=== PATIENT | male | born 1940 | race Caucasian/White ===

== ENCOUNTER 2021-12-18 09:42 | Inpatient (IN) ==
--- NOTE | 2021-12-04 14:10 | Anesthesiology Consultation ---
Date of Service December 04, 2021 Assessment & Plan (1) Encounter for pre-operative examination: Chart Review Chart Review: Acceptable Risk for Surgery and Patient NOT seen in Pre Admission Testing Consults Requested none History Surgery Operation Date: 12/18/21 11:15 Proposed Procedures p Robotic Laparoscopic Assisted Partial Colectomy - Lucho Huff DO, FACS Height/Weight Height: 6 ft Weight: 77.564 kg Allergies Allergy/AdvReac Type Severity Reaction Status Date / Time No Known Allergies Allergy Verified 12/03/21 10:11 Medications Home Medications Medication Instructions Recorded Confirmed Last Taken apixaban 5 mg tablet (Eliquis) 5 mg PO BID 11/05/21 12/03/21 11/15/21 aspirin 81 mg tablet,delayed 81 mg PO QPM 11/05/21 12/03/21 11/17/21 release (Adult Low Dose Aspirin) cyanocobalamin (vitamin B-12) 1,000 mcg PO QPM 11/05/21 12/03/21 11/17/21 1,000 mcg capsule folic acid 1 mg tablet 1 mg PO QPM 11/05/21 12/03/21 11/17/21 lisinopril 2.5 mg tablet 2.5 mg PO QPM 11/05/21 12/03/21 11/17/21 metoprolol succinate 25 mg 25 mg PO QPM 11/05/21 12/03/21 11/17/21 tablet,extended release 24 hr multivitamin 1 tab PO QPM 11/05/21 12/03/21 11/17/21 simvastatin 40 mg tablet 40 mg PO QPM 11/05/21 12/03/21 11/17/21 spironolactone 25 mg tablet 25 mg PO QPM 11/05/21 12/03/21 11/17/21 thiamine HCl (vitamin B1) 100 mg 100 mg PO QPM 11/05/21 12/03/21 11/17/21 tablet pantoprazole 40 mg tablet,delayed 40 mg PO DAILY #30 tabs 11/18/21 12/03/21 Unknown release metronidazole 500 mg tablet 500 mg PO ONCE #3 tabs 11/26/21 12/03/21 Unknown neomycin 500 mg tablet 1 g PO .COMPLEX pre-op #6 tabs 11/26/21 12/03/21 Unknown Past Medical History Medical History A-[facility] on eliquis; [facility]" Adenocarcinoma of sigmoid colon Alcohol abuse Anemia hx CAD (coronary artery disease) COPD (chronic obstructive pulmonary disease) History of COVID-19 10/27/21, home test, not hosp; sore throat, chills, fever>resolved. History of GI bleed "continues to lose blood internally, so that's the reason for the scopes" Hx of lipoma neck Hx of syncope "has happened twice, last time was 2 years ago. taken to ER, found to be dehydrated." Hyperlipidemia Hypertension NICM (nonischemic cardiomyopathy) Smoker Vitamin B deficiency Past Family History Family History Father Coronary heart disease Aunt No problems noted. Denies family history of Colorectal cancer Past Surgical History Surgical History H/O colonoscopy 11-18-21 Case History of esophagogastroduodenoscopy (EGD) Hx of cataract extraction Hx of tooth extraction rt/lt Social History Smoking Status: Current every day smoker tobacco type: cigarettes Smoking cigarettes per day: 6-10 Do You Dip or Chew Tobacco: No Hx Alcohol Use: Yes Alcohol type: beer Alcohol Intake Frequency Comment: 2-3 drinks per day Hx Substance Use: No substance use type: does not use Testing Electrocardiogram Date: 07/31/21 Findings: + NSR @ Echocardiogram Date: 08/01/21 EF: 45-50 LV Function: normal
[~2021-12-18 09:42] MED LIST: LR 15ML/HR IV SCH; cefOXitin 2,000 MG in DEXTROSE 5% 50 ML IV SCH
[2021-12-18] MEDS ORDERED: fentaNYL citrate 100 MCG/2 ML VIAL ONE ×3 (10:43→13:42)
[2021-12-18] MEDS ORDERED: DEXAMETHASONE SOD INJ 4 MG/ML VIAL ONE (10:43)
[2021-12-18] MEDS ORDERED: ONDANSETRON INJ 2 MG/ML 2 ML VIAL ONE (10:43)
[2021-12-18] MEDS ORDERED: PROPOFOL IV EMULSION 10 MG/ML 20 ML VIAL IV ONE (10:43)
[2021-12-18] MEDS ORDERED: LIDOCAINE 2% MPF LOCAL 5 ML VIAL INFIL ONE (10:44)
[2021-12-18] MEDS ORDERED: ROCURONIUM BROMIDE 10 MG/ML 5 ML VIAL IV ONE ×11 (10:44→15:32)
[2021-12-18] MEDS ORDERED: ePHEDrine sulfate 50 MG/ML AMP IV PRN (11:23)
[2021-12-18] MEDS ORDERED: ATROPINE SULFATE 0.1 MG/ML 10ML SYR IV PRN (11:23)
[2021-12-18] MEDS ORDERED: NALOXONE HCL 0.4 MG/1 ML VIAL/CARP IV PRN ×2 (11:23→19:41)
[2021-12-18] MEDS ORDERED: PROMETHAZINE HCL 12.5 MG in SODIUM CHLORIDE 0.9% 50 ML IV PRN (11:23)
[2021-12-18] MEDS ORDERED: FLUMAZENIL 0.1 MG/1 ML 10 ML VIAL IV PRN (11:23)
[2021-12-18] MEDS ORDERED: ONDANSETRON INJ 2 MG/ML 2 ML VIAL IV PRN (11:23)
[2021-12-18] MEDS ORDERED: LABETALOL HCL IV 5 MG/ML 20ML IV PRN (11:23)
--- NOTE | 2021-12-18 11:51 | History & Physical Bridge Note ---
Date of Service December 18, 2021 History & Physical Bridge Note I have examined the patient, reviewed the History & Physical and in the interval since the performance of the History & Physical I have noted the following changes of clinical significance: no changes noted
[2021-12-18] MEDS ORDERED: BUPIVACAINE 0.5 % 5 MG/1 ML MPF 30ML VIAL ONE (12:18)
[2021-12-18] MEDS ORDERED: BUPIVACAINE LIPOSOME 1.3% 266 MG/20 ML VIAL ONE (12:18)
[2021-12-18] MEDS ORDERED: ESMOLOL HCL INJ 10 MG/ML 10ML VIAL IV ONE ×3 (12:45→13:25)
[2021-12-18] MEDS ORDERED: NEOSTIGMINE METHYLSULFATE 1 MG/ML 10ML VIAL ONE (12:56)
[2021-12-18] MEDS ORDERED: GLYCOPYRROLATE 0.2 MG/ML VIAL ONE ×2 (12:56→13:08)
[2021-12-18] MEDS ORDERED: hydrALAZINE HCL 20 MG/ML VIAL ONE (13:14)
[2021-12-18] MEDS ORDERED: METOPROLOL TARTRATE 1 MG/ML VIAL IV ONE (13:22)
[2021-12-18] MEDS ORDERED: INDOCYANINE GREEN 25 MG VIAL INJ ONE (16:23)
[2021-12-18] MEDS ORDERED: MoRPHine SULFATE 2 MG/ML CARP ONE (16:38)
--- NOTE | 2021-12-18 17:34 | Post Operative Brief Note ---
PG Immediate Post Op with CF Date of Surgery December 18, 2021 Pre & Post Diagnosis Operation Date: 12/18/21 11:50 Pre-Op Diagnosis: Sigmoid colon Cancer Post-Op Diagnosis: Rectosigmoid cancer I identified the patient and participated in the time-out.: Yes Procedure Operation Date: 12/18/21 11:50 Actual Procedures p Robotic Laparoscopic Assisted low anterior resection with mobilization of splenic flexure, end-to-end anastomosis, and diverting loop ileostomy- Lucho Huff DO, FACS Surgeon Lucho Huff DO, FACS Motion Picture Set Grip Cory Prescott; Nataliia Hogan Estimated Blood Loss 50 Findings Consistent with Post-Op Diagnosis Tattoo visible just distal to the rectosigmoid junction. Rigid proctoscopy performed during case, tumor appeared to be 10 cm to 15 cm. Low anterior resection performed with total mesorectal excision. Splenic flexure mobilized. High ligation of FRANK completed with stapler. Gel port placed, end to end bridger stomosis performed with 28 mm EEA. Leak test negative. Drain placed, diverting loop ileostomy performed. Exparel injected. Specimens Specimen Description: A. Sigmoid and rectum Distal donut Drains Contreras Catheter Anesthesia Type General Disposition Accompanied Patient To Recovery: No Disposition: Recovery Room
[2021-12-18] MEDS ORDERED: SUGAMMADEX SODIUM 200 MG/2 ML VIAL IV ONE (17:43)
--- NOTE | 2021-12-18 17:49 | Operative Report ---
PG Post Operative Report Pre & Post Diagnosis Operation Date: 12/18/21 11:50 Pre-Op Diagnosis: Sigmoid colon Cancer Post-Op Diagnosis: Recto-sigmoid colon Cancer I identified the patient and participated in the time-out.: Yes Procedure Operation Date: 12/18/21 11:50 Actual Procedures p Robotic Laparoscopic assisted low anterior resection with mobilization of splenic flexure and end-to-end anastomosis, diverting loop ileostomy- Lucho Huff DO, FACS Surgeon Lucho Huff DO, DIMITRIS Jig Inspector Cory Prescott; Nataliia Hogan Estimated Blood Loss 50 Findings Consistent with Post-Op Diagnosis Tattoo visible just distal to the rectosigmoid junction. Rigid proctoscopy performed during case, tumor appeared to be 10 cm to 15 cm. Low anterior resection performed with total mesorectal excision. Splenic flexure mobilized. High ligation of FRANK completed with stapler. Gel port placed, end to end anastomosis performed with 28 mm EEA. Leak test negative. Drain placed, diverting loop ileostomy performed. Exparel injected. Fluids 1500 cc Specimens A. Sigmoid and rectum Rectal margin Drains 10 mm flat ROSALIE at colorectal anastomosis Anesthesia Type General Complications none Disposition Accompanied Patient To Recovery: No Disposition: Recovery Room Indications 81-year-old male with distal sigmoid colon cancer on recent colonoscopy for anemia, plan for robotic assisted laparoscopic partial colectomy. The risks of the procedure were discussed, all questions were answered, and the patient agreed to proceed with surgery as planned. Description of Procedure The patient underwent a bowel prep with antibiotics the day prior to surgery. The patient was properly identified, consented, and taken to the operating room where he was placed in the low lithotomy position. General endotracheal anesthesia was induced. SCDs, Contreras catheter, and arterial line, and NG tube were placed. Preoperative antibiotics were administered. Patient's abdomen and rectum were prepped and draped in the standard sterile fashion. Surgical timeout was performed and all parties were in agreement as the correct patient and procedure to be performed we continued as planned. An incision was made just to the right of the umbilicus and the Veress needle was inserted. Saline drop test confirmed entry into the abdomen. The abdomen was insufflated with carbon dioxide which the patient tolerated without incident. The Veress needle was removed and the abdomen was entered using the Optiview technique. The abdomen was inspected and no damage from initial trocar placement or Veress needle was noted. The abdomen was inspected and there was some staining from tattoo injection along the peritoneum. There was no evidence of carcinomatosis or metastatic disease. A portion of the tattoo did appear visible just distal to the sigmoid colon. At this point we elected to proceed with surgery. A 12 mm robotic port was placed in the right lower quadrant. 8 mm robotic ports were placed in the left upper quadrant x2. The robot was docked and the patient was placed in the Trendelenburg position and rotated slightly to the right. The small bowel was swept to the right upper quadrant. The colon was inspected and the tattoo was again visualized. This appeared to be in the high rectum and not in the sigmoid colon. The peritoneum was incised and we attempted a medial to lateral dissection, however we were unsuccessful. I then performed a lateral to medial dissection by taking down the white line of Toldt as well as some adhesions of the sigmoid colon to the lateral abdominal wall. This was accomplished using cautery scissors and extended from the sacral promontory along the sigmoid colon and left colon. The left ureter was identified and preserved throughout the case. We continued our dissection and a partial mobilization of the splenic flexure was performed. The descending and sigmoid colon were quite floppy so we did not have to complete a full mobilization of the splenic flexure. I then continued to dissect the mesentery of the left colon and sigmoid colon off of the retroperitoneum. It appeared that we would have adequate length to reach down into the pelvis. We then continued our dissection into the pelvis. The peritoneum was incised at the sacral promontory. The hypogastric nerves were identified and spared. The mesorectum was then dissected posteriorly. The hemorrhoidal vessels were divided with the vessel sealer. The posterior portion of the rectum and the mesorectal envelope were completely dissected. We were unable to identify the distal end of the tumor. My patient care nursing assistant performed a rigid proctoscopy and identified the tumor between 10 to 15 cm. We then proceeded to complete the dissection by taking down the lateral stalks and scoring the anterior portion of the peritoneum. We then used a green loaded 45 mm robotic stapler with multiple fires to perform the distal resection. Care was taken to get as far below the tattoo as we could. Once this was completed we then resected portions of the mesentery using the vessel sealer until we arrived at the inferior mesenteric artery. A high ligation of the inferior mesenteric artery was then completed using the briseno loaded robotic stapler. Hemostasis appeared excellent. We then completed the resection of the mesentery until we were in the sigmoid colon. ICG was then injected and the descending colon appeared to be well perfused. At this point we elected to exteriorize the colon to complete our anastomosis. The robot was undocked. A low midline incision was then performed for approximately 8 cm. The fascia was incised. A wound protector was placed. The patient's abdomen was draped with towels. The rectum and sigmoid colon were then exteriorized. We identified the area for our resection point that was within the descending colon that had excellent blood supply on ICG visualization. The proximal colon was clamped with a bowel clamp and the resection was completed using scissors. EEA sizers were placed and appeared to accommodate a 28 mm EEA stapler. This was then selected and the anvil was sewn into the descending colon with a pursestring suture of 2-0 Prolene. A small gap was identified and this was closed with a 3-0 Vicryl suture. The specimen was passed off the table. The distal resection point was palpated and the tumor appeared to be somewhat close to the staple line, but it did appear that we had completely resected the tumor. The area around the anvil was cleared of investing fat. The colon was allowed to drop back into the abdomen. A GelPort was placed. The abdomen was then reentered laparoscopically. The stapler was then inserted into the rectum and the spike was advanced just anterior to the staple line. This was connected to the anvil and the stapler was closed. The stapler was fired, opened, and then removed. There were 2 good donuts, and the distal resection margin appeared to be free of any tumor. This was sent to pathology. The anastomosis was then inspected with the rigid proctoscope by my patient care nursing assistant and appeared to be healthy without any evidence of bleeding. A leak test was performed and was negative. The abdomen was inspected and hemostasis appeared to be excellent. The anastomosis did not have any twists and appeared to be well perfused and healthy. Laparoscopy was ceased and the wound protector was removed. A 10 mm flat ROSALIE d rain was placed in the pelvis and exited through the left lower quadrant. It was secured into place with a 2-0 nylon suture. Due to the very distal anastomosis, we elected to perform a diverting loop ileostomy. A healthy piece of ileum approximately 20 to 30 cm proximal to the ileocecal valve was brought through the right lower quadrant 12 mm port after it was slightly extended. The pelvis was irrigated and hemostasis appeared excellent. The peritoneum was closed with a running 2-0 Vicryl suture. The fascia was closed with a running #0 PDS suture. The wound was irrigated and hemostasis was good. Exparel was injected in the fascia and subcutaneous tissues. The port sites was closed with 4-0 Monocryl suture and Dermabond was placed over these. The low midline incision was closed with cedrick and a sterile dressing was applied. The ileostomy was then matured. A section of the ROSALIE drain was used as the ostomy bar. This was placed through a window in the mesentery and secured into place with 2-0 nylon sutures on each end. The ileum was then opened transversely and the proximal end was matured with 3-0 Vicryl sutures in a Romina fashion. The distal end was sutured to the skin with 3-0 Vicryl suture. An ostomy device was placed. The ostomy appeared patent and healthy. Anesthesia was ceased and the patient was extubated in the operating room and taken to the PACU to recover without apparent incident. All sponge, instrument, and needle counts were correct at the conclusion of the case. The patient tolerated the procedure well. The physician's assistants were present and scrubbed throughout the case and were critical in positioning the patient, prepping and draping, retraction and exposure, driving the laparoscope, exchange of the robotic instruments, performa nce of the rigid proctoscopy, assistance with the anastomosis, closure the fascia and skin incisions, return to the ostomy, and placement of the dressings. I attest to the content of the Intraoperative Record and any orders documented therein. Any exceptions are noted below.
[2021-12-18] MEDS ORDERED: ALBUMIN HUMAN 5% 12.5 GM/250 ML VIAL IV ONE (18:13)
[2021-12-18] MEDS: fentaNYL citrate 100 MCG/2 ML VIAL IV PRN ×4 (18:25→18:40)
--- NOTE | 2021-12-18 18:31 | XRay Report ---
XR KUB/Abdomen 1 view CLINICAL HISTORY: ng tube placement TECHNIQUE: 1 view of the abdomen was obtained. Comparison: None available at the time of this dictation. FINDINGS: Enteric tube side-port is below the diaphragm. Surgical cedrick are seen in the lower abdomen. The os seous structures are grossly unremarkable. The bowel gas pattern is nonobstructive. A moderate amount of stool is noted within the large bowel. IMPRESSION: Satisfactory appearance of enteric tube. ACT 112: Negative or not required by law. Electronically signed by: Santino Bocanegra M.D. 12/18/2021 6:29 PM
[2021-12-18] MEDS: HYDROmorphone INJ 1 MG/ML SYRINGE IV PRN ×2 (18:46→18:51)
--- NOTE | 2021-12-18 19:25 | Anesthesiology Progress Note ---
Date of Service December 18, 2021 Anesthesia Post Procedure Vital Signs Vital Signs: Temp Pulse Pulse Resp BP BP Pulse Ox 12/18/21 18:45 36.6 C 89 15 109/60 98 12/18/21 18:35 86 14 115/60 99 12/18/21 18:25 79 15 110/53 L 105/48 L 100 12/18/21 18:15 82 14 94/51 L 100 12/18/21 18:05 80 14 85/61 L 100 12/18/21 17:55 85 16 103/71 100 12/18/21 19:20 86 16 107/60 95 12/18/21 19:11 84 18 100/57 L 97 12/18/21 18:55 88 17 115/67 97 12/18/21 17:48 36.5 C 96 H 23 121/66 98 12/18/21 10:08 36.8 C 97 H 20 139/84 98 O2 Del Method O2 Flow Rate 12/18/21 18:45 Nasal Cannula 2 12/18/21 18:35 Oxymask 4 12/18/21 18:25 Oxymask 4 12/18/21 18:15 Oxymask 4 12/18/21 18:05 Oxymask 4 12/18/21 17:55 Oxymask 6 12/18/21 19:20 Nasal Cannula 2 12/18/21 19:11 Nasal Cannula 2 12/18/21 18:55 Nasal Cannula 2 12/18/21 17:48 Oxymask 6 12/18/21 10:08 Room Air Pain Intensity Abdomen: Pain Intensity: 5 Transfer of Care Handoff Completed per policy Notes Mental Status: alert / awake / arousable Patient Amnestic to Procedure: Yes Nausea / Vomiting: adequately controlled Pain: adequately controlled Airway Patency, RR, SpO2: stable & adequate BP & HR: stable & adequate Hydration State: stable & adequate Anesthetic Complications: no major complications apparent
[2021-12-18 20:42] LABS: Creatinine Clr Calc Pharmacy 54.4 ml/min; Est GFR (African American) 69.5 ml/min
[2021-12-18] MEDS: HYDROmorphone PCA 30 MG/30 ML IV PRN (21:23)
[2021-12-18] MEDS: SODIUM CHLORIDE 0.9% 1000ML 1,000 ML IV SCH (22:33)
[2021-12-18] MEDS: ACETAMINOPHEN 1,000 MG/100 ML VIAL IV SCH (22:34)
[2021-12-18] MEDS: cefOXitin 2,000 MG in DEXTROSE 5% 50 ML IV SCH (22:34)
[2021-12-18] MEDS: LACTATED RINGER'S 1,000 ML IV SCH (22:34)
[2021-12-18] MEDS: METOPROLOL SUCC 25MG EXT REL TAB PO SCH (22:49)
[2021-12-19] MEDS: cefOXitin 2,000 MG in DEXTROSE 5% 50 ML IV SCH ×3 (04:12→15:49)
[2021-12-19 06:23] LABS: Basophils # (auto) 0.01 K/uL (0-0.2); Basophils % (auto) 0.1 %; Hematocrit (blood only) 36.2 % (40.1-51.0); Hemoglobin 11.3 g/dl (14.0-18.0); Immature Granulocytes # (auto) 0.03 K/uL (0.00-0.02); Immature Granulocytes % (auto) 0.4 %; Lymphocytes # (auto) 0.35 K/uL (1.2-3.4); Lymphocytes % (auto) 4.3 %; Mean Corpuscular Hemoglobin 28.1 pg (25.0-34.0); Mean Corpuscular Hgb Conc 31.2 g/dL (32.0-36.0); Mean Platelet Volume 9.7 fL (9.4-12.4); Monocytes # (auto) 1.03 K/uL (0.24-0.82); Monocytes % (auto) 12.5 %; Neutrophils # (auto) 6.81 K/uL (1.4-6.5); Neutrophils % (auto) 82.7 %; Platelet Count 224 K/uL (130-400); RDW Coefficient of Variation 17.2 % (11.5-14.5); RDW Standard Deviation 57.3 fL (36.4-46.3); Red Blood Count 4.02 M/uL (4.63-6.08); White Blood Count 8.23 K/ul (4.8-10.8)
[2021-12-19] MEDS: ACETAMINOPHEN 1,000 MG/100 ML VIAL IV SCH ×3 (06:26→21:17)
[2021-12-19] MEDS: LACTATED RINGER'S 1,000 ML IV SCH ×3 (06:27→23:48)
[2021-12-19 07:01] LABS: BUN Creatinine Ratio 13.1 (10-20); Calcium 8.4 mg/dl (8.5-10.1); Est GFR (African American) 75.1 ml/min; Est GFR (Non-African American) 64.8 ml/min; Potassium 4.6 mmol/L (3.5-5.1)
[2021-12-19] MEDS: ENOXAPARIN INJ 40 MG/0.4 ML SYR SQ SCH (08:51)
[2021-12-19] MEDS: PANTOprazole 40 MG in SYRINGE 0 ML IV SCH (08:53)
--- NOTE | 2021-12-19 11:22 | Surgery Progress Note ---
Date of Service December 19, 2021 Assessment & Plan (1) Colon cancer: Plan: POD 1 robotic assisted LAR Hgb 11 ambulate d/c NG begin Lovenox start clears Admission and Anticipated Discharge Date Admission Date: December 18, 2021 Supervising Physician Co-Signing Physician Notes Patient seen and examined, labs reviewed, agree with above. POD #1 robotic assisted low anterior resection with colorectal anastomosis and diverting loop ileostomy. Overall doing well, minimal pain and well controlled. On exam he is afebrile with stable vitals. Abdomen is soft, probably tender to palpation. The midline incision without infection or seroma/hematoma. ROSALIE drain serosanguineous. Ileostomy with mild edema, some sweat in the bag. H&H slightly decreased, likely dilutional. NG tube and Contreras DC'd, ambulate, I-S, Lovenox prophylaxis. Clear liquids. Subjective pain control adequate, not OOB Physical Exam Constitutional: WD/WN, vitals as above Gastrointestinal (Abdomen): Inspection/Auscultation: + abdominal surgical incision (dressing intact) and + abdominal surgical drain present (15 cc); abdomen not distended UOP 450 overnight ileostomy pink, edematous Results & Data ([facility]) Vital Signs (Past 12 Hours) Vital Signs Temp Pulse Pulse Resp BP Pulse Ox O2 Del Method 12/19/21 10:51 Room Air 12/19/21 08:00 36.7 C 78 14 106/53 L 99 Room Air 12/19/21 02:24 36.7 C 82 16 102/54 L 99 Nasal Cannula 12/19/21 00:38 36.4 C L 83 12 101/58 L 100 Nasal Cannula 12/18/21 23:27 36.7 C 73 72 15 102/50 L 99 Nasal Cannula O2 Flow Rate 12/19/21 10:51 12/19/21 08:00 12/19/21 02:24 2.0 12/19/21 00:38 2.0 12/18/21 23:27 2 PG Care Time/CCT Total # of Minutes Spent Total Time Spent with Patient: Total time spent is greater than 50% in coordination of care (as documented) at patient's floor/unit and/or counseling patient: Coding Level of Care Code None Diagnoses Colon cancer C18.9
[2021-12-19] MEDS: METOPROLOL SUCC 25MG EXT REL TAB PO SCH (14:45)
[2021-12-19] MEDS: SODIUM CHLORIDE 0.9% 1000ML 1,000 ML IV SCH (21:16)
[2021-12-19] MEDS: ASPIRIN 81 MG ECTAB PO SCH (21:16)
--- NOTE | 2021-12-19 23:02 | Communication Note ---
Date of Service: December 19, 2021 I was notified by nursing staff the patient was found to be tachycardic with heart rate anywhere from 1 10-1 40 on routine vitals. Twelve-lead EKG was ordered. I arrived at bedside to evaluate the patient within 5 minutes. Patient notes he is entirely asymptomatic without chest pain, shortness of breath, or palpitations On physical exam his heart rate is irregularly irregular. Blood pressure is 110/60. Heart rate is anywhere from 140-150. Twelve-lead EKG shows atrial fibrillation with nonspecific ST/T wave changes. Patient's chart was reviewed and preoperative EKG did show normal sinus rhythm. Preoperative echo did show patient had approximately 50% ejection fraction and normal LV function. Patient does have a history of atrial fibrillation in the past. He does take Eliquis as an outpatient but this has been held due to his recent surgery. He does take metoprolol which has been resumed postoperative Due to his atrial fibrillation we will proceed as follows: We will administer a 500 cc bolus of normal saline We will check labs including a CBC, PRP, magnesium, TSH, and troponin We will transfer patient to telemetry unit for close cardiovascular monitoring We will administer intravenous Lopressor once he is transferred to the telemetry unit We will request hospitalist consultation. I have discussed case with Dr. Thompson who will evaluate the patient upon arrival to the telemetry unit for
[2021-12-19 23:30] LABS: Basophils # (auto) 0.01 K/uL (0-0.2); Basophils % (auto) 0.1 %; Eosinophils # (auto) 0.02 K/uL (0-0.50); Eosinophils % (auto) 0.3 %; Hemoglobin 11.2 g/dl (14.0-18.0); Immature Granulocytes # (auto) 0.03 K/uL (0.00-0.02); Immature Granulocytes % (auto) 0.4 %; Lymphocytes # (auto) 0.74 K/uL (1.2-3.4); Lymphocytes % (auto) 9.7 %; Mean Corpuscular Hemoglobin 28.1 pg (25.0-34.0); Mean Corpuscular Hgb Conc 31.1 g/dL (32.0-36.0); Mean Corpuscular Volume 90.5 fL (80.0-100.0); Mean Platelet Volume 9.5 fL (9.4-12.4); Monocytes # (auto) 1.16 K/uL (0.24-0.82); Monocytes % (auto) 15.2 %; Neutrophils # (auto) 5.67 K/uL (1.4-6.5); Neutrophils % (auto) 74.3 %; Platelet Count 217 K/uL (130-400); RDW Coefficient of Variation 17.3 % (11.5-14.5); RDW Standard Deviation 57.7 fL (36.4-46.3); Red Blood Count 3.98 M/uL (4.63-6.08); White Blood Count 7.63 K/ul (4.8-10.8)
[2021-12-19] MEDS ORDERED: SODIUM CHLORIDE 0.9% 1000ML 500 ML IV ONE (23:30)
[2021-12-19] MEDS ORDERED: METOPROLOL TARTRATE 1 MG/ML VIAL IV STA (23:30)
[2021-12-19] MEDS: HYDROmorphone PCA 30 MG/30 ML IV PRN (23:34)
--- NOTE | 2021-12-19 23:50 | Hospitalist Consultation ---
Date of Consultation December 19, 2021 Assessment & Plan (1) Atrial fibrillation with RVR: Mr. 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 Hospitalist was consulted due to acute atrial fibrillation with RVR in the post- operative period. Atrial fibrillation with RVR - Home Eliquis has been held x4 days (since 3 days prior to surgery, per patient) - EKG shows a fib with RVR at [address] and T wave changes. - Tele monitor with rates in 130s to 170s - On chart review, TTE 08/01/21, LVEF 45-50% - As BP decreased from 115/81 to 92/60, agree with 500cc bolus of NSS - Additional 500cc bolus LR ordered - IV lopressor 5mg ordered - Patient received IV lopressor 5mg x2 - STAT labs showed initial troponin of 9463.9 - Repeat troponin 2 hours later ordered decreased to 8586.3 - Will continue to trend troponin q6h x2 - Will defer initiation of heparin gtt given decrease in troponin, asymptomatic, and post-op status - Electrolytes with K 3.9 and Mag 1.7 - 10 mEq K to be ordered as well as 2g Mag - Goal K 4.0 and goal Mag 2.0 - Patient converted to NSR at 0109 on 12/20/21, rates appropriate in the 70s - Will repeat EKG - Recommend that patient continue home metoprolol 25mg po BID - IV lopressor 5mg prn HR > 110 - Patient to be made NPO pending potential need for procedural intervention - Cardiology consulted Hypertension - Cr 0.89 - Recommend restarting patient's home lisinopril Hyperlipidemia - Recommend restarting patient's home statin Alcohol Abuse - On chart review, hx of alcohol abuse noted - Discussed with patient; states that he drinks 36-48 oz of beer per day - 6 day period of alcohol abstinence > 1 year ago during previous hospitalization w/o reported withdrawal - Patient denies hx of alcohol withdrawal - Will start patient on AWSS protocol Tobacco Use - Patient reports smoking 6 cigarettes per day - Declines need for nicotine patch Adenocarcinoma of sigmoid colon - Management per patient's primary team Thank you for allowing us to participate in the care of Mr. Myers. (2) Adenocarcinoma of sigmoid colon: (3) Hypertension: (4) Hyperlipidemia: (5) Alcohol abuse: (6) Tobacco use: Supervising Physician Co-Signing Physician Notes Attending addendum: I have physically seen this patient, have supervised the medical residents activities, and agree with the H&P unless as otherwise noted. Assessment and Plan: Atrial fibrillation with RVR/hypertension Seen postoperatively Most recent left ventricular ejection fraction 45 to 50% on 08/01/2021 Fluid boluses as noted Lopressor 5 mg IV IV x2 Troponin 9463.9 with emergent labs this evening, then 2-hour follow-up decreased 8586.3 Follow troponin serially Hold off on heparin drip at this time, in particular, due to increased risk of bleeding after major awad Continue metoprolol 25 mg p.o. twice daily Optimize potassium to target of 4, and magnesium to target of 2 Consult cardiology Remaining orders and notations as noted History of Present Illness Attending Physician: Lucho Huff DO, FACS History of Present Illness Mr. 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 He is now POD #1. Hospitalist was consulted due to acute atrial fibrillation with RVR. Patient was resting in bed and on routine vitals was found to be tachycardic with HR from 110s to 140s. An EKG was completed which showed atrial fibrillation with nonspecific ST/T wave changes. STAT labs were ordered including a HS- troponin which resulted at 9463.9. On initial exam, patient resting comfortably in bed. He states that he is asymptomatic and specifically denies CP, sensation of heart racing, palpitations, SOB, nausea, vomiting, headache, dizziness, or pain/swelling in the lower extremities. He is unsure about his hx of atrial fibrillation but does note that he is on Eliquis. Patient states that he held his home medications for 3 days prior to surgery. On chart review, it was noted that patient has a hx of alcohol abuse with consumption of 2-4 drinks per day. Patient states that his last drink was on Thursday (3 days ago). He typically drinks 36-48 oz. of [employer] beer per day. He does not have a history of alcohol withdrawal. States that longest period of alcohol abstinence in the past several years has been 6 days and that was > 1 year ago during hospitalization in [place]. Patient is on folic acid 1mg po qPM, thiamine 100mg po qPM, and vitamin B12 1,000 mcg po qPM. Allergies Allergy/AdvReac Type Severity Reaction Status Date / Time No Known Allergies Allergy Verified 12/18/21 10:03 Home Medications Medication Instructions Recorded Confirmed Type apixaban 5 mg tablet (Eliquis) 5 mg PO BID 11/05/21 12/18/21 History aspirin 81 mg tablet,delayed 81 mg PO QPM 11/05/21 12/18/21 History release (Adult Low Dose Aspirin) cyanocobalamin (vitamin B-12) 1,000 mcg PO QPM 11/05/21 12/18/21 History 1,000 mcg capsule folic acid 1 mg tablet 1 mg PO QPM 11/05/21 12/18/21 History lisinopril 2.5 mg tablet 2.5 mg PO QPM 11/05/21 12/18/21 History metoprolol succinate 25 mg 25 mg PO QPM 11/05/21 12/18/21 History tablet,extended release 24 hr multivitamin 1 tab PO QPM 11/05/21 12/18/21 History simvastatin 40 mg tablet 40 mg PO QPM 11/05/21 12/18/21 History spironolactone 25 mg tablet 25 mg PO QPM 11/05/21 12/18/21 History thiamine HCl (vitamin B1) 100 mg 100 mg PO QPM 11/05/21 12/18/21 History tablet pantoprazole 40 mg tablet,delayed 40 mg PO DAILY #30 tabs 11/18/21 12/18/21 Rx release metronidazole 500 mg tablet 500 mg PO ONCE #3 tabs 11/26/21 12/18/21 Rx neomycin 500 mg tablet 1 g PO .COMPLEX pre-op #6 tabs 11/26/21 12/18/21 Rx oxycodone-acetaminophen 5 mg-325 1 - 2 tab PO .q4-6h PRN pain, for 12/20/21 Rx mg tablet (Percocet) initial therapy, max 6 tabs per day #15 tabs Patient History Medical History (Updated 12/20/21 @ 05:59 by Lana Shelton, ) A-fib on eliquis; f/u Dr. Brown, [facility] [place]-"on the list to get the Watchman's procedure" Adenocarcinoma of sigmoid colon Alcohol abuse Anemia hx Atrial fibrillation with RVR CAD (coronary artery disease) COPD (chronic obstructive pulmonary disease) History of COVID-19 10/27/21, home test, not hosp; sore throat, chills, fever>resolved. History of GI bleed "continues to lose blood internally, so that's the reason for the scopes" Hx of lipoma neck Hx of syncope "has happened twice, last time was 2 years ago. taken to ER, found to be dehydrated." Hyperlipidemia Hypertension NICM (nonischemic cardiomyopathy) Smoker Vitamin B deficiency Surgical History (Updated 12/19/21 @ 09:22 by Rosey Andrea, KIKA) H/O colonoscopy 11-18-21 Case History of colon surgery (12/18/21) Robotic Laparoscopic assisted low anterior resection with mobilization of splenic flexure and end-to-end anastomosis, diverting loop ileostomy- Lucho Huff, , FACS History of esophagogastroduodenoscopy (EGD) Hx of cataract extraction Hx of tooth extraction rt/lt Family History Father Coronary heart disease Aunt No problems noted. Denies family history of Colorectal cancer Social History (Updated 11/26/21 @ 11:50 by Asia Collins, KIKA) Smoking Status: Current every day smoker Tobacco Type: Cigarettes packs per day: 0.25; Years Smoked: 50; Cigarettes Per Day: 6-10; Second Hand Exposure: No; Do You Dip or Chew Tobacco: No; Tobacco Cessation Education Requested by Patient: No Hx Alcohol Use: Yes Alcohol type: beer Alcohol Intake Frequency Comment: 2-3 day Hx Substance Use: No Preferred Language: Maldivian Communication Ability: Effective Chainstitch Seat Joiner Required: No Beliefs That Will Affect Care: None marital status: Current Living Situation: Spouse current occupational status: retired How many Children do You have: 4 Other Information That Helps Us Care for You: No Feels Safe at Home: Yes Safety Concerns: Feels Safe At This Time during the past year weight has: other Assistive Devices: None Review of Systems Review of Systems: See HPI Physical Exam Physical Exam: GENERAL: Elderly male appears stated age sitting in bed in no acute distress. Well developed and well nourished. Vital signs reviewed as above. EYES: EOMI. Anicteric sclerae. HENT: Moist mucous membranes. RESPIRATORY: Clear to auscultation bilaterally. No wheezing, rales, or rhonchi. CARDIOVASCULAR: Irregularly irregular rhythm. Tachycardic. ABDOMEN: Soft, non-tender and non-distended. Normal bowel sounds. EXTREMITIES: No edema. Non-tender. SKIN: Warm, dry. NEUROLOGIC: A/O x3. Normal speech. No focal neurological deficits. PSYCHIATRIC: Cooperative. Appropriate mood and affect. Results & Data Results & Data ([facility]) Vital Signs (Past 12 Hours) Vital Signs Temp Pulse Pulse Resp BP BP Pulse Ox 12/19/21 22:22 36.6 C 139 H 20 107/60 97 12/19/21 20:10 12/19/21 19:05 36.5 C 81 16 105/65 95 12/19/21 14:02 36.9 C 78 17 119/58 L 97 O2 Del Method O2 Flow Rate 12/19/21 22:22 Nasal Cannula 2 12/19/21 20:10 Nasal Cannula 1 12/19/21 19:05 Nasal Cannula 2 12/19/21 14:02 Nasal Cannula 2 Laboratory Results 12/20/21 12/19/21 12/19/21 Range/Units 00:55 23:14 23:14 WBC (4.8-10.8) K/ul RBC (4.63-6.08) M/uL Hgb (14.0-18.0) g/dl Hct (40.1-51.0) % MCV (80.0-100.0) fL MCH (25.0-34.0) pg MCHC (32.0-36.0) g/dL RDW Std Deviation (36.4-46.3) fL RDW Coeff of Tonya (11.5-14.5) % Plt Count (130-400) K/uL MPV (9.4-12.4) fL Immature Gran % (Auto) % Neut % (Auto) % Lymph % (Auto) % Holt % (Auto) % Eos % (Auto) % Baso % (Auto) % Neut # (Auto) (1.4-6.5) K/uL Lymph # (Auto) (1.2-3.4) K/uL Holt # (Auto) (0.24-0.82) K/uL Eos # (Auto) (0-0.50) K/uL Baso # (Auto) (0-0.2) K/uL Immature Gran # (Auto) (0.00-0.02) K/uL PT (9.0-12.0) Seconds INR (0.9-1.1) Sodium 133 L (136-145) mmol/L Potassium 3.9 (3.5-5.1) mmol/L Chloride 100 (98-107) mmol/L Carbon Dioxide 27 (21-32) mmol/L Anion Gap 6 (3-11) BUN 10 (6-23) mg/dl Creatinine 0.89 (0.6-1.4) mg/dl Est Cr Clr Drug Dosing 69.7 ml/min Est GFR ( Amer) 92.9 ml/min Est GFR (Non-Af Amer) 80.2 ml/min BUN/Creatinine Ratio 11.2 (10-20) Glucose 127 H (70-99(Fasting)) mg/dl Calcium 8.3 L (8.5-10.1) mg/dl Magnesium 1.7 (1.7-2.4) mg/dl Troponin I High Sens 8586.3 H* 9463.9 H* (0-20) pg/ml TSH 2.049 (0.300-4.500) uIu/ml 12/19/21 12/19/21 12/19/21 Range/Units 23:14 05:48 05:48 WBC 7.63 (4.8-10.8) K/ul RBC 3.98 L (4.63-6.08) M/uL Hgb 11.2 L (14.0-18.0) g/dl Hct 36.0 L (40.1-51.0) % MCV 90.5 (80.0-100.0) fL MCH 28.1 (25.0-34.0) pg MCHC 31.1 L (32.0-36.0) g/dL RDW Std Deviation 57.7 H (36.4-46.3) fL RDW Coeff of Tonya 17.3 H (11.5-14.5) % Plt Count 217 (130-400) K/uL MPV 9.5 (9.4-12.4) fL Immature Gran % (Auto) 0.4 % Neut % (Auto) 74.3 % Lymph % (Auto) 9.7 % Holt % (Auto) 15.2 % Eos % (Auto) 0.3 % Baso % (Auto) 0.1 % Neut # (Auto) 5.67 (1.4-6.5) K/uL Lymph # (Auto) 0.74 L (1.2-3.4) K/uL Holt # (Auto) 1.16 H (0.24-0.82) K/uL Eos # (Auto) 0.02 (0-0.50) K/uL Baso # (Auto) 0.01 (0-0.2) K/uL Immature Gran # (Auto) 0.03 H (0.00-0.02) K/uL PT 11.0 (9.0-12.0) Seconds INR 1.0 (0.9-1.1) Sodium 137 (136-145) mmol/L Potassium 4.6 (3.5-5.1) mmol/L Chloride 105 (98-107) mmol/L Carbon Dioxide 22 (21-32) mmol/L Anion Gap 10 (3-11) BUN 14 (6-23) mg/dl Creatinine 1.07 (0.6-1.4) mg/dl Est Cr Clr Drug Dosing 58.0 ml/min Est GFR ( Amer) 75.1 ml/min Est GFR (Non-Af Amer) 64.8 ml/min BUN/Creatinine Ratio 13.1 (10-20) Glucose 104 H (70-99(Fasting)) mg/dl Calcium 8.4 L (8.5-10.1) mg/dl Magnesium (1.7-2.4) mg/dl Troponin I High Sens (0-20) pg/ml TSH (0.300-4.500) uIu/ml 12/19/21 Range/Units 05:48 WBC 8.23 (4.8-10.8) K/ul RBC 4.02 L (4.63-6.08) M/uL Hgb 11.3 L (14.0-18.0) g/dl Hct 36.2 L (40.1-51.0) % MCV 90.0 (80.0-100.0) fL MCH 28.1 (25.0-34.0) pg MCHC 31.2 L (32.0-36.0) g/dL RDW Std Deviation 57.3 H (36.4-46.3) fL RDW Coeff of Tonya 17.2 H (11.5-14.5) % Plt Count 224 (130-400) K/uL MPV 9.7 (9.4-12.4) fL Immature Gran % (Auto) 0.4 % Neut % (Auto) 82.7 % Lymph % (Auto) 4.3 % Holt % (Auto) 12.5 % Eos % (Auto) 0.0 % Baso % (Auto) 0.1 % Neut # (Auto) 6.81 H (1.4-6.5) K/uL Lymph # (Auto) 0.35 L (1.2-3.4) K/uL Holt # (Auto) 1.03 H (0.24-0.82) K/uL Eos # (Auto) 0.00 (0-0.50) K/uL Baso # (Auto) 0.01 (0-0.2) K/uL Immature Gran # (Auto) 0.03 H (0.00-0.02) K/uL PT (9.0-12.0) Seconds INR (0.9-1.1) Sodium (136-145) mmol/L Potassium (3.5-5.1) mmol/L Chloride (98-107) mmol/L Carbon Dioxide (21-32) mmol/L Anion Gap (3-11) BUN (6-23) mg/dl Creatinine (0.6-1.4) mg/dl Est Cr Clr Drug Dosing ml/min Est GFR ( Amer) ml/min Est GFR (Non-Af Amer) ml/min BUN/Creatinine Ratio (10-20) Glucose (70-99(Fasting)) mg/dl Calcium (8.5-10.1) mg/dl Magnesium (1.7-2.4) mg/dl Troponin I High Sens (0-20) pg/ml TSH (0.300-4.500) uIu/ml Resident Activity Tracking Resident Involvement: Resident Care Provided Care Provided: Adult Hospital Medicine
[2021-12-20] MEDS ORDERED: METOPROLOL TARTRATE 1 MG/ML VIAL IV STA (00:11)
[2021-12-20 00:12] LABS: BUN Creatinine Ratio 11.2 (10-20); Calcium 8.3 mg/dl (8.5-10.1); Creatinine Clr Calc Pharmacy 69.7 ml/min; Est GFR (African American) 92.9 ml/min; Est GFR (Non-African American) 80.2 ml/min; Magnesium 1.7 mg/dl (1.7-2.4); Potassium 3.9 mmol/L (3.5-5.1)
[2021-12-20 00:15] LABS: Troponin I High Sensitivity 9463.9 pg/ml (0-20)
[2021-12-20] MEDS ORDERED: LACTATED RINGER'S 500 ML IV ONE (00:32)
--- NOTE | 2021-12-20 00:54 | Communication Note ---
Date of Service: December 20, 2021 Patient transferred to telemetry for close cardiovascular monitoring due to rapid atrial fibrillation. At time patient was found to be in atrial fibrill ation labs were ordered. CBC revealed white blood cell count and platelet count were within the lower range. Hemoglobin and hematocrit are 11.2 and 36.0. These levels of hemoglobin and hematocrit are stable from yesterday's values. Chemistry profile showed sodium was 133. Potassium and magnesium are noted to be normal. There is been no elevation in patient's BUN and creatinine as both of these are within normal range. TSH is noted to be within normal range. A troponin was checked and is noted to be elevated at 9463.9. At time patient was found to be in atrial fibrillation EKG showed nonspecific ST-T wave changes. An EKG was repeated at approximately 12:45 AM which again showed atrial fibrillation with rapid ventricular response. Nonspecific ST-T wave changes were noted. No ST segment elevations were noted. The patient was revisited at bedside and he was asymptomatic, specifically denying any chest pain, lightheadedness, dizziness, diaphoresis, or palpitations. He was also not short of breath. His blood pressure was noted to have decreased with a systolic blood pressure in the 90s. He received some additional intravenous fluids and his blood pressure had risen to approximately 113/70. I discussed case with Dr. Huff of surgery. He feels that intravenous heparin should be used cautiously as patient just had a major operation and we do not want to precipitate any bleeding. I further discussed case with the attending hospitalist, Dr. Thompson. He notes that we will continue measures to improve heart rate control. A repeat troponin is scheduled to be checked 2 hours from the time of the initial troponin. He feels that we can hold on starting intravenous heparin until we have the second troponin back to see which direction these values are trending. If repeat troponin is further elevated consideration will need to be given to initiating intravenous heparin. It is noteworthy mention that the patient does take aspirin as an outpatient and this medication was resumed postoperatively. The patient did receive a dose of this today.
[2021-12-20] MEDS: MAGNESIUM SULFATE / D5W 1 GM/100 ML BAG IV SCH ×2 (01:05→03:07)
[2021-12-20] MEDS ORDERED: LORazepam 3 MG in SYRINGE 0 ML IV PRN (01:13)
[2021-12-20] MEDS ORDERED: Ativan IV Alcohol Withdrawal--Active Protocol IV PRN (01:13)
[2021-12-20] MEDS ORDERED: LORazepam 2 MG in SYRINGE 0 ML IV PRN (01:13)
[2021-12-20] MEDS ORDERED: LORazepam 1 MG in SYRINGE 0 ML IV PRN (01:13)
--- NOTE | 2021-12-20 02:30 | Communication Note ---
Date of Service: December 20, 2021 Repeat troponin level was checked and noted to be 8586.3 which was decreased from patient's initial value. It is also noteworthy to mention that the patient converted to normal sinus rhythm and heart rate is now in the 70s. Patient remains asymptomatic. Case was discussed with the attending hospitalist again and was felt that due to the downtrending troponin anticoagulation was not required at this time. He did note that he will continue to trend the patient's troponin and request a cardiology consultation in the morning on 12/20/2021. We will continue to monitor closely.
[2021-12-20] MEDS: LACTATED RINGER'S 1,000 ML IV SCH ×2 (04:15→12:33)
[2021-12-20] MEDS: ACETAMINOPHEN 1,000 MG/100 ML VIAL IV SCH ×3 (05:58→21:48)
[2021-12-20] MEDS ORDERED: POTASSIUM CHLORIDE 10 MEQ TABCR PO ONE (06:08)
[2021-12-20 07:53] LABS: Basophils # (auto) 0.01 K/uL (0-0.2); Basophils % (auto) 0.2 %; Eosinophils # (auto) 0.02 K/uL (0-0.50); Eosinophils % (auto) 0.3 %; Hematocrit (blood only) 32.4 % (40.1-51.0); Hemoglobin 10.4 g/dl (14.0-18.0); Immature Granulocytes # (auto) 0.02 K/uL (0.00-0.02); Immature Granulocytes % (auto) 0.3 %; Lymphocytes # (auto) 0.63 K/uL (1.2-3.4); Lymphocytes % (auto) 9.8 %; Mean Corpuscular Hemoglobin 28.6 pg (25.0-34.0); Mean Corpuscular Hgb Conc 32.1 g/dL (32.0-36.0); Mean Platelet Volume 9.6 fL (9.4-12.4); Monocytes # (auto) 0.91 K/uL (0.24-0.82); Monocytes % (auto) 14.2 %; Neutrophils # (auto) 4.82 K/uL (1.4-6.5); Neutrophils % (auto) 75.2 %; Platelet Count 198 K/uL (130-400); RDW Coefficient of Variation 17.3 % (11.5-14.5); RDW Standard Deviation 57.1 fL (36.4-46.3); Red Blood Count 3.64 M/uL (4.63-6.08); White Blood Count 6.41 K/ul (4.8-10.8)
[2021-12-20 08:35] LABS: BUN Creatinine Ratio 11.1 (10-20); Calcium 8.2 mg/dl (8.5-10.1); Creatinine Clr Calc Pharmacy 86.2 ml/min; Est GFR (African American) 101.4 ml/min; Est GFR (Non-African American) 87.5 ml/min
[2021-12-20 08:51] LABS: Vitamin B12 888 pg/ml (180-914)
[2021-12-20] MEDS ORDERED: THIAMINE HCL 100 MG TAB PO SCH (09:00)
[2021-12-20] MEDS: FOLIC ACID 1 MG TAB PO SCH (09:39)
[2021-12-20] MEDS: ENOXAPARIN INJ 40 MG/0.4 ML SYR SQ SCH (09:39)
[2021-12-20] MEDS: PANTOprazole 40 MG in SYRINGE 0 ML IV SCH (10:18)
[2021-12-20] MEDS: NICOTINE 7 MG/24 HR TDSY TD SCH ×2 (10:18→10:19)
--- NOTE | 2021-12-20 10:23 | Surgery Progress Note ---
Date of Service December 20, 2021 Assessment & Plan (1) Colon cancer: Plan: POD 2 robotic assisted LAR with diverting ileostomy WBC 6.4, Hgb 10.4 Events noted from overnight with afib. Hospitalist evaluated and cardiology consulted. Troponin downtrending. Heart rates currently 70-80s. Patient is asymptomatic from afib standpoint. He has been NPO while awaiting cardiology input. Currently on ppx lovenox If pts nausea improves and no plans per cardiology may resume liquid diet Currently on DBAS for pain, can consider transition to prn IV's over next day or so Awaiting return of bowel fxn via ileostomy [facility] covering over the wknd Admission and Anticipated Discharge Date Admission Date: December 18, 2021 Supervising Physician Co-Signing Physician Notes Patient seen and examined, labs reviewed, agree with above. POD #2 robotic assisted low anterior resection with colorectal anastomosis and diverting loop ileostomy. Overall doing well, minimal pain and well controlled. Overnight he went into atrial fibrillation with rapid ventricular response. He was moved to telemetry unit and given a dose of IV Lopressor. Troponins were trended and medicine was consulted. This morning he is back into normal sinus rhythm and has been evaluated by cardiology and they do not feel he needs any further in tervention. He was asymptomatic throughout the event. He is tolerating clear liquids but does feel little full and had some nausea earlier On exam he is afebrile with stable vitals. Abdomen is soft, appropriately tender to palpation. The midline incision without infection or seroma/hematoma. ROSALIE drain serosanguineous. Ileostomy with mild edema, some sweat in the bag. WBC normal, H&H stable. We will advance him to full liquids though I cautioned him to take it slow. He should ambulate, I-S. We can restart his Eliquis tonight and discontinue the Lovenox. We will slowly advance to low fiber diet, potential discharge later this weekend or early next week. Dr. Hoffman covering over the weekend. Subjective Patient reports some mild nausea, no emesis. Has been utilizing DBAS with adequate pain control. Was out of bed yesterday, not today yet. Says last void was sometime overnight. Denies CP or SOB. Physical Exam Physical Exam: awake/alert, no distress Respiratory: normal respiratory effort Gastrointestinal (Abdomen): Inspection/Auscultation: + abdomen distended (mild), + abdominal surgical incision (c/d/i, no signs of infection) and + abdominal surgical drain present (serosang drainage. 25cc documented ) Percussion/Palpation: + abdomen tender (expected quinn incisional discomfor to palpation ) and abdomen soft ostomy pink and viable, some clear blood tinged fluid in pouch Results & Data ([facility]) Vital Signs (Past 12 Hours) Vital Signs Temp Pulse Pulse Pulse Pulse Resp BP 12/20/21 07:14 36.6 C 73 14 12/20/21 02:41 36.9 C 71 20 12/20/21 00:00 12/20/21 01:16 70 12/20/21 00:56 151 H 12/20/21 01:10 88 12/20/21 00:46 145 H 12/20/21 00:20 126 H 12/20/21 00:00 143 H 115/81 12/19/21 22:22 36.6 C 139 H 20 BP Pulse Ox O2 Del Method O2 Flow Rate 12/20/21 07:14 111/59 L 90 Room Air 12/20/21 02:41 105/63 98 Room Air 12/20/21 00:00 Room Air 12/20/21 01:16 12/20/21 00:56 12/20/21 01:10 103/53 L 12/20/21 00:46 113/70 12/20/21 00:20 92/60 L 12/20/21 00:00 12/19/21 22:22 107/60 97 Nasal Cannula 2 PG Care Time/CCT Total # of Minutes Spent Total Time Spent with Patient: Total time spent is greater than 50% in coordination of care (as documented) at patient's floor/unit and/or counseling patient: Coding Level of Care Code None Diagnoses Colon cancer C18.9
--- NOTE | 2021-12-20 13:07 | Cardiology Consultation ---
Date of Consultation December 20, 2021 Assessment & Plan (1) Atrial fibrillation with RVR: -known since March 2020. -continue metoprolol succinate 25 mg daily. -would use intravenous metoprolol tartrate p.r.n. rapid AFib. -restart Eliquis per surgery team. (2) CAD (coronary artery disease): -nonobstructive disease at time of cardiac catheterization March 2020. -continue medical management. (3) NICM (nonischemic cardiomyopathy): -LVEF 45% on echocardiogram in July. -continue metoprolol succinate and spironolactone. -consider initiation of an ACEI, ARB, or Entresto. (4) Hypertension: -adequate control on current regimen. (5) Hyperlipidemia: -resume simvastatin when able. History of Present Illness Attending Physician: Lucho Huff DO, DIMITRIS History of Present Illness Mr. 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 The patient developed a paroxysm of his known atrial fibrillation last night, therefore, this cons ultation was ordered. Of note, the patient typically follows with Dr. Brown in [place]. The patient carries a history of a nonischemic cardiomyopathy with an ejection fraction of approximately 45%. He underwent a cardiac catheterization March 2020 which noted nonobstructive disease (20-30% LM, luminal irregularities LAD, luminal irregularities LCx, 50-60% mid RCA). He underwent an echocardiogram in July of this year which noted borderline left ventricular systolic function with ejection fraction of 45-50%. There was aortic valve sclerosis and mild aortic insufficiency. The patient also carries a history of paroxysmal atrial fibrillation which was diagnosed by Holter monitor in March 2020. The patient was seen by Dr. Brown on July 01 and the patient was being considered for a Watchman device. At approximately 11:00 p.m. last evening, patient developed atrial fibrillation with a rapid ventricular response. He was given intravenous metoprolol and within 2 hours, converted back to sinus rhythm. His Eliquis is currently on hold due to his surgical procedure. Currently, patient is resting comfortably in bed without complaints. His and son are at the bedside. Past medical and surgical history 1. Nonobstructive coronary artery disease-see above 2. Nonischemic cardiomyopathy-45% 3. Aortic valve sclerosis 4. Mild aortic insufficiency 5. Hypertension 6. Hypercholesterolemia 7. Paroxysmal atrial fibrillation-March 2020 8. COPD 9. Vitamin-B deficiency 10. Intra-ocular lens implant Social history and lives with his Smokes 1/2 pack of cigarettes daily for the last 50 years. 2-3 alcoholic beverages per day Family history Noncontributory Review of systems A 10 review systems was undertaken and negative except that described above. Allergies Allergy/AdvReac Type Severity Reaction Status Date / Time No Known Allergies Allergy Verified 12/18/21 10:03 Home Medications Medication Instructions Recorded Confirmed Type apixaban 5 mg tablet (Eliquis) 5 mg PO BID 11/05/21 12/18/21 History aspirin 81 mg tablet,delayed 81 mg PO QPM 11/05/21 12/18/21 History release (Adult Low Dose Aspirin) cyanocobalamin (vitamin B-12) 1,000 mcg PO QPM 11/05/21 12/18/21 History 1,000 mcg capsule folic acid 1 mg tablet 1 mg PO QPM 11/05/21 12/18/21 History lisinopril 2.5 mg tablet 2.5 mg PO QPM 11/05/21 12/18/21 History metoprolol succinate 25 mg 25 mg PO QPM 11/05/21 12/18/21 History tablet,extended release 24 hr multivitamin 1 tab PO QPM 11/05/21 12/18/21 History simvastatin 40 mg tablet 40 mg PO QPM 11/05/21 12/18/21 History spironolactone 25 mg tablet 25 mg PO QPM 11/05/21 12/18/21 History thiamine HCl (vitamin B1) 100 mg 100 mg PO QPM 11/05/21 12/18/21 History tablet pantoprazole 40 mg tablet,delayed 40 mg PO DAILY #30 tabs 11/18/21 12/18/21 Rx release metronidazole 500 mg tablet 500 mg PO ONCE #3 tabs 11/26/21 12/18/21 Rx neomycin 500 mg tablet 1 g PO .COMPLEX pre-op #6 tabs 11/26/21 12/18/21 Rx Patient History Medical History (Updated 12/20/21 @ 05:59 by Lana Shelton, ) A-fib on eliquis; f/u Dr. Brown, [facility] [place]-"on the list to get the Watchman's procedure" Adenocarcinoma of sigmoid colon Alcohol abuse Anemia hx Atrial fibrillation with RVR CAD (coronary artery disease) COPD (chronic obstructive pulmonary disease) History of COVID-19 10/27/21, home test, not hosp; sore throat, chills, fever>resolved. History of GI bleed "continues to lose blood internally, so that's the reason for the scopes" Hx of lipoma neck Hx of syncope "has happened twice, last time was 2 years ago. taken to ER, found to be dehydrated." Hyperlipidemia Hypertension NICM (nonischemic cardiomyopathy) Smoker Vitamin B deficiency Surgical History (Updated 12/19/21 @ 09:22 by Rosey Andrea, RN) H/O colonoscopy 11-18-21 . Case History of colon surgery (12/18/21) Robotic Laparoscopic assisted low anterior resection with mobilization of splenic flexure and end-to-end anastomosis, diverting loop ileostomy- Lucho Huff DO, FACS History of esophagogastroduodenoscopy (EGD) Hx of cataract extraction Hx of tooth extraction rt/lt Family History Father Coronary heart disease Aunt No problems noted. Denies family history of Colorectal cancer Social History (Updated 11/26/21 @ 11:50 by Asia Collins, KIKA) Smoking Status: Current every day smoker Tobacco Type: Cigarettes packs per day: 0.25; Years Smoked: 50; Cigarettes Per Day: 6-10; Second Hand Exposure: No; Do You Dip or Chew Tobacco: No; Tobacco Cessation Education Requested by Patient: No Hx Alcohol Use: Yes Alcohol type: beer Alcohol Intake Frequency Comment: 2-3 day Hx Substance Use: No Preferred Language: Armenian Communication Ability: Effective Mammography Supervisor Required: No Beliefs That Will Affect Care: None marital status: Current Living Situation: Spouse current occupational status: retired How many Children do You have: 4 Other Information That Helps Us Care for You: No Feels Safe at Home: Yes Safety Concerns: Feels Safe At This Time during the past year weight has: other Assistive Devices: None Physical Exam Physical Exam: In general is well-developed well-nourished white male no acute distress. HEENT exam is negative. Neck is supple with full carotid upstrokes. No carotid bruits. Jugular is pressure is flat at 90. There is no thyromegaly. Cardiovascular exam reveals a regular rhythm with a normal S1-S2. Heart sounds are distant. No obvious murmurs. Lungs are clear without rales, rhonchi, or wheezes. Abdomen notes a dry dressing. Extremities reveal intact radial artery pulses bilaterally. There is no peripheral edema. Results & Data ([facility]) Vital Signs (Past 12 Hours) Vital Signs Temp Pulse Pulse Pulse Pulse Resp BP 12/20/21 11:17 37.1 C 78 22 12/20/21 10:50 71 12/20/21 07:14 36.6 C 73 14 111/59 L 12/20/21 02:41 36.9 C 71 20 105/63 12/20/21 01:16 70 12/20/21 01:10 88 103/53 L BP Pulse Ox O2 Del Method O2 Flow Rate 12/20/21 11:17 125/71 93 Nasal Cannula 2 12/20/21 10:50 12/20/21 07:14 90 Room Air 12/20/21 02:41 98 Room Air 12/20/21 01:16 12/20/21 01:10 Laboratory Results CBC notes hemoglobin of 10.4, hematocrit 32.4, white count 6.4, platelet count [id number]. Electrolytes note a sodium of 131, potassium 4.0, chloride 100, bicarb 20, BUN 8, creatinine 0.72, and glucose of 106. High sensitivity troponin initially was 9004 in 63.9 with follow-up values of 8586.3, and 6356.3. TSH is normal at 2.05. Diagnostic Findings EKG notes normal sinus rhythm with low voltage throughout and nonspecific T-wave abnormality. media monitor notes normal sinus rhythm since he converted at approximately 1:00 a.m. today. PG Care Time/CCT Total # of Minutes Spent Total Time Spent with Patient: Total time spent is greater than 50% in coordination of care (as documented) at patient's floor/unit and/or counseling patient: Coding Level of Care Code 20831 Initial Inpt Care Lvl 3 Diagnoses Atrial fibrillation with RVR I48.91 CAD (coronary artery disease) I25.10 NICM (nonischemic cardiomyopathy) I42.8 Hypertension I10 Hyperlipidemia E78.5
[2021-12-20] MEDS: METOPROLOL SUCC 25MG EXT REL TAB PO SCH (14:54)
[2021-12-20] MEDS: ASPIRIN 81 MG ECTAB PO SCH (14:55)
--- NOTE | 2021-12-20 15:20 | Electrocardiogram Report ---
Test Reason : Blood Pressure : / mmHG Vent. Rate : 152 BPM Atrial Rate : 156 BPM P-R Int : 000 ms QRS Dur : 088 ms QT Int : 302 ms P-R-T Axes : 000 047 -36 degrees QTc Int : 480 ms Atrial fibrillation with rapid ventricular response Nonspecific ST and T wave abnormality Abnormal ECG No previous ECGs available Confirmed by Alex Guevara ([id number]) on 12/20/2021 3:19:57 PM Referred By: Lucho Huff Confirmed By:Alex Guevara
--- NOTE | 2021-12-20 15:21 | Electrocardiogram Report ---
Test Reason : Blood Pressure : / mmHG Vent. Rate : 071 BPM Atrial Rate : 071 BPM P-R Int : 170 ms QRS Dur : 088 ms QT Int : 372 ms P-R-T Axes : 053 029 019 degrees QTc Int : 404 ms Normal sinus rhythm Low voltage QRS Nonspecific T wave abnormality Abnormal ECG When compared with ECG of 20-DEC-2021 00:40, (unconfirmed) Sinus rhythm has replaced Atrial fibrillation Vent. rate has decreased BY 64 BPM Confirmed by Alex Guevara ([id number]) on 12/20/2021 3:20:54 PM Referred By: Lucho Huff Confirmed By:Alex Guevara
--- NOTE | 2021-12-20 15:21 | Electrocardiogram Report ---
Test Reason : Blood Pressure : / mmHG Vent. Rate : 135 BPM Atrial Rate : 141 BPM P-R Int : 000 ms QRS Dur : 090 ms QT Int : 306 ms P-R-T Axes : 000 020 -62 degrees QTc Int : 459 ms Atrial fibrillation with rapid ventricular response Nonspecific T wave abnormality Abnormal ECG When compared with ECG of 19-DEC-2021 22:41, (unconfirmed) Nonspecific T wave abnormality now evident in Anterior leads Confirmed by Alex Guevara ([id number]) on 12/20/2021 3:20:31 PM Referred By: Lucho Huff Confirmed By:Alex Guevara
--- NOTE | 2021-12-20 17:04 | Hospitalist Progress Note ---
Date of Service December 20, 2021 Assessment & Plan (1) Atrial fibrillation with RVR: Plan: episode occurred last pm - spontaneous conversion back to NSR and has been in NSR since. likely 2nd to adrenergic stress in setting of #2 below. cont metoprolol succinate. eliquis BID has been resumed. keep mag/K wnl. cont to monitor on tele. most recent echo with EF 45-50%. TSH wnl. (2) Adenocarcinoma of sigmoid colon: Plan: POD #2 s/p Robotic Laparoscopic assisted low anterior resection with mobilization of splenic flexure and end-to-end anastomosis, diverting loop ileostomy by Dr Huff. diet advancement, etc per surgery. I did correspond with surgical PA regarding concern of fluid overload, dropping Na level, etc. permission to stop IV fluids given. (3) Chronic systolic CHF (congestive heart failure): Plan: may be mildly decompensated. Na levels have continued to drop with IV hydration. BNP is elevated. 5+ liters positive since admission. stop IV fluids. lasix 20mg PO x 1. aldactone resumed today. cont BB. re-eval am. most recent echo - 07/2021 in [place] - EF 45-50%, grade 1 diastolic dysfunction, no valvular dysfunction. normal LV wall motion. (4) Hyponatremia: Plan: worse with IV fluids. thus, stop IV fluids. provide gentle diuresis as above. checked urine osm, urine Na, and serum osm. BMP am. (5) Hypertension: Plan: BPs satisfactory at this time. Cont BB. Resume aldactone. Cont lisinopril. (6) Hyperlipidemia: Plan: statin on hold (7) Alcohol abuse: Plan: no signs of etoh withdrawal at this time increase thiamine to 200mg BID AWSS protocol (8) Tobacco use: Plan: provide nicoderm patch 7mg/day general counselor to quit smoking (9) CAD (coronary artery disease): Plan: 03/2020 - [facility] cardiac cath minimal nonobstructive lesions in LAD and LCx RCA with a 50-60% lesion only appreciate Dr Guevara's consultation elevated troponin thought NOT due to acute coronary syndrome but demand ischemia in setting of rapid a.fib has had NO ischemic symptoms during this stay (10) COPD (chronic obstructive pulmonary disease): Plan: without exacerbation at this time (11) Demand ischemia of myocardium: Plan: peak HS troponin 9463 trending down nicely seen by cardiology - felt to represent demand ischemia in setting of [facility] as [facility] no obstructive lesions then appreciate cardiology consult & input no ischemic symptoms since admission Plan will cont to follow Admission and Anticipated Discharge Date Admission Date: December 18, 2021 Subjective patient watching MLB playoffs on TV during the visit he denies any complaints except for mild abdominal pain is passing minimal amounts of flatus tolerating full liquids thus far overnight had a.fib w/ RVR spontaneous conversion back to NSR has been NSR since he continues to require NC O2 - o2 sats off of supplemental oxygen about 89-90% in RA per I/O documentation he is 5-6 liters + since admission fluid-phillips he does continue to smoke at home <10 ciggs/day Review of Systems Review of Systems: gen - no fever cv - no cp, no orthopnea pulm - no dyspnea reported GI - no vomiting Physical Exam Physical Exam: gen - NAD, comfortable neck - mild JVD present mouth - MMM heart - RRR, s1 s2, no murmur lungs - mild b/l basilar rales with mild exp wheezes b/l; no increased work of breathing abd - distended, BS+, incisions clean, drain in place, ostomy right side of abdomen draining serosanguinous looking fluid ext - no edema, pulses 2+ b/l psych - a/o x 3 Results & Data Results & [facility] ([facility]) Vital Signs (Past 12 Hours) Vital Signs Temp Pulse Pulse Resp BP BP Pulse Ox 12/20/21 15:02 37.1 C 60 19 150/85 H 92 12/20/21 11:17 37.1 C 78 22 125/71 93 12/20/21 10:50 71 12/20/21 07:14 36.6 C 73 14 111/59 L 90 O2 Del Method O2 Flow Rate 12/20/21 15:02 Nasal Cannula 0.5 12/20/21 11:17 Nasal Cannula 2 12/20/21 10:50 12/20/21 07:14 Room Air Laboratory Results Laboratory Results - last 24 hr 12/20/21 12/20/21 12/20/21 07:28 07:28 07:28 WBC 6.41 RBC 3.64 L Hgb 10.4 L Hct 32.4 L MCV 89.0 MCH 28.6 MCHC 32.1 RDW Std Deviation 57.1 H RDW Coeff of Tonya 17.3 H Plt Count 198 MPV 9.6 Immature Gran % (Auto) 0.3 Neut % (Auto) 75.2 Lymph % (Auto) 9.8 Gillespie % (Auto) 14.2 Eos % (Auto) 0.3 Baso % (Auto) 0.2 Neut # (Auto) 4.82 Lymph # (Auto) 0.63 L Gillespie # (Auto) 0.91 H Eos # (Auto) 0.02 Baso # (Auto) 0.01 Immature Gran # (Auto) 0.02 Sodium 131 L Potassium 4.0 Chloride 100 Carbon Dioxide 26 Anion Gap 5 BUN 8 Creatinine 0.72 Est Cr Clr Drug Dosing 86.2 Est GFR ( Amer) 101.4 Est GFR (Non-Af Amer) 87.5 BUN/Creatinine Ratio 11.1 Glucose 106 H Osmolality Calcium 8.2 L Troponin I High Sens 6356.3 H* D B-Natriuretic Peptide Vitamin B12 Folate Urine Osmolality Ur Random Sodium 12/20/21 12/20/21 12/20/21 07:28 17:40 17:40 WBC RBC Hgb Hct MCV MCH MCHC RDW Std Deviation RDW Coeff of Tonya Plt Count MPV Immature Gran % (Auto) Neut % (Auto) Lymph % (Auto) Gillespie % (Auto) Eos % (Auto) Baso % (Auto) Neut # (Auto) Lymph # (Auto) Gillespie # (Auto) Eos # (Auto) Baso # (Auto) Immature Gran # (Auto) Sodium 130 L Potassium Chloride Carbon Dioxide Anion Gap BUN Creatinine Est Cr Clr Drug Dosing Est GFR ( Amer) Est GFR (Non-Af Amer) BUN/Creatinine Ratio Glucose Osmolality 271 L Calcium Troponin I High Sens B-Natriuretic Peptide Vitamin B12 888 Folate > 22.30 Urine Osmolality Ur Random Sodium 12/20/21 12/20/21 12/20/21 17:40 Unknown Unknown WBC RBC Hgb Hct MCV MCH MCHC RDW Std Deviation RDW Coeff of Tonya Plt Count MPV Immature Gran % (Auto) Neut % (Auto) Lymph % (Auto) Gillespie % (Auto) Eos % (Auto) Baso % (Auto) Neut # (Auto) Lymph # (Auto) Gillespie # (Auto) Eos # (Auto) Baso # (Auto) Immature Gran # (Auto) Sodium Potassium Chloride Carbon Dioxide Anion Gap BUN Creatinine Est Cr Clr Drug Dosing Est GFR ( Amer) Est GFR (Non-Af Amer) BUN/Creatinine Ratio Glucose Osmolality Calcium Troponin I High Sens B-Natriuretic Peptide 307 H Vitamin B12 Folate Urine Osmolality 566 Ur Random Sodium 28 Diagnostic Findings Chest X-Ray 12/20/21 17:03 XR chest 1V portable CLINICAL HISTORY: hypoxia, ?pulm edema TECHNIQUE: Single frontal radiograph of the chest was obtained. Comparison: Comparison is made to chest radiograph 12/03/[address] chest 12/10/2021 FINDINGS: No lines and tubes are seen. The cardiomediastinal silhouette is normal. There is elevation of the right hemidiaphragm. Atelectasis is seen in the right lower lung. There is partial visualization of pneumoperitoneum in this patient status post low abdominal resection with diverting ileostomy. IMPRESSION: No acute abnormality and in particular no evidence of pulmonary edema. Expected postoperative pneumoperitoneum. ACT 112: Negative or not required by law. Electronically signed by: Santino Bocanegra M.D. 12/20/2021 5:27 PM PG Care Time/CCT Total # of Minutes Spent Total Time Spent with Patient: Total time spent is greater than 50% in coordination of care (as documented) at patient's floor/unit and/or counseling patient: Coding Level of Care Code 17680 Subseq Hosp Care Lvl 3 Diagnoses Atrial fibrillation with RVR I48.91 Adenocarcinoma of sigmoid colon C18.7 Chronic systolic CHF (congestive heart failure) I50.22 Hyponatremia E87.1 Hypertension I10 Hyperlipidemia E78.5 Alcohol abuse F10.10 Tobacco use Z72.0 CAD (coronary artery disease) I25.10 COPD (chronic obstructive pulmonary disease) J44.9 Demand ischemia of myocardium I24.8
--- NOTE | 2021-12-20 17:29 | XRay Report ---
XR chest 1V portable CLINICAL HISTORY: hypoxia, ?pulm edema TECHNIQUE: Single frontal radiograph of the chest was obtained. Comparison: Comparison is made to chest radiograph 12/03/[address] chest 12/10/2021 FINDINGS: No lines and tubes are seen. The cardiomediastinal silhouette is normal. There is elevation of the ri ght hemidiaphragm. Atelectasis is seen in the right lower lung. There is partial visualization of pne umoperitoneum in this patient status post low abdominal resection with diverting ileostomy. IMPRESSION: No acute abnormality and in particular no evidence of pulmonary edema. Expected postoperative pneumop eritoneum. ACT 112: Negative or not required by law. Electronically signed by: Santino Bocanegra M.D. 12/20/2021 5:27 PM
[2021-12-20] MEDS: SODIUM CHLORIDE 0.9% 1000ML 1,000 ML IV SCH (18:41)
[2021-12-20] MEDS ORDERED: FUROSEMIDE 20 MG TAB PO ONE (18:45)
--- NOTE | 2021-12-20 19:44 | Billing Data ---
Date of Service December 20, 2021 Coding Level of Care Code 45581 Inpt Consult Level 3
[2021-12-20] MEDS: APIXABAN 5 MG TABLET PO SCH (20:02)
[2021-12-20] MEDS: THIAMINE HCL 100 MG TAB PO SCH (20:03)
[2021-12-20] MEDS ORDERED: SPIRONOLACTONE 25 MG TAB PO SCH (21:00)
[2021-12-20] MEDS ORDERED: lisinopril 2.5 MG TAB PO SCH ×2 (21:00)
[2021-12-21] MEDS: ONDANSETRON INJ 2 MG/ML 2 ML VIAL IV PRN ×4 (04:37→21:10)
[2021-12-21] MEDS: ACETAMINOPHEN 1,000 MG/100 ML VIAL IV SCH ×2 (06:00→13:37)
[2021-12-21 07:29] LABS: Calcium 8.5 mg/dl (8.5-10.1); Creatinine Clr Calc Pharmacy 75.6 ml/min; Est GFR (African American) 96.1 ml/min; Est GFR (Non-African American) 82.9 ml/min; Potassium 4.4 mmol/L (3.5-5.1)
[2021-12-21] MEDS ORDERED: FUROSEMIDE 20 MG TAB PO ONE (07:43)
[2021-12-21 08:01] LABS: Basophils # (auto) 0.01 K/uL (0-0.2); Basophils % (auto) 0.1 %; Eosinophils # (auto) 0.02 K/uL (0-0.50); Eosinophils % (auto) 0.3 %; Hematocrit (blood only) 37.5 % (40.1-51.0); Hemoglobin 12.1 g/dl (14.0-18.0); Immature Granulocytes # (auto) 0.04 K/uL (0.00-0.02); Immature Granulocytes % (auto) 0.6 %; Lymphocytes # (auto) 0.22 K/uL (1.2-3.4); Lymphocytes % (auto) 3.3 %; Mean Corpuscular Hemoglobin 28.3 pg (25.0-34.0); Mean Corpuscular Hgb Conc 32.3 g/dL (32.0-36.0); Mean Corpuscular Volume 87.8 fL (80.0-100.0); Mean Platelet Volume 11.1 fL (9.4-12.4); Monocytes # (auto) 0.61 K/uL (0.24-0.82); Monocytes % (auto) 9.1 %; Neutrophils # (auto) 5.78 K/uL (1.4-6.5); Neutrophils % (auto) 86.6 %; Platelet Count 189 K/uL (130-400); RDW Coefficient of Variation 16.7 % (11.5-14.5); RDW Standard Deviation 53.7 fL (36.4-46.3); Red Blood Count 4.27 M/uL (4.63-6.08); White Blood Count 6.68 K/ul (4.8-10.8)
[2021-12-21] MEDS: PANTOprazole 40 MG in SYRINGE 0 ML IV SCH (09:09)
[2021-12-21] MEDS: THIAMINE HCL 100 MG TAB PO SCH ×2 (09:09→21:04)
[2021-12-21] MEDS: APIXABAN 5 MG TABLET PO SCH ×2 (09:09→21:04)
[2021-12-21] MEDS: FOLIC ACID 1 MG TAB PO SCH (09:09)
[2021-12-21] MEDS: NICOTINE 7 MG/24 HR TDSY TD SCH (09:09)
--- NOTE | 2021-12-21 10:55 | Hospitalist Progress Note ---
Date of Service December 21, 2021 Assessment & Plan (1) Atrial fibrillation with RVR: Plan: episode occurred evening of 12/19 - spontaneous conversion back to NSR and has been in NSR since. likely 2nd to adrenergic stress in setting of #2 below. cont metoprolol succinate. eliquis BID has been resumed. mag/K wnl. TSH wnl cont to monitor on tele. most recent echo with EF 45-50%. (2) Adenocarcinoma of sigmoid colon: Plan: POD #3 s/p Robotic Laparoscopic assisted low anterior resection with mobilization of splenic flexure and end-to-end anastomosis, diverting loop ileostomy by Dr Huff. diet advancement, etc per surgery. defer pain management to surgery. Awaiting return of bowel function. (3) Chronic systolic CHF (congestive heart failure): Plan: may have been mildly decompensated in the setting of copious IV hydration, his surgery, rapid a.fib, etc. Na levels had continued to drop with IV hydration. BNP elevated at 300. 5+ liters positive since admission. stopped IV fluids last pm. gaive lasix 20mg PO x 1 yesterday; will give another PO dose today. cont aldactone. cont BB. BMP stable. Na slightly better today. most recent echo - 07/2021 in [place] - EF 45-50%, grade 1 diastolic dysfunction, no valvular dysfunction. normal LV wall motion. (4) Hyponatremia: Plan: worsened with IV fluids. thus, stopped IV fluids on 12/20. provide gentle diuresis as above. Na stable/slightly better today. BMP am. (5) Hypertension: Plan: BPs satisfactory at this time. Cont BB. Cont aldactone. Cont lisinopril. (6) Hyperlipidemia: Plan: statin on hold (7) Alcohol abuse: Plan: no signs of etoh withdrawal at this time cont thiamine 200mg BID AWSS protocol (8) Tobacco use: Plan: nicoderm patch 7mg/day phone counselor to quit smoking (9) CAD (coronary artery disease): Plan: 03/2020 - [facility] cardiac cath minimal nonobstructive lesions in LAD and LCx RCA with a 50-60% lesion only appreciate Dr Guevara's consultation elevated troponin thought NOT due to acute coronary syndrome but demand ischemia in setting of rapid a.fib has had NO ischemic symptoms during this stay (10) COPD (chronic obstructive pulmonary disease): Plan: without exacerbation at this time albuterol prn (11) Demand ischemia of myocardium: Plan: peak HS troponin 9463 trending down nicely seen by cardiology - felt to represent demand ischemia in setting of [facility] no obstructive lesions then appreciate cardiology consult & input no ischemic symptoms since admission Plan will cont to follow Admission and Anticipated Discharge Date Admission Date: December 18, 2021 Subjective tele overnight - no PAF; NSR only he doesn't feel good this am didn't touch his liquid tray - had nausea no gas yet via his ostomy appropriate incisional abdominal pain no emesis denies cp denies dyspnea Review of Systems Review of Systems: gen - tired cv - no orthopnea, no cp pulm - no cough GI - bloating, pain, and nausea - passing his urine w/o difficulty Physical Exam Physical Exam: gen - NAD, comfortable sitting in the chair neck - no JVD today mouth - MMM heart - RRR, s1 s2, no murmur lungs - resolved rales; scant exp wheezes scattered; airation a little better today; no increased work of breathing abd - distended, BS+ (improved today) incisions clean, drain in place, ostomy right side of abdomen draining serosanguinous looking fluid ext - no edema, pulses 2+ b/l psych - a/o x 3 Results & Data Results & Data ([facility]) Vital Signs (Past 12 Hours) Vital Signs Temp Pulse Pulse Resp BP Pulse Ox O2 Del Method 12/21/21 08:06 72 12/21/21 08:06 Nasal Cannula 12/21/21 07:54 36.6 C 72 16 122/76 97 Room Air 12/21/21 04:27 36.8 C 72 20 134/81 94 Nasal Cannula 12/21/21 04:00 72 O2 Flow Rate 12/21/21 08:06 12/21/21 08:06 2 12/21/21 07:54 1 12/21/21 04:27 2 12/21/21 04:00 Laboratory Results Laboratory Results - last 24 hr 12/20/21 12/20/21 12/20/21 17:40 17:40 17:40 WBC RBC Hgb Hct MCV MCH MCHC RDW Std Deviation RDW Coeff of Tonya Plt Count MPV Immature Gran % (Auto) Neut % (Auto) Lymph % (Auto) [place] % (Auto) Eos % (Auto) Baso % (Auto) Neut # (Auto) Lymph # (Auto) [place] # (Auto) Eos # (Auto) Baso # (Auto) Immature Gran # (Auto) Sodium 130 L Potassium Chloride Carbon Dioxide Anion Gap BUN Creatinine Est Cr Clr Drug Dosing Est GFR ( Amer) Est GFR (Non-Af Amer) BUN/Creatinine Ratio Glucose Osmolality 271 L Calcium Magnesium B-Natriuretic Peptide 307 H Urine Osmolality Ur Random Sodium 12/20/21 12/20/21 12/21/21 Unknown Unknown 05:54 WBC 6.68 RBC 4.27 L Hgb 12.1 L Hct 37.5 L MCV 87.8 MCH 28.3 MCHC 32.3 RDW Std Deviation 53.7 H RDW Coeff of Tonya 16.7 H Plt Count 189 MPV 11.1 Immature Gran % (Auto) 0.6 Neut % (Auto) 86.6 Lymph % (Auto) 3.3 [place] % (Auto) 9.1 Eos % (Auto) 0.3 Baso % (Auto) 0.1 Neut # (Auto) 5.78 Lymph # (Auto) 0.22 L [place] # (Auto) 0.61 Eos # (Auto) 0.02 Baso # (Auto) 0.01 Immature Gran # (Auto) 0.04 H Sodium Potassium Chloride Carbon Dioxide Anion Gap BUN Creatinine Est Cr Clr Drug Dosing Est GFR ( Amer) Est GFR (Non-Af Amer) BUN/Creatinine Ratio Glucose Osmolality Calcium Magnesium B-Natriuretic Peptide Urine Osmolality 566 Ur Random Sodium 28 12/21/21 05:54 WBC RBC Hgb Hct MCV MCH MCHC RDW Std Deviation RDW Coeff of Tonya Plt Count MPV Immature Gran % (Auto) Neut % (Auto) Lymph % (Auto) [place] % (Auto) Eos % (Auto) Baso % (Auto) Neut # (Auto) Lymph # (Auto) [place] # (Auto) Eos # (Auto) Baso # (Auto) Immature Gran # (Auto) Sodium 131 L Potassium 4.4 Chloride 97 L Carbon Dioxide 23 Anion Gap 11 BUN 9 Creatinine 0.82 Est Cr Clr Drug Dosing 75.6 Est GFR ( Amer) 96.1 Est GFR (Non-Af Amer) 82.9 BUN/Creatinine Ratio 11.0 Glucose 110 H Osmolality Calcium 8.5 Magnesium 2.0 B-Natriuretic Peptide Urine Osmolality Ur Random Sodium PG Care Time/CCT Total # of Minutes Spent Total Time Spent with Patient: Total time spent is greater than 50% in coordination of care (as documented) at patient's floor/unit and/or counseling patient: Coding Level of Care Code 35455 Subseq Hosp Care Lvl 2 Diagnoses Atrial fibrillation with RVR I48.91 Adenocarcinoma of sigmoid colon C18.7 Chronic systolic CHF (congestive heart failure) I50.22 Hyponatremia E87.1 Hypertension I10 Hyperlipidemia E78.5 Alcohol abuse F10.10 Tobacco use Z72.0 CAD (coronary artery disease) I25.10 COPD (chronic obstructive pulmonary disease) J44.9 Demand ischemia of myocardium I24.8
--- NOTE | 2021-12-21 11:31 | Cardiology Progress Note ---
Date of Service December 21, 2021 Assessment & Plan (1) Paroxysmal A-fib: (2) CAD (coronary artery disease): (3) NICM (nonischemic cardiomyopathy): (4) Hypertension: Plan Patient is doing well with no recurrence of atrial fibrillation and no evidence of ongoing myocardial ischemia or congestive heart failure. Agree with restarting apixaban. Continue metoprolol. No ongoing cardiac issues, will sign off. Admission and Anticipated Discharge Date Admission Date: December 18, 2021 Subjective Patient without complaint. Uneventful night, rhythm remains sinus since yesterday. Physical Exam Physical Exam: No distress. Normotensive. Plse 72 bpm and regular. Skin: no ecchymoses or generalized lesions. HEENT: unremarkable. Neck: no JVD or carotid bruits. Lungs: clear. Cardiac: regular rhythm, no murmur or gallop. Abdomen: nondistended. Extremities: no edema, pulses intact. Neurologic: normal affect, nonfocal. Results & Data ([facility]) Vital Signs (Past 12 Hours) Vital Signs Temp Pulse Pulse Resp BP Pulse Ox O2 Del Method 12/21/21 08:06 72 12/21/21 08:06 Nasal Cannula 12/21/21 07:54 97.9 F 72 16 122/76 97 Room Air 12/21/21 04:27 98.2 F 72 20 134/81 94 Nasal Cannula 12/21/21 04:00 72 O2 Flow Rate 12/21/21 08:06 12/21/21 08:06 2 12/21/21 07:54 1 12/21/21 04:27 2 12/21/21 04:00 Diagnostic Findings Telemetry showed sinus rhythm. PG Care Time/CCT Total # of Minutes Spent Total Time Spent with Patient: Total time spent is greater than 50% in coordination of care (as documented) at patient's floor/unit and/or counseling patient: Coding Level of Care Code 40931 Subseq Hosp Care Lvl 2 Diagnoses Paroxysmal A-fib I48.0 CAD (coronary artery disease) I25.10 NICM (nonischemic cardiomyopathy) I42.8 Hypertension I10
[2021-12-21] MEDS ORDERED: METOPROLOL TARTRATE 25 MG TAB PO STA (12:25)
--- NOTE | 2021-12-21 12:57 | Surgery Progress Note ---
Date of Service December 21, 2021 Assessment & Plan (1) Colon cancer: Plan: F/U S/P Robotic Laparoscopic Assisted Lower anterior resection with mobilization of splenic flexure, diverting loop ileostomy, POD 3 pt is stable, tolerated diet, continue treatment repeat labs in morning, will F/U, Admission and Anticipated Discharge Date Admission Date: December 18, 2021 Supervising Physician Co-Signing Physician Notes Attending addendum: I have physically seen this patient, have supervised the medical residents act ivities, and agree with the H&P unless as otherwise noted. Assessment and Plan: Atrial fibrillation with RVR/hypertension Seen postoperatively Most recent left ventricular ejection fraction 45 to 50% on 08/01/2021 Fluid boluses as noted Lopressor 5 mg IV IV x2 Troponin 9463.9 with emergent labs this evening, then 2-hour follow-up decreased 8586.3 Follow troponin serially Hold off on heparin drip at this time, in particular, due to increased risk of bleeding after major awad Continue metoprolol 25 mg p.o. twice daily Optimize potassium to target of 4, and magnesium to target of 2 Consult cardiology Remaining orders and notations as noted Subjective Patient without complaint. Uneventful night, rhythm remains sinus since yesterday. 12/21/2021 12:56PM Dr. Hoffman F/U S/P Robotic Laparoscopic Assisted Lower anterior resection with mobilization of splenic flexure, diverting loop ileostomy, POD 3 pt is stable, no significant abdominal pain, no stool in ileostomy bag, pt tolerated full liquid diet, no fever, ROSALIE 30ml clear color Physical Exam Constitutional: WD/WN, vitals as above Eyes: PERRL, conjunctivae normal, anicteric sclerae Neck: trachea midline, no thyromegaly Respiratory: normal respiratory effort, lungs clear to auscultation Cardiovascular: RRR, no murmur, no edema Gastrointestinal (Abdomen): soft, mild tenderness at incision site, no rebound pain, ileostomy intact, no stool in bag, all incisions intact, no redness, BS +, Musculoskeletal: no cyanosis or clubbing, extremities motor strength 5/5 Neurologic: patellar DTR's 2+ bilat, sensation intact Psychiatric: A+Ox3, euthymic affect Results & Data ([facility]) Vital Signs (Past 12 Hours) Vital Signs Temp Pulse Pulse Resp BP Pulse Ox O2 Del Method 12/21/21 11:48 36.5 C 72 22 135/70 94 Nasal Cannula 12/21/21 08:06 72 12/21/21 08:06 Nasal Cannula 12/21/21 07:54 36.6 C 72 16 122/76 97 Room Air 12/21/21 04:27 36.8 C 72 20 134/81 94 Nasal Cannula 12/21/21 04:00 72 O2 Flow Rate 12/21/21 11:48 1 12/21/21 08:06 12/21/21 08:06 2 12/21/21 07:54 1 12/21/21 04:27 2 12/21/21 04:00 Laboratory Results Abnormal lab results 12/20/21 12/20/21 12/20/21 Range/Units 17:40 17:40 17:40 RBC (4.63-6.08) M/uL Hgb (14.0-18.0) g/dl Hct (40.1-51.0) % RDW Std Deviation (36.4-46.3) fL RDW Coeff of Tonya (11.5-14.5) % Lymph # (Auto) (1.2-3.4) K/uL Immature Gran # (Auto) (0.00-0.02) K/uL Sodium 130 L (136-145) mmol/L Chloride (98-107) mmol/L Glucose (70-99(Fasting)) mg/dl Osmolality 271 L (280-300) mOsm/kg B-Natriuretic Peptide 307 H (0-100) pg/ml 12/21/21 12/21/21 Range/Units 05:54 05:54 RBC 4.27 L (4.63-6.08) M/uL Hgb 12.1 L (14.0-18.0) g/dl Hct 37.5 L (40.1-51.0) % RDW Std Deviation 53.7 H (36.4-46.3) fL RDW Coeff of Tonya 16.7 H (11.5-14.5) % Lymph # (Auto) 0.22 L (1.2-3.4) K/uL Immature Gran # (Auto) 0.04 H (0.00-0.02) K/uL Sodium 131 L (136-145) mmol/L Chloride 97 L (98-107) mmol/L Glucose 110 H (70-99(Fasting)) mg/dl Osmolality (280-300) mOsm/kg B-Natriuretic Peptide (0-100) pg/ml
[2021-12-21] MEDS ORDERED: STAT IV Infusion **Titration per Protocol STA (13:47)
[2021-12-21] MEDS: dilTIAZem HCL 125 MG in DEXTROSE 5% 100 ML IV SCH ×2 (14:29→23:01)
[2021-12-21] MEDS: METOPROLOL SUCC 25MG EXT REL TAB PO SCH (14:30)
[2021-12-21] MEDS: ASPIRIN 81 MG ECTAB PO SCH (15:02)
[2021-12-21] MEDS: SODIUM CHLORIDE 0.9% 1000ML 1,000 ML IV SCH (21:05)
[2021-12-22] MEDS: ONDANSETRON INJ 2 MG/ML 2 ML VIAL IV PRN ×4 (05:02→21:00)
[2021-12-22 07:09] LABS: Basophils # (auto) 0.02 K/uL (0-0.2); Basophils % (auto) 0.2 %; Eosinophils # (auto) 0.05 K/uL (0-0.50); Eosinophils % (auto) 0.6 %; Hematocrit (blood only) 39.7 % (40.1-51.0); Hemoglobin 12.8 g/dl (14.0-18.0); Immature Granulocytes # (auto) 0.04 K/uL (0.00-0.02); Immature Granulocytes % (auto) 0.5 %; Lymphocytes # (auto) 0.47 K/uL (1.2-3.4); Lymphocytes % (auto) 5.8 %; Mean Corpuscular Hemoglobin 28.4 pg (25.0-34.0); Mean Corpuscular Hgb Conc 32.2 g/dL (32.0-36.0); Mean Platelet Volume 9.2 fL (9.4-12.4); Monocytes # (auto) 1.09 K/uL (0.24-0.82); Monocytes % (auto) 13.4 %; Neutrophils # (auto) 6.45 K/uL (1.4-6.5); Neutrophils % (auto) 79.5 %; Platelet Count 320 K/uL (130-400); RDW Coefficient of Variation 16.8 % (11.5-14.5); Red Blood Count 4.51 M/uL (4.63-6.08); White Blood Count 8.12 K/ul (4.8-10.8)
[2021-12-22 07:34] LABS: BUN Creatinine Ratio 14.6 (10-20); Calcium 8.8 mg/dl (8.5-10.1); Creatinine Clr Calc Pharmacy 60.2 ml/min; Est GFR (African American) 78.6 ml/min; Est GFR (Non-African American) 67.8 ml/min; Potassium 4.2 mmol/L (3.5-5.1)
[2021-12-22] MEDS: dilTIAZem HCL 125 MG in DEXTROSE 5% 100 ML IV SCH ×2 (09:21→17:11)
[2021-12-22] MEDS: METOPROLOL SUCC 25MG EXT REL TAB PO SCH (09:22)
[2021-12-22] MEDS: PANTOprazole 40 MG in SYRINGE 0 ML IV SCH ×2 (09:22→20:50)
[2021-12-22] MEDS: NICOTINE 7 MG/24 HR TDSY TD SCH (09:23)
[2021-12-22] MEDS: APIXABAN 5 MG TABLET PO SCH ×2 (09:23→20:51)
[2021-12-22] MEDS: THIAMINE HCL 100 MG TAB PO SCH ×2 (09:23→20:52)
[2021-12-22] MEDS: FOLIC ACID 1 MG TAB PO SCH (09:23)
--- NOTE | 2021-12-22 11:45 | Surgery Progress Note ---
Date of Service December 22, 2021 Assessment & Plan (1) Colon cancer: Plan: F/U S/P Robotic Laparoscopic Assisted Lower anterior resection with mobilization of splenic flexure, diverting loop ileostomy, POD 3 pt is stable, tolerated diet, continue treatment repeat labs in morning, will F/U, 12/22/2021 11:45AM, F/U S/P Robotic Laparoscopic Assisted Lower anterior resection with mobilization of splenic flexure, diverting loop ileostomy, POD 4 pt is stable, pulled out ROSALIE, tolerated full liquid diet, continue treatment repeat labs in morning, will F/U, Admission and Anticipated Discharge Date Admission Date: December 18, 2021 Supervising Physician Co-Signing Physician Notes Attending addendum: I have physically seen this patient, have supervised the medical residents activities, and agree with the H&P unless as otherwise noted. Assessment and Plan: Atrial fibrillation with RVR/hypertension Seen postoperatively Most recent left ventricular ejection fraction 45 to 50% on 08/01/2021 Fluid boluses as noted Lopressor 5 mg IV IV x2 Troponin 9463.9 with emergent labs this evening, then 2-hour follow-up decreased 8586.3 Follow troponin serially Hold off on heparin drip at this time, in particular, due to increased risk of bleeding after major awad Continue metoprolol 25 mg p.o. twice daily Optimize potassium to target of 4, and magnesium to target of 2 Consult cardiology Remaining orders and notations as noted Subjective Patient without complaint. Uneventful night, rhythm remains sinus since yesterday. 12/21/2021 12:56PM Dr. Hoffman F/U S/P Robotic Laparoscopic Assisted Lower anterior resection with mobilization of splenic flexure, diverting loop ileostomy, POD 3 pt is stable, no significant abdominal pain, no stool in ileostomy bag, pt tolerated full liquid diet, no fever, ROSALIE 30ml clear color 12/22/2021, 11:42AM Dr. Hoffman F/U S/P Robotic Laparoscopic Assisted Lower anterior resection with mobilization of splenic flexure, diverting loop ileostomy, POD 4 pt is stable, no significant abdominal pain, no stool in ileostomy bag, pt tolerated full liquid diet, no fever, ROSALIE 0 ml Physical Exam Constitutional: WD/WN, vitals as above Eyes: PERRL, conjunctivae normal, anicteric sclerae Neck: trachea midline, no thyromegaly Respiratory: normal respiratory effort, lungs clear to auscultation Cardiovascular: RRR, no murmur, no edema Gastrointestinal (Abdomen): soft, mild tenderness at incision site, no distend, incision intact, ileostomy, edema, no stool in bag, ROSALIE intact, Musculoskeletal: no cyanosis or clubbing, extremities motor strength 5/5 Neurologic: patellar DTR's 2+ bilat, sensation intact Psychiatric: A+Ox3, euthymic affect Results & Data ([facility]) Vital Signs (Past 12 Hours) Vital Signs Temp Pulse Pulse Resp BP BP Pulse Ox 12/22/21 11:40 36.8 C 93 H 24 103/61 90 12/22/21 07:55 37.2 C 88 19 107/56 L 90 12/22/21 03:00 36.9 C 89 17 117/58 L 96 12/21/21 23:49 37.2 C 87 17 111/65 97 O2 Del Method 12/22/21 11:40 Room Air 12/22/21 07:55 Room Air 12/22/21 03:00 Room Air 12/21/21 23:49 Room Air Laboratory Results Abnormal lab results 12/22/21 12/22/21 Range/Units 06:44 06:44 RBC 4.51 L (4.63-6.08) M/uL Hgb 12.8 L (14.0-18.0) g/dl Hct 39.7 L (40.1-51.0) % RDW Std Deviation 54.0 H (36.4-46.3) fL RDW Coeff of Tonya 16.8 H (11.5-14.5) % MPV 9.2 L (9.4-12.4) fL Lymph # (Auto) 0.47 L (1.2-3.4) K/uL [place] # (Auto) 1.09 H (0.24-0.82) K/uL Immature Gran # (Auto) 0.04 H (0.00-0.02) K/uL Sodium 129 L (136-145) mmol/L Chloride 95 L (98-107) mmol/L Glucose 116 H (70-99(Fasting)) mg/dl
--- NOTE | 2021-12-22 12:41 | Cardiology Progress Note ---
Date of Service December 22, 2021 Assessment & Plan (1) Paroxysmal A-fib: (2) CAD (coronary artery disease): (3) NICM (nonischemic cardiomyopathy): (4) Hypertension: Plan Patient is hemodynamically stable and has no cardiac symptoms despite recurrence of atrial fibrillation with initially rapid ventricular response. Would continue his low-dose beta-stone and continue calcium channel stone as well. Switch from IV to oral diltiazem, could use 30 mg p.o. every 6 hours with hold orders for hypotension or bradycardia. Discontinue IV after first oral dose. Continue apixaban for anticoagulation. Would not favor cardioversion at this point given postoperative status, absence of symptoms, and the fact that he could easily have recurrent atrial fibrillation after a cardioversion. Continue with rate control/anticoagulation. BP has been favorable with the addition of calcium channel stone. Admission and Anticipated Discharge Date Admission Date: December 18, 2021 Subjective Feels okay, no chest discomfort, subjective palpitations, or dyspnea at rest. Rhythm reverted to atrial fibrillation with rapid ventricular response midday yesterday, intravenous diltiazem added with good subsequent rate control (currently 80-100 bpm range). Rhythm remains atrial fibrillation. Physical Exam Physical Exam: No distress. Normotensive. Plse 90 bpm and irregular. Skin: no ecchymoses or generalized lesions. HEENT: unremarkable. Neck: no JVD or carotid bruits. Lungs: clear. Cardiac: irregular rhythm, no murmur or gallop. Abdomen: nondistended. Extremities: no edema, pulses intact. Neurologic: normal affect, nonfocal. Results & Data ([facility]) Vital Signs (Past 12 Hours) Vital Signs Temp Pulse Pulse Resp BP BP Pulse Ox 12/22/21 11:40 98.2 F 93 H 24 103/61 90 12/22/21 07:55 99.0 F 88 19 107/56 L 90 12/22/21 03:00 98.4 F 89 17 117/58 L 96 O2 Del Method 12/22/21 11:40 Room Air 12/22/21 07:55 Room Air 12/22/21 03:00 Room Air Laboratory Results Normal electrolytes, BUN 15, creatinine 1.03. PG Care Time/CCT Total # of Minutes Spent Total Time Spent with Patient: Total time spent is greater than 50% in coordination of care (as documented) at patient's floor/unit and/or counseling patient: Coding Level of Care Code 39076 Subseq Hosp Care Lvl 3 Diagnoses Paroxysmal A-fib I48.0 CAD (coronary artery disease) I25.10 NICM (nonischemic cardiomyopathy) I42.8 Hypertension I10
[2021-12-22] MEDS: ASPIRIN 81 MG ECTAB PO SCH (14:53)
[2021-12-22] MEDS: NSS + 20MEQ KCL 20 MEQ/1,000 ML BAG IV SCH (17:10)
--- NOTE | 2021-12-22 18:47 | Hospitalist Progress Note ---
Date of Service December 22, 2021 Assessment & Plan (1) Atrial fibrillation with RVR: Plan: episode occurred evening of 12/19 - spontaneous conversion back to NSR. then returned to rapid a.fib yesterday, 12/21. placed back on cardizem drip. metopolol succinate changed to QAM dosing - he did receive it this am. rates excellent, now <100. remains on Eliquis BID. mag/K wnl. TSH wnl cont to monitor on tele. most recent echo - done as outpatient in [place] - EF 45-50%. (2) Adenocarcinoma of sigmoid colon: Plan: POD #4 s/p Robotic Laparoscopic assisted low anterior resection with mobilization of splenic flexure and end-to-end anastomosis, diverting loop ileostomy by Dr Huff. I discussed his care w/ Dr Hoffman - bowel function has not returned given the N/V, bloating, and poor ostomy output. full liquids stopped; returned to NPO status; IV fluids resumed. defer management to gen surg. (3) Chronic systolic CHF (congestive heart failure): Plan: may have been mildly decompensated in the setting of copious IV hydration, his surgery, rapid a.fib, etc. this past Thursday received lasix 20mg po x 1. Na levels had continued to drop even with IV hydration. BNP elevated at 300. 5+ liters positive since admission. stopped IV fluids Thursday pm. he now looks like he is going the opposite direction with volume contraction. hold aldactone. no other diuretics. cont BB. most recent echo - 07/2021 in [place] - EF 45-50%, grade 1 diastolic dysfunction, no valvular dysfunction. normal LV wall motion. (4) Hyponatremia: Plan: worsened with IV fluids post-op. Na level today 129. urine osm very high, urine Na borderline low. due to NPO status he is being placed back on IV fluids. repeat BMP in am. (5) Hypertension: Plan: BPs satisfactory at this time. Cont BB but hold lisinopril & aldactone. (6) Hyperlipidemia: Plan: statin on hold (7) Alcohol abuse: Plan: no signs of etoh withdrawal at this time cont thiamine 200mg BID AWSS protocol (8) Tobacco use: Plan: nicoderm patch 7mg/day general counsel to quit smoking (9) CAD (coronary artery disease): Plan: 03/2020 - [facility] cardiac cath minimal nonobstructive lesions in LAD and LCx RCA with a 50-60% lesion only appreciate cardiology consultation elevated troponin thought NOT due to acute coronary syndrome but demand ischemia in setting of rapid a.fib has had NO ischemic symptoms during this stay (10) COPD (chronic obstructive pulmonary disease): Plan: without exacerbation at this time albuterol prn (11) Demand ischemia of myocardium: Plan: peak HS troponin 9463 trending down nicely seen by cardiology - felt to represent demand ischemia in setting of rapid a.fib cath 2020 at [facility] as above no obstructive lesions then appreciate cardiology consult & input no ischemic symptoms since admission Plan will cont to follow care d/w Dr Hoffman repeat labs in am I updated the pt's son by phone this evening Admission and Anticipated Discharge Date Admission Date: December 18, 2021 Subjective tele overnight - a.fib rates <100 on diltiazem drip during the visit he stated he had vomited twice earlier in the day continues with nausea, abd pain, bloating ostomy with little output patient taking little by mouth despite being on liquids denies cough or dyspnea 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 Review of Systems Review of Systems: gen - fatigue, weak; poor appetite cv - no orthopnea or chest pain pulm - no dyspnea GI - abd pain, bloating, nausea, emesis, burping; little ostomy output - no voiding difficulties Physical Exam Physical Exam: gen - NAD, burping frequently, looks unwell neck - no JVD mouth - MM slightly dry heart - RRR, s1 s2, no murmur lungs - decreased BS bases; no rales; scant exp wheezes scattered - especially when he coughs; no increased work of breathing abd - distended, BS+ but decreased; incisions clean, ostomy right side of abdomen with tiny amount of serosanguinous looking fluid ext - no edema, pulses 2+ b/l psych - a/o x 3 Results & Data Results & Data ([facility]) Vital Signs (Past 12 Hours) Vital Signs Temp Pulse Resp BP Pulse Ox O2 Del Method 12/22/21 15:41 37.1 C 78 19 121/68 90 Room Air 12/22/21 11:40 36.8 C 93 H 24 103/61 90 Room Air 12/22/21 07:55 37.2 C 88 19 107/56 L 90 Room Air Laboratory Results Laboratory Results - last 24 hr 12/22/21 12/22/21 12/22/21 06:44 06:44 Unknown WBC 8.12 RBC 4.51 L Hgb 12.8 L Hct 39.7 L MCV 88.0 MCH 28.4 MCHC 32.2 RDW Std Deviation 54.0 H RDW Coeff of Tonya 16.8 H Plt Count 320 D MPV 9.2 L Immature Gran % (Auto) 0.5 Neut % (Auto) 79.5 Lymph % (Auto) 5.8 [place] % (Auto) 13.4 Eos % (Auto) 0.6 Baso % (Auto) 0.2 Neut # (Auto) 6.45 Lymph # (Auto) 0.47 L [place] # (Auto) 1.09 H Eos # (Auto) 0.05 Baso # (Auto) 0.02 Immature Gran # (Auto) 0.04 H Sodium 129 L Potassium 4.2 Chloride 95 L Carbon Dioxide 26 Anion Gap 8 BUN 15 Creatinine 1.03 Est Cr Clr Drug Dosing 60.2 Est GFR ( Amer) 78.6 Est GFR (Non-Af Amer) 67.8 BUN/Creatinine Ratio 14.6 Glucose 116 H Calcium 8.8 Urine Osmolality 608 Ur Random Sodium 12/22/21 Unknown WBC RBC Hgb Hct MCV MCH MCHC RDW Std Deviation RDW Coeff of Tonya Plt Count MPV Immature Gran % (Auto) Neut % (Auto) Lymph % (Auto) [place] % (Auto) Eos % (Auto) Baso % (Auto) Neut # (Auto) Lymph # (Auto) [place] # (Auto) Eos # (Auto) Baso # (Auto) Immature Gran # (Auto) Sodium Potassium Chloride Carbon Dioxide Anion Gap BUN Creatinine Est Cr Clr Drug Dosing Est GFR ( Amer) Est GFR (Non-Af Amer) BUN/Creatinine Ratio Glucose Calcium Urine Osmolality Ur Random Sodium 21 PG Care Time/CCT Total # of Minutes Spent Total Time Spent with Patient: Total time spent is greater than 50% in coordination of care (as documented) at patient's floor/unit and/or counseling patient: Coding Level of Care Code 69532 Subseq Hosp Care Lvl 3 Diagnoses Atrial fibrillation with RVR I48.91 Adenocarcinoma of sigmoid colon C18.7 Chronic systolic CHF (congestive heart failure) I50.22 Hyponatremia E87.1 Hypertension I10 Hyperlipidemia E78.5 Alcohol abuse F10.10 Tobacco use Z72.0 CAD (coronary artery disease) I25.10 COPD (chronic obstructive pulmonary disease) J44.9 Demand ischemia of myocardium I24.8
--- NOTE | 2021-12-22 22:41 | Communication Note ---
Date of Service: December 22, 2021 notified of recent conversion from afib to sinus zohra 50s. will hold dilt drip and follow HR closely; will provide PO dilt if HR >60 at a later time. He did receive 25mg PO metoprolol succinate home regimen this morning. 3AM: maintaining >60s. HR 67. Did have brief run >100 sinus tach earlier. Starting PO dilt 30mg q6h w/ hold parameters (hold if HR <60).
[2021-12-23] MEDS: NSS + 20MEQ KCL 20 MEQ/1,000 ML BAG IV SCH ×3 (02:10→21:18)
[2021-12-23] MEDS: dilTIAZem HCL 30 MG TAB PO SCH ×4 (03:27→18:04)
[2021-12-23 06:40] LABS: Basophils # (auto) 0.01 K/uL (0-0.2); Basophils % (auto) 0.1 %; Eosinophils # (auto) 0.01 K/uL (0-0.50); Eosinophils % (auto) 0.1 %; Hematocrit (blood only) 36.6 % (40.1-51.0); Immature Granulocytes # (auto) 0.05 K/uL (0.00-0.02); Immature Granulocytes % (auto) 0.7 %; Lymphocytes # (auto) 0.43 K/uL (1.2-3.4); Lymphocytes % (auto) 6.2 %; Mean Corpuscular Hemoglobin 28.6 pg (25.0-34.0); Mean Corpuscular Hgb Conc 32.8 g/dL (32.0-36.0); Mean Corpuscular Volume 87.1 fL (80.0-100.0); Mean Platelet Volume 9.3 fL (9.4-12.4); Monocytes # (auto) 0.94 K/uL (0.24-0.82); Monocytes % (auto) 13.5 %; Neutrophils # (auto) 5.54 K/uL (1.4-6.5); Neutrophils % (auto) 79.4 %; Platelet Count 321 K/uL (130-400); RDW Coefficient of Variation 16.9 % (11.5-14.5); RDW Standard Deviation 53.5 fL (36.4-46.3); White Blood Count 6.98 K/ul (4.8-10.8)
[2021-12-23 07:13] LABS: BUN Creatinine Ratio 20.7 (10-20); Calcium 8.4 mg/dl (8.5-10.1); Creatinine Clr Calc Pharmacy 69.1 ml/min; Est GFR (African American) 90.1 ml/min; Est GFR (Non-African American) 77.7 ml/min; Magnesium 1.8 mg/dl (1.7-2.4); Potassium 4.5 mmol/L (3.5-5.1)
[2021-12-23] MEDS: METOPROLOL SUCC 25MG EXT REL TAB PO SCH (09:05)
[2021-12-23] MEDS: FOLIC ACID 1 MG TAB PO SCH (09:05)
[2021-12-23] MEDS: APIXABAN 5 MG TABLET PO SCH ×2 (09:06→21:18)
[2021-12-23] MEDS: THIAMINE HCL 100 MG TAB PO SCH ×2 (09:07→21:17)
[2021-12-23] MEDS: NICOTINE 7 MG/24 HR TDSY TD SCH (09:07)
--- NOTE | 2021-12-23 09:26 | Surgery Progress Note ---
Date of Service December 23, 2021 Assessment & Plan (1) Colon cancer: Plan: POD#5 robotic assisted LAR with diverting ileostomy - WBC 6.9, Hbg 12. VSS, HRs improved this AM (been dealing with on/off afib) - Events noted over the wknd, pt developed some nausea/vomiting yesterday and was backed down to NPO - Ileostomy with scant serous drainage, abdomen mildly distended, continues with some mild nausea -Awaiting return of bowel function, if ongoing nausea and develops vomiting may check KUB and possible needs for NGT - Pt needs to get out of bed and ambulate - Can probably d/c EDUCATIONAL DIRECTOR and do IV pain meds prn - Appreciate hospitalists and cardiology assistance with pt Admission and Anticipated Discharge Date Admission Date: December 18, 2021 Supervising Physician Co-Signing Physician Notes Patient seen and examined, labs and imaging reviewed, agree with above. 81-year-old male POD #5 robotic assisted low anterior resection with colorectal anastomosis and diverting loop ileostomy. Overall doing well. Over the weekend he had another episode of A. fib with RVR and was transferred to the medical ICU and this is resolved with diltiazem drip. He did have some nausea yesterday. He feels bloated but does not have any nausea today. On exam he is afebrile with stable vitals. His abdomen is soft, distended, nontender. Incision with cedrick without evidence of infection. Ileostomy with resolving edema, only sweat in the bag. Labs reviewed and unremarkable. He may have clear liquids though advised him to take it slow as we are awaiting return of bowel function. We did review his pathology results which showed negative margins and a T1 tumor with no lymph node involvement. Ambulation, out of bed to chair. Appreciate medicine and cardiology assistance with this patient. Subjective Patient says he is feeling okay this AM. Reports last emesis was yesterday evening. Has some mild nausea this AM, but is feeling a bit better. Abdominal pain manageable. Has not been out of bed much Physical Exam Physical Exam: awake Gastrointestinal (Abdomen): Inspection/Auscultation: + abdomen distended and + abdominal surgical incision (c/d/i) Percussion/Palpation: + abdomen tender (mild discomfort generalized abdomen) and abdomen soft Results & Data ([facility]) Vital Signs (Past 12 Hours) Vital Signs Temp Pulse Pulse Resp BP Pulse Ox O2 Del Method 12/23/21 07:58 37.3 C 80 18 141/71 H 90 Room Air, Other 12/23/21 07:28 37.0 C 73 21 137/72 90 Room Air 12/22/21 22:17 58 L 12/23/21 02:56 37.2 C 70 20 131/72 91 Room Air 12/22/21 22:53 37.3 C 59 L 20 112/73 95 Room Air PG Care Time/CCT Total # of Minutes Spent Total Time Spent with Patient: Total time spent is greater than 50% in coordination of care (as documented) at patient's floor/unit and/or counseling patient: Coding Level of Care Code None Diagnoses Colon cancer C18.9
[2021-12-23] MEDS ORDERED: MoRPHine SULFATE 4 MG/ML 1 ML CARP\\VIAL IV PRN (09:28)
[2021-12-23] MEDS ORDERED: ACETAMINOPHEN 1,000 MG/100 ML VIAL IV PRN (09:28)
[2021-12-23] MEDS: ONDANSETRON INJ 2 MG/ML 2 ML VIAL IV PRN (10:37)
[2021-12-23] MEDS: PANTOprazole 40 MG in SYRINGE 0 ML IV SCH ×2 (10:37→21:18)
[2021-12-23] MEDS: dilTIAZem HCL 125 MG in DEXTROSE 5% 100 ML IV SCH (11:55)
[2021-12-23] MEDS: ASPIRIN 81 MG ECTAB PO SCH (16:43)
[2021-12-23] MEDS: SODIUM CHLORIDE 0.9% 1000ML 1,000 ML IV SCH (21:13)
--- NOTE | 2021-12-23 22:01 | Hospitalist Progress Note ---
Date of Service December 23, 2021 Assessment & Plan (1) Atrial fibrillation with RVR: Plan: episode occurred evening of 12/19 - spontaneous conversion back to NSR. then returned to rapid a.fib on 12/21. placed back on cardizem drip then. 12/22/21 PM - spontaneous conversion back to NSR; dilt drip stopped. now on cardizem 30mg q6h + metopolol succinate QAM remains on Eliquis BID mag/K wnl. TSH wnl cont to monitor on tele. most recent echo - done as outpatient in [place] - EF 45-50%. (2) Adenocarcinoma of sigmoid colon: Plan: POD #5 s/p Robotic Laparoscopic assisted low anterior resection with mobilization of splenic flexure and end-to-end anastomosis, diverting loop ileostomy by Dr Huff. remains NPO status cont IV fluids await return to bowel function defer management to gen surg (3) Chronic systolic CHF (congestive heart failure): Plan: may have been mildly decompensated in the setting of copious IV hydration, his surgery, rapid a.fib, etc. this past Thursday received lasix 20mg po x 1. Na levels had continued to drop even with IV hydration. BNP elevated at 300. 5+ liters positive since admission. stopped IV fluids Thursday pm. 12/22 - was having significant GI intolerance - returned to NPO status and IV fluids resumed. diuretics on hold. cont BB. cont CCB for a.fib most recent echo - 07/2021 in [place] - EF 45-50%, grade 1 diastolic dysfunction, no valvular dysfunction. normal LV wall motion. (4) Hyponatremia: Plan: worsened with IV fluids post-op. Na level bottomed at 129. 131 today. urine osm very high, urine Na borderline low. serum osm low. resumed isotonic fluids. bmp am. (5) Hypertension: Plan: BPs satisfactory at this time. Cont BB but hold lisinopril & aldactone. 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 (9) CAD (coronary artery disease): Plan: 03/2020 - [facility] cardiac cath minimal nonobstructive lesions in LAD and LCx RCA with a 50-60% lesion only appreciate cardiology consultation elevated troponin (peak was 9460) thought NOT due to acute coronary syndrome but demand ischemia in setting of rapid a.fib has had NO ischemic symptoms during this stay (10) COPD (chronic obstructive pulmonary disease): Plan: without exacerbation at this time albuterol prn (11) Demand ischemia of myocardium: Plan: peak HS troponin 9463 trending down nicely seen by cardiology - felt to represent demand ischemia in setting of rapid a.fib cath 2020 at [facility] as above no obstructive lesions then appreciate cardiology consult & input no ischemic symptoms since admission Plan will cont to follow I updated the pt's son by phone 12/22/21 Admission and Anticipated Discharge Date Admission Date: December 18, 2021 Subjective patient resting in bed comfortably during the visit no new complaints abd pain is similar to yesterday had minimal nausea today but no emesis oob to chair at least 1x minimal ostomy output bloating is similar converted to NSR overnight from a.fib rates are controlled; dilt drip placed on hold Review of Systems Review of Systems: gen - no fevers cv - no chest pain; no orthopnea pulm - some cough, no dyspnea however GI - see HPI - voiding ok Physical Exam Physical Exam: gen - NAD, looks better today neck - no JVD mouth - MMM heart - RRR, s1 s2, no murmur lungs - decreased BS bases; no rales; scant exp wheezes scattered; no increased work of breathing abd - distended - similar to yesterday, BS+ but decreased; incisions clean, ostomy right side of abdomen with tiny amount of serosanguinous looking fluid ext - no edema, pulses 2+ b/l psych - a/o x 3 Results & Data Results & Data ([facility]) Vital Signs (Past 12 Hours) Vital Signs Temp Pulse Pulse Resp BP BP Pulse Ox 12/23/21 19:10 37.4 C 69 20 135/79 90 12/23/21 15:18 37.2 C 74 21 135/77 92 12/23/21 10:16 82 12/23/21 11:00 37.1 C 88 21 140/78 94 O2 Del Method 12/23/21 19:10 Room Air 12/23/21 15:18 Room Air 12/23/21 10:16 12/23/21 11:00 Room Air Laboratory Results Laboratory Results - last 24 hr 12/23/21 12/23/21 06:14 06:14 WBC 6.98 RBC 4.20 L Hgb 12.0 L Hct 36.6 L MCV 87.1 MCH 28.6 MCHC 32.8 RDW Std Deviation 53.5 H RDW Coeff of Tonya 16.9 H Plt Count 321 MPV 9.3 L Immature Gran % (Auto) 0.7 Neut % (Auto) 79.4 Lymph % (Auto) 6.2 [place] % (Auto) 13.5 Eos % (Auto) 0.1 Baso % (Auto) 0.1 Neut # (Auto) 5.54 Lymph # (Auto) 0.43 L [place] # (Auto) 0.94 H Eos # (Auto) 0.01 Baso # (Auto) 0.01 Immature Gran # (Auto) 0.05 H Sodium 131 L Potassium 4.5 Chloride 98 Carbon Dioxide 26 Anion Gap 7 BUN 19 Creatinine 0.92 Est Cr Clr Drug Dosing 69.1 Est GFR ( Amer) 90.1 Est GFR (Non-Af Amer) 77.7 BUN/Creatinine Ratio 20.7 H Glucose 101 H Calcium 8.4 L Magnesium 1.8 PG Care Time/CCT Total # of Minutes Spent Total Time Spent with Patient: Total time spent is greater than 50% in coordination of care (as documented) at patient's floor/unit and/or counseling patient: Coding Level of Care Code 73014 Subseq Hosp Care Lvl 2 Diagnoses Atrial fibrillation with RVR I48.91 Adenocarcinoma of sigmoid colon C18.7 Chronic systolic CHF (congestive heart failure) I50.22 Hyponatremia E87.1 Hypertension I10 Hyperlipidemia E78.5 Alcohol abuse F10.10 Tobacco use Z72.0 CAD (coronary artery disease) I25.10 COPD (chronic obstructive pulmonary disease) J44.9 Demand ischemia of myocardium I24.8
[2021-12-23] MEDS: MoRPHine SULFATE 2 MG/ML CARP IV PRN (23:31)
[2021-12-24] MEDS: dilTIAZem HCL 30 MG TAB PO SCH ×4 (00:08→17:23)
[2021-12-24] MEDS: ONDANSETRON INJ 2 MG/ML 2 ML VIAL IV PRN (05:44)
[2021-12-24] MEDS: MoRPHine SULFATE 2 MG/ML CARP IV PRN (05:45)
[2021-12-24 06:52] LABS: Basophils # (auto) 0.02 K/uL (0-0.2); Basophils % (auto) 0.3 %; Eosinophils # (auto) 0.02 K/uL (0-0.50); Eosinophils % (auto) 0.3 %; Hematocrit (blood only) 37.1 % (40.1-51.0); Hemoglobin 11.9 g/dl (14.0-18.0); Immature Granulocytes # (auto) 0.08 K/uL (0.00-0.02); Lymphocytes # (auto) 0.42 K/uL (1.2-3.4); Lymphocytes % (auto) 5.5 %; Mean Corpuscular Hemoglobin 28.1 pg (25.0-34.0); Mean Corpuscular Hgb Conc 32.1 g/dL (32.0-36.0); Mean Corpuscular Volume 87.7 fL (80.0-100.0); Mean Platelet Volume 9.2 fL (9.4-12.4); Monocytes % (auto) 14.3 %; Neutrophils # (auto) 6.06 K/uL (1.4-6.5); Neutrophils % (auto) 78.6 %; Platelet Count 370 K/uL (130-400); RDW Coefficient of Variation 16.8 % (11.5-14.5); RDW Standard Deviation 53.7 fL (36.4-46.3); Red Blood Count 4.23 M/uL (4.63-6.08)
[2021-12-24 07:17] LABS: BUN Creatinine Ratio 26.9 (10-20); Calcium 8.6 mg/dl (8.5-10.1); Creatinine Clr Calc Pharmacy 81.5 ml/min; Est GFR (African American) 98.1 ml/min; Est GFR (Non-African American) 84.7 ml/min; Potassium 4.3 mmol/L (3.5-5.1)
[2021-12-24] MEDS: SODIUM CHLORIDE 0.9% 1000ML 1,000 ML IV SCH (07:52)
[2021-12-24] MEDS: dilTIAZem HCL 125 MG in DEXTROSE 5% 100 ML IV SCH (07:52)
[2021-12-24] MEDS: NSS + 20MEQ KCL 20 MEQ/1,000 ML BAG IV SCH ×2 (07:55→17:23)
--- NOTE | 2021-12-24 08:04 | Surgery Progress Note ---
Date of Service December 24, 2021 Assessment & Plan (1) Colon cancer: Plan: POD#6 robotic assisted LAR with diverting ileostomy - WBC 7.7, Hbg 11.9. VSS - Pt with bout of emesis overnight. Abdomen distended. Ileostomy with scant serous drainage - Will obtain KUB this AM for further evaluation. may consider NGT - Continue to awaiting return of bowel function - Encourage ongoing ambulation - Appreciate hospitalists and cardiology assistance with pt Admission and Anticipated Discharge Date Admission Date: December 18, 2021 Supervising Physician Co-Signing Physician Notes Patient seen and examined, labs and imaging reviewed, agree with above. 81-year-old male POD #6 robotic assisted low anterior resection with colorectal anastomosis and diverting loop ileostomy. Overall doing well. Nausea and vomiting, KUB ordered and NG placed. On exam he is afebrile with stable vitals. His abdomen is soft, distended, nontender. Incision with cedrick without evidence of infection. Ileostomy with resolving edema, only sweat in the bag. Digitized, patent below fascia though a little tight. KUB with dilated loops of bowel. Labs reviewed and unremarkable. Continue NG tube to LIWS as we are awaiting return of bowel function. Ambulation, out of bed to chair. Appreciate medicine and cardiology assistance with this patient. If continued delay in return of bowel function, we will consider cross sectional imaging, as well as PICC. Subjective Patient feeling okay. Reports a bout of emesis overnight, but denies nausea this morning. Feels bloated. Abdominal pain manageable. Reports feeling a bit better than yesterday. Physical Exam Physical Exam: awake/alert, no distress. hiccups Respiratory: normal respiratory effort Gastrointestinal (Abdomen): Inspection/Auscultation: + abdomen distended and + abdominal surgical incision (c/d/i) Percussion/Palpation: + abdomen tender (mild generalized discomfort to palpation) + ostomy viable, scant serous drainage in bag Results & Data ([facility]) Vital Signs (Past 12 Hours) Vital Signs Temp Pulse Pulse Pulse Resp BP Pulse Ox 12/24/21 07:44 64 12/24/21 07:43 36.8 C 81 18 139/80 92 12/24/21 03:06 36.8 C 84 18 150/91 H 90 12/23/21 20:00 12/23/21 23:25 36.7 C 73 16 148/83 H 92 12/23/21 22:57 36.9 C 69 18 146/83 H 90 O2 Del Method 12/24/21 07:44 12/24/21 07:43 Room Air 12/24/21 03:06 12/23/21 20:00 Room Air 12/23/21 23:25 Room Air 12/23/21 22:57 Room Air PG Care Time/CCT Total # of Minutes Spent Total Time Spent with Patient: Total time spent is greater than 50% in coordination of care (as documented) at patient's floor/unit and/or counseling patient: Coding Level of Care Code None Diagnoses Colon cancer C18.9
[2021-12-24] MEDS ORDERED: PROMETHAZINE HCL 12.5 MG in SODIUM CHLORIDE 0.9% 50 ML IV STA (08:19)
--- NOTE | 2021-12-24 09:17 | XRay Report ---
XR KUB/Abdomen 1 view CLINICAL HISTORY: s/p LAR, nausea/vom TECHNIQUE: 1 view of the abdomen was obtained. Comparison: Comparison is made to abdomen radiograph 12/18/2021 FINDINGS: Postsurgical changes are seen in the midline of the pelvis in this patient with history of bowel rese ction. Degenerative changes are seen in the visualized skeleton. Numerous gas-distended loops of smal l bowel are seen measuring up to 51 mm A moderate amount of stool is noted within the large bowel. IMPRESSION: Interval enlargement of gas distended loops of small bowel concerning for worsening ileus/obstruction . ACT 112: Negative or not required by law. Electronically signed by: Santino Bocanegra M.D. 12/24/2021 9:16 AM
--- NOTE | 2021-12-24 10:25 | XRay Report ---
SINGLE VIEW CHEST CLINICAL HISTORY: Enteric tube placement. FINDINGS: An AP, portable, upright chest radiograph is compared to study dated 12/20/2021 and correla harshil with chest CT dated 12/10/2021. An enteric tube has been placed. The tip projects below the diaphr agm of the stomach. The heart is enlarged noting atherosclerotic calcification of the thoracic aorta. The pulmonary vasculature is noncongested. Emphysema and chronic interstitial thickening is similar to previous. There is elevation of the right hemidiaphragm with right basilar atelectasis and a small right pleural effusion. Basilar atelectasis is also seen on the left. No pneumothorax is seen. The s keletal structures are osteopenic. The bony thorax is grossly intact. IMPRESSION: 1. An enteric tube has been placed as above. 2. Small right pleural effusion. 3. Cardiomegaly and emphysema. ACT 112: Negative or not required by law. Electronically signed by: Manuel Rene M.D. 12/24/2021 10:24 AM
[2021-12-24] MEDS: METOPROLOL SUCC 25MG EXT REL TAB PO SCH (11:13)
[2021-12-24] MEDS: APIXABAN 5 MG TABLET PO SCH ×2 (11:13→20:02)
[2021-12-24] MEDS: FOLIC ACID 1 MG TAB PO SCH (11:13)
[2021-12-24] MEDS: NICOTINE 7 MG/24 HR TDSY TD SCH (11:14)
[2021-12-24] MEDS: THIAMINE HCL 100 MG TAB PO SCH (11:15)
[2021-12-24] MEDS: PANTOprazole 40 MG in SYRINGE 0 ML IV SCH ×2 (11:15→20:03)
[2021-12-24] MEDS: ASPIRIN 81 MG ECTAB PO SCH (15:40)
--- NOTE | 2021-12-24 19:32 | Hospitalist Progress Note ---
Date of Service December 24, 2021 Assessment & Plan (1) Atrial fibrillation with RVR: Plan: episode occurred evening of 12/19 - spontaneous conversion back to NSR. then returned to rapid a.fib on 12/21. placed back on cardizem drip then. 12/22/21 PM - spontaneous conversion back to NSR; dilt drip stopped. now on cardizem 30mg q6h + metopolol succinate QAM. eliquis 5mg BID. due to NPO status and NG tube hold metoprolol succinate, place on lopressor IV 2.5mg q6h. can hold cardizem. cont eliquis. mag/K wnl. TSH wnl cont to monitor on tele. most recent echo - done as outpatient in [place] - EF 45-50%. (2) Adenocarcinoma of sigmoid colon: Plan: POD #6 s/p Robotic Laparoscopic assisted low anterior resection with mobilization of splenic flexure and end-to-end anastomosis, diverting loop ileostomy by Dr Huff. remains NPO status NG tube in place for ileus cont IV fluids await return to bowel function defer management to gen surg (3) Chronic systolic CHF (congestive heart failure): Plan: may have been mildly decompensated in the setting of copious IV hydration, his surgery, rapid a.fib, etc. this past Thursday received lasix 20mg po x 1. Na levels had continued to drop even with IV hydration. BNP had been elevated at 300. 5+ liters positive since admission. stopped IV fluids Thursday pm. 12/22 - was having significant GI intolerance - returned to NPO status and IV fluids resumed. diuretics on hold. cont BB. most recent echo - 07/2021 in [place] - EF 45-50%, grade 1 diastolic dysfunction, no valvular dysfunction. normal LV wall motion. (4) Hyponatremia: Plan: worsened with IV fluids post-op. Na level bottomed at 129. 134 today. urine osm very high, urine Na borderline low. serum osm low. resumed isotonic fluids. bmp am. (5) Hypertension: Plan: BPs satisfactory at this time. Cont BB but hold lisinopril & aldactone. 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 (9) CAD (coronary artery disease): Plan: 03/2020 - [facility] cardiac cath minimal nonobstructive lesions in LAD and LCx RCA with a 50-60% lesion only appreciate cardiology consultation elevated troponin (peak was 9460) thought NOT due to acute coronary syndrome but demand ischemia in setting of rapid a.fib has had NO ischemic symptoms during this stay (10) COPD (chronic obstructive pulmonary disease): Plan: without exacerbation at this time albuterol prn (11) Demand ischemia of myocardium: Plan: peak HS troponin 9463 trending down nicely seen by cardiology - felt to represent demand ischemia in setting of rapid a.fib cath 2020 at [facility] as above no obstructive lesions then appreciate cardiology consult & input no ischemic symptoms since admission Plan will cont to follow I updated the pt's son by phone 12/22/21 and 12/24/21 Admission and Anticipated Discharge Date Admission Date: December 18, 2021 Subjective tele overnight mainly with NSR; brief run of a.fib only this am gen surg performed KUB which showed distended loops of small bowel thus, NG tube placed this am has had copious bilious drainage since then patient feels better since NG tube insertion nausea now resolved still bloated, however, and minimal output via ostomy patient walked the hallways today and was OOB denies dyspnea Review of Systems Review of Systems: gen - no fevers cv - no chest pain, no orthopnea pulm - no GIMENEZ GI - mild abdominal pain Physical Exam Physical Exam: gen - NAD, looks better today, looks more comfortable today nose - NG tube in place draining bilious fluid neck - no JVD mouth - MMM, no lesions heart - RRR, s1 s2, no murmur lungs - airation improved b/l bases; no rales; scant exp wheezes scattered; no increased work of breathing abd - distended - similar to yesterday, maybe slightly improved, BS+ but decreased; incisions clean, ostomy right side of abdomen with small amount of fluid ext - no edema, pulses 2+ b/l psych - a/o x 3 Results & Data Results & Data ([facility]) Vital Signs (Past 12 Hours) Vital Signs Temp Pulse Pulse Pulse Resp BP BP 12/24/21 18:57 36.7 C 62 19 141/72 H 10/18/22 17:22 134/72 12/24/21 15:58 73 12/24/21 15:15 36.5 C 67 19 129/74 12/24/21 12:05 12/24/21 11:00 36.7 C 71 19 147/85 H 12/24/21 07:44 64 12/24/21 07:43 36.8 C 81 18 139/80 Pulse Ox O2 Del Method 12/24/21 18:57 93 Room Air 12/24/21 17:22 12/24/21 15:58 12/24/21 15:15 93 Room Air 12/24/21 12:05 Room Air 12/24/21 11:00 94 Room Air 12/24/21 07:44 12/24/21 07:43 92 Room Air Laboratory Results Laboratory Results - last 24 hr 12/24/21 12/24/21 05:55 05:55 WBC 7.70 RBC 4.23 L Hgb 11.9 L Hct 37.1 L MCV 87.7 MCH 28.1 MCHC 32.1 RDW Std Deviation 53.7 H RDW Coeff of Tonya 16.8 H Plt Count 370 MPV 9.2 L Immature Gran % (Auto) 1.0 Neut % (Auto) 78.6 Lymph % (Auto) 5.5 [place] % (Auto) 14.3 Eos % (Auto) 0.3 Baso % (Auto) 0.3 Neut # (Auto) 6.06 Lymph # (Auto) 0.42 L [place] # (Auto) 1.10 H Eos # (Auto) 0.02 Baso # (Auto) 0.02 Immature Gran # (Auto) 0.08 H Sodium 134 L Potassium 4.3 Chloride 100 Carbon Dioxide 25 Anion Gap 9 BUN 21 Creatinine 0.78 Est Cr Clr Drug Dosing 81.5 Est GFR ( Amer) 98.1 Est GFR (Non-Af Amer) 84.7 BUN/Creatinine Ratio 26.9 H Glucose 96 Calcium 8.6 PG Care Time/CCT Total # of Minutes Spent Total Time Spent with Patient: Total time spent is greater than 50% in coordination of care (as documented) at patient's floor/unit and/or counseling patient: Coding Level of Care Code 14849 Subseq Hosp Care Lvl 2 Diagnoses Atrial fibrillation with RVR I48.91 Adenocarcinoma of sigmoid colon C18.7 Chronic systolic CHF (congestive heart failure) I50.22 Hyponatremia E87.1 Hypertension I10 Hyperlipidemia E78.5 Alcohol abuse F10.10 Tobacco use Z72.0 CAD (coronary artery disease) I25.10 COPD (chronic obstructive pulmonary disease) J44.9 Demand ischemia of myocardium I24.8
[2021-12-25] MEDS: NSS + 20MEQ KCL 20 MEQ/1,000 ML BAG IV SCH ×3 (04:04→21:13)
[2021-12-25 07:10] LABS: Basophils # (auto) 0.03 K/uL (0-0.2); Basophils % (auto) 0.4 %; Eosinophils # (auto) 0.25 K/uL (0-0.50); Eosinophils % (auto) 3.7 %; Hemoglobin 12.6 g/dl (14.0-18.0); Immature Granulocytes # (auto) 0.09 K/uL (0.00-0.02); Immature Granulocytes % (auto) 1.3 %; Lymphocytes # (auto) 0.61 K/uL (1.2-3.4); Lymphocytes % (auto) 9.1 %; Mean Corpuscular Hemoglobin 28.7 pg (25.0-34.0); Mean Corpuscular Hgb Conc 32.3 g/dL (32.0-36.0); Mean Corpuscular Volume 88.8 fL (80.0-100.0); Mean Platelet Volume 8.7 fL (9.4-12.4); Monocytes # (auto) 0.91 K/uL (0.24-0.82); Monocytes % (auto) 13.5 %; Neutrophils # (auto) 4.85 K/uL (1.4-6.5); Platelet Count 323 K/uL (130-400); RDW Coefficient of Variation 16.7 % (11.5-14.5); RDW Standard Deviation 54.5 fL (36.4-46.3); Red Blood Count 4.39 M/uL (4.63-6.08); White Blood Count 6.74 K/ul (4.8-10.8)
[2021-12-25 07:38] LABS: BUN Creatinine Ratio 23.2 (10-20); Calcium 8.3 mg/dl (8.5-10.1); Creatinine Clr Calc Pharmacy 77.5 ml/min; Est GFR (African American) 96.1 ml/min; Est GFR (Non-African American) 82.9 ml/min; Magnesium 1.9 mg/dl (1.7-2.4); Potassium 4.3 mmol/L (3.5-5.1)
[2021-12-25] MEDS: NICOTINE 7 MG/24 HR TDSY TD SCH (07:57)
--- NOTE | 2021-12-25 08:10 | Hospitalist Progress Note ---
Date of Service December 25, 2021 Assessment & Plan (1) Atrial fibrillation with RVR: Plan: episode occurred evening of 12/19 - spontaneous conversion back to NSR. then returned to rapid a.fib on 12/21. placed back on cardizem drip then. 12/22/21 PM - spontaneous conversion back to NSR; dilt drip stopped. Patient taking p.o. escalating doses of metoprolol, continue IV doses of metoprolol [address] changed to p.o. once discontinued eliquis 5mg BID. mag/K wnl. TSH wnl cont to monitor on tele. most recent echo - done as outpatient in [place] - EF 45-50%. (2) Adenocarcinoma of sigmoid colon: Plan: s/p 12/28/21 Robotic Laparoscopic assisted low anterior resection with mobilization of splenic flexure and end-to-end anastomosis, diverting loop ileostomy by Dr Huff. remains NPO status NG tube in place for ileus cont IV fluids await return to bowel function defer management to gen surg (3) Chronic systolic CHF (congestive heart failure): Plan: may have been mildly decompensated in the setting of IV hydration, his surgery, rapid a.fib, etc. this past Thursday received lasix 20mg po x 1. Na levels had continued to drop even with IV hydration. BNP had been elevated at 300. 5+ liters positive since admission. stopped IV fluids 12/20. Diuretics currently on hold cont BB. most recent echo - 07/2021 in [place] - EF 45-50%, grade 1 diastolic dysfunction, no valvular dysfunction. normal LV wall motion. (4) Hyponatremia: Plan: worsened with IV fluids post-op. lowest Na 129. improved but caution as still requiring ivf (5) Hypertension: Plan: BPs satisfactory at this time. Cont BB but hold lisinopril & aldactone. 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 (9) CAD (coronary artery disease): Plan: 03/2020 - [facility] cardiac cath minimal nonobstructive lesions in LAD and LCx RCA with a 50-60% lesion only appreciate cardiology consultation elevated troponin (peak was 9460) thought NOT due to acute coronary syndrome but demand ischemia in setting of rapid a.fib has had NO ischemic symptoms during this stay (10) COPD (chronic obstructive pulmonary disease): Plan: without exacerbation at this time albuterol prn (11) Demand ischemia of myocardium: Plan: peak HS troponin 9463 trending down nicely seen by cardiology - felt to represent demand ischemia in setting of rapid a.fib cath 2020 at [facility] as above no obstructive lesions then appreciate cardiology consult & input no ischemic symptoms since admission Plan will cont to follow Admission and Anticipated Discharge Date Admission Date: December 18, 2021 Subjective pt seems depressed and despondent, he is now tolerating some po intake, ngt remains, ostomy has output Review of Systems Review of Systems: Mild distress and fatigue no headache, no visual changes no speech or swallowing issues no chest pain, pressure or palpitations no shortness of breath, cough or wheezes Patient is bothered by NG tube has mild abdominal pain no dysuria, hematuria or frequency no focal joint pain or swelling no back pain, CVA tenderness or radicular pain no bruising, bleeding or rashes no focal signs of weakness or numbness or altered sensation no complaints of anxiety or depression.. Physical Exam Physical Exam: The patient appeared stable Vital signs as documented. Lungs are clear to auscultation and appear unlabored Cardiac exam, Rhythm is regular.. No murmurs, rubs or gallops. Abdominal exam reveals normal bowel sounds, soft Extremities are nonedematous and both pedal pulses are normal. Neurologic exam is alert and oriented, no focal loss of strength or sensation Skin is without bruises or rashes Psychologically is with concerns for depression. Results & Data Results & Data ([facility]) Vital Signs (Past 12 Hours) Vital Signs Temp Pulse Pulse Pulse Resp BP BP 12/25/21 07:45 69 12/25/21 07:39 98.2 F 68 16 150/79 H 12/25/21 03:19 98.2 F 67 16 152/77 H 12/24/21 22:43 98.4 F 64 18 135/75 12/24/21 21:10 Pulse Ox O2 Del Method 12/25/21 07:45 12/25/21 07:39 93 Room Air 12/25/21 03:19 94 Room Air 12/24/21 22:43 93 Room Air 12/24/21 21:10 Room Air PG Care Time/CCT Total # of Minutes Spent Total Time Spent with Patient: Total time spent is greater than 50% in coordination of care (as documented) at patient's floor/unit and/or counseling patient: Coding Level of Care Code 07755 Subseq Hosp Care Lvl 2 Diagnoses Atrial fibrillation with RVR I48.91 Adenocarcinoma of sigmoid colon C18.7 Chronic systolic CHF (congestive heart failure) I50.22 Hyponatremia E87.1 Hypertension I10 Hyperlipidemia E78.5 Alcohol abuse F10.10 Tobacco use Z72.0 CAD (coronary artery disease) I25.10 COPD (chronic obstructive pulmonary disease) J44.9 Demand ischemia of myocardium I24.8
--- NOTE | 2021-12-25 08:26 | Surgery Progress Note ---
Date of Service December 25, 2021 Assessment & Plan (1) Colon cancer: Plan: POD#6 robotic assisted LAR with diverting ileostomy - WBC 6, Hbg 12.6 - bowel function returning, clamp trial Admission and Anticipated Discharge Date Admission Date: December 18, 2021 Supervising Physician Co-Signing Physician Notes Patient seen and examined, labs and imaging reviewed, agree with above. 81-year-old male POD #7 robotic assisted low anterior resection with colorectal anastomosis and diverting loop ileostomy. Overall doing well. NG tube placed yesterday, this amount of output overnight though his ileostomy appears to have started working. He has had the tube clamped for the past hour or 2 and was not having increased pain or distention or nausea. On exam he is afebrile stable vitals. Abdomen is soft, nontender, less distended than yesterday. Ileostomy pink patent and productive of succus. Incision without evidence of infection or hernia. Labs unremarkable. We will continue NG tube clamp trial, if doing well with low residuals may remove and start on clear liquids. Anticipate discharge once tolerating low fiber diet and cleared by medicine. Subjective minimal pain, not bloated Physical Exam Gastrointestinal (Abdomen): Inspection/Auscultation: + abdomen distended (minimal) Percussion/Palpation: abdomen soft NGT 350 overnight Ostomy bag full liquid brown Results & Data ([facility]) Vital Signs (Past 12 Hours) Vital Signs Temp Pulse Pulse Pulse Resp BP BP 12/25/21 07:45 69 12/25/21 07:39 36.8 C 68 16 150/79 H 12/25/21 03:19 36.8 C 67 16 152/77 H 12/24/21 22:43 36.9 C 64 18 135/75 12/24/21 21:10 Pulse Ox O2 Del Method 12/25/21 07:45 12/25/21 07:39 93 Room Air 12/25/21 03:19 94 Room Air 12/24/21 22:43 93 Room Air 12/24/21 21:10 Room Air PG Care Time/CCT Total # of Minutes Spent Total Time Spent with Patient: Total time spent is greater than 50% in coordination of care (as documented) at patient's floor/unit and/or counseling patient: Coding Level of Care Code None Diagnoses Colon cancer C18.9
--- NOTE | 2021-12-25 09:43 | Cardiology Progress Note ---
Date of Service December 25, 2021 Assessment & Plan (1) Paroxysmal A-fib: Plan: -known since March 2020. -continue Eliquis. -metoprolol succinate on hold, IV metoprolol tartrate available q.6 hour. (2) CAD (coronary artery disease): Plan: -nonobstructive disease at cath, March 2020. -continue medical management. (3) NICM (nonischemic cardiomyopathy): Plan: -LVEF of 45% on echocardiogram, July 2021 -metoprolol succinate and spironolactone on hold. -lisinopril currently on hold. (4) Hypertension: Plan: -borderline control on current medications. Admission and Anticipated Discharge Date Admission Date: December 18, 2021 Subjective No complaints of chest pain, shortness of breath, or palpitations. Physical Exam Physical Exam: In general is well-developed well-nourished white male no acute distress. HEENT exam is negative. Neck is supple with full carotid upstrokes. No carotid bruits. Jugular is pressure is flat at 90. There is no thyromegaly. Cardiovascular exam reveals a regular rhythm with a normal S1-S2. Heart sounds are distant. No obvious murmurs. Lungs are clear without rales, rhonchi, or wheezes. Abdomen notes a dry dressing. Extremities reveal intact radial artery pulses bilaterally. There is no peripheral edema. 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 No atrial fibrillation since December 21. PG Care Time/CCT Total # of Minutes Spent Total Time Spent with Patient: Total time spent is greater than 50% in coordination of care (as documented) at patient's floor/unit and/or counseling patient: Coding Level of Care Code 09293 Subseq Hosp Care Lvl 3 Diagnoses Paroxysmal A-fib I48.0 CAD (coronary artery disease) I25.10 NICM (nonischemic cardiomyopathy) I42.8 Hypertension I10
[2021-12-25] MEDS: METOPROLOL TARTRATE 1 MG/ML VIAL IV SCH ×3 (10:18→18:13)
[2021-12-25] MEDS: APIXABAN 5 MG TABLET PO SCH ×2 (10:19→20:16)
[2021-12-25] MEDS: PANTOprazole 40 MG in SYRINGE 0 ML IV SCH ×2 (10:19→20:17)
[2021-12-25] MEDS ORDERED: LORazepam 0.5 MG in SYRINGE 0 ML IV PRN (18:31)
[2021-12-25] MEDS ORDERED: METOPROLOL TARTRATE 25 MG TAB PO SCH (21:00)
[2021-12-26] MEDS: NSS + 20MEQ KCL 20 MEQ/1,000 ML BAG IV SCH (05:27)
[2021-12-26] MEDS ORDERED: hydrALAZINE HCL 20 MG/ML VIAL IV PRN (07:39)
[2021-12-26] MEDS: APIXABAN 5 MG TABLET PO SCH ×2 (09:08→20:23)
[2021-12-26] MEDS: NICOTINE 7 MG/24 HR TDSY TD SCH (09:09)
[2021-12-26] MEDS: PANTOprazole 40 MG in SYRINGE 0 ML IV SCH ×2 (09:09→21:25)
[2021-12-26] MEDS: METOPROLOL TARTRATE 25 MG TAB PO SCH ×2 (09:09→20:23)
--- NOTE | 2021-12-26 09:23 | Surgery Progress Note ---
Date of Service December 26, 2021 Assessment & Plan (1) Colon cancer: Plan: POD#8 robotic assisted LAR with diverting ileostomy - Tolerated NGT removal yesterday. Ileostomy w/ liquid stool in bag - Will advance to full liquids for lunch - PT evaluated and recommending home with family support + home health. Family comfortable with wound care - Continue to encourage OOB as tolerates Admission and Anticipated Discharge Date Admission Date: December 18, 2021 Supervising Physician Co-Signing Physician Notes Patient seen and examined, labs and imaging reviewed, agree with above. 81-year-old male POD #8 robotic assisted low anterior resection with colorectal anastomosis and diverting loop ileostomy. Overall doing well. NG tube removed yesterday after return of ostomy function. He tolerated clear liquids, however this morning after smelling the broth he did vomit about 100 cc of bilious fluid. He denies any nausea but he does feel full. He does not feel as bloated. On exam he is afebrile stable vitals. Ostomy slightly edematous but productive of bilious succus. Ostomy is patent. Incision with cedrick, no infection or hernia. We will continue with full liquids as this is already been ordered. He was advised to take it slow. If he tolerates he may advance to low fiber diet. We will keep an eye of his ostomy output. Potential discharge in next few days if medically cleared. Subjective Patient feeling well. Denies abdominal pain, nausea/vomiting or worsening bloating. Physical Exam Physical Exam: awake/alert, no distress Gastrointestinal (Abdomen): Inspection/Auscultation: + abdomen distended and + abdominal surgical incision (c/d/i) Percussion/Palpation: abdomen soft; abdomen nontender + ostomy with liquid brown/green stool in bag Results & Data ([facility]) Vital Signs (Past 12 Hours) Vital Signs Temp Pulse Pulse Resp BP BP Pulse Ox 12/26/21 08:50 128/79 12/26/21 07:35 37.3 C 80 18 213/118 H 183/94 H 92 12/26/21 03:59 37.3 C 69 12 145/82 H 92 12/25/21 22:30 37.1 C 70 18 128/80 94 O2 Del Method 12/26/21 08:50 12/26/21 07:35 Room Air 12/26/21 03:59 Room Air 12/25/21 22:30 Room Air PG Care Time/CCT Total # of Minutes Spent Total Time Spent with Patient: Total time spent is greater than 50% in coordination of care (as documented) at patient's floor/unit and/or counseling patient: Coding Level of Care Code None Diagnoses Colon cancer C18.9
[2021-12-26] MEDS: ONDANSETRON INJ 2 MG/ML 2 ML VIAL IV PRN ×2 (12:43→16:44)
--- NOTE | 2021-12-26 16:27 | Hospitalist Progress Note ---
Date of Service December 26, 2021 Assessment & Plan (1) Atrial fibrillation with RVR: Plan: episode occurred evening of 12/19 - spontaneous conversion back to NSR. then returned to rapid a.fib on 12/21. placed back on cardizem drip then. 12/22/21 PM - spontaneous conversion back to NSR; dilt drip stopped. metoprolol tartrate 25 mg bid, re add lisinipril 12/26/21 eliquis 5mg BID. mag/K wnl. TSH wnl cont to monitor on tele. most recent echo - done as outpatient in [place] - EF 45-50%. (2) Adenocarcinoma of sigmoid colon: Plan: s/p 12/28/21 Robotic Laparoscopic assisted low anterior resection with mobilization of splenic flexure and end-to-end anastomosis, diverting loop ileostomy by Dr Huff. returning bowel function defer management to gen surg (3) Chronic systolic CHF (congestive heart failure): Plan: may have been mildly decompensated in the setting of IV hydration, his surgery, rapid a.fib, etc. this past Thursday received lasix 20mg po x 1. Na levels had continued to drop even with IV hydration. BNP had been elevated at 300. 5+ liters positive since admission. stopped IV fluids 12/20. Diuretics currently on hold cont BB. binh i most recent echo - 07/2021 in [place] - EF 45-50%, grade 1 diastolic dysfunction, no valvular dysfunction. normal LV wall motion. (4) Hyponatremia: Plan: worsened with IV fluids post-op. lowest Na 129. (5) Hypertension: Plan: BPs satisfactory at this time. Cont BB lisinopril hold aldactone. 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 (9) CAD (coronary artery disease): Plan: 03/2020 - [facility] cardiac cath minimal nonobstructive lesions in LAD and LCx RCA with a 50-60% lesion only appreciate cardiology consultation elevated troponin (peak was 9460) thought NOT due to acute coronary syndrome but demand ischemia in setting of rapid a.fib has had NO ischemic symptoms during this stay (10) COPD (chronic obstructive pulmonary disease): Plan: without exacerbation at this time albuterol prn (11) Demand ischemia of myocardium: Plan: peak HS troponin 9463 trending down nicely seen by cardiology - felt to represent demand ischemia in setting of rapid a.fib cath 2020 at [facility] as above no obstructive lesions then appreciate cardiology consult & input no ischemic symptoms since admission Plan will cont to follow Admission and Anticipated Discharge Date Admission Date: December 18, 2021 Subjective pt states he is depressed, but does not want medications, he is tolerating po intake, and ostomy is functioning and pain control Review of Systems Review of Systems: Mild distress and fatigue no headache, no visual changes no speech or swallowing issues no chest pain, pressure or palpitations no shortness of breath, cough or wheezes ng tube removed mild abdominal pain no dysuria, hematuria or frequency no focal joint pain or swelling no back pain, CVA tenderness or radicular pain no bruising, bleeding or rashes no focal signs of weakness or numbness or altered sensation no complaints of anxiety or depression.. Physical Exam Physical Exam: The patient appeared stable Vital signs as documented. Lungs are clear to auscultation and appear unlabored Cardiac exam, Rhythm is regular.. No murmurs, rubs or gallops. Abdominal exam reveals normal bowel sounds, soft , ileostomy is functioning Extremities are nonedematous and both pedal pulses are normal. Neurologic exam is alert and oriented, no focal loss of strength or sensation Skin is without bruises or rashes Psychologically is with concerns for depression. Results & Data Results & Data ([facility]) Vital Signs (Past 12 Hours) Vital Signs Temp Pulse Pulse Resp BP BP Pulse Ox 12/26/21 15:33 98.6 F 74 18 145/81 H 93 12/26/21 08:00 12/26/21 11:00 99.0 F 67 18 128/79 99 12/26/21 08:00 66 12/26/21 08:50 128/79 12/26/21 07:35 99.1 F 80 18 213/118 H 183/94 H 92 O2 Del Method 12/26/21 15:33 Room Air 12/26/21 08:00 Room Air 12/26/21 11:00 12/26/21 08:00 12/26/21 08:50 12/26/21 07:35 Room Air PG Care Time/CCT Total # of Minutes Spent Total Time Spent with Patient: Total time spent is greater than 50% in coordination of care (as documented) at patient's floor/unit and/or counseling patient: Coding Level of Care Code 87469 Subseq Hosp Care Lvl 3 Diagnoses Atrial fibrillation with RVR I48.91 Adenocarcinoma of sigmoid colon C18.7 Chronic systolic CHF (congestive heart failure) I50.22 Hyponatremia E87.1 Hypertension I10 Hyperlipidemia E78.5 Alcohol abuse F10.10 Tobacco use Z72.0 CAD (coronary artery disease) I25.10 COPD (chronic obstructive pulmonary disease) J44.9 Demand ischemia of myocardium I24.8
[2021-12-26] MEDS ORDERED: lisinopril 2.5 MG TAB PO ONE (16:42)
--- NOTE | 2021-12-27 07:13 | Hospitalist Progress Note ---
Date of Service December 27, 2021 Assessment & Plan (1) Atrial fibrillation with RVR: Plan: on second event required diltiazem gtt - conversion back to NSR. metoprolol tartrate 25 mg bid, re add lisinipril 12/26/21 eliquis 5mg BID. mag/K wnl. TSH wnl cont to monitor on tele. most recent echo - done as outpatient in [place] - EF 45-50%. (2) Adenocarcinoma of sigmoid colon: Plan: s/p 12/28/21 Robotic Laparoscopic assisted low anterior resection with mobilization of splenic flexure and end-to-end anastomosis, diverting loop ileostomy by Dr Huff. returning bowel function, higher ileostomy outputs 12/28 appreciate Gen Surgery oversight (3) Chronic systolic CHF (congestive heart failure): Plan: may have been mildly decompensated in the setting of IV hydration, his surgery, rapid a.fib, etc. received lasix 20mg po x 1. Diuretics currently on hold cont BB. binh i most recent echo - 07/2021 in [place] - EF 45-50%, grade 1 diastolic dysfunction, no valvular dysfunction. normal LV wall motion. (4) Hyponatremia: Plan: resolving (5) Hypertension: Plan: BPs satisfactory at this time. Cont BB lisinopril hold aldactone. 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 (9) CAD (coronary artery disease): Plan: 03/2020 - [facility] cardiac cath minimal nonobstructive lesions in LAD and LCx RCA with a 50-60% lesion only appreciate cardiology consultation elevated troponin (peak was 9460) thought NOT due to acute coronary syndrome but demand ischemia in setting of rapid a.fib has had NO ischemic symptoms during this stay (10) COPD (chronic obstructive pulmonary disease): Plan: without exacerbation at this time albuterol prn (11) Demand ischemia of myocardium: Plan: peak HS troponin 9463trending down seen by cardiology - felt to represent demand ischemia in setting of rapid a.fib cath 2020 at [facility] as above no obstructive lesions then appreciate cardiology consult & input no ischemic symptoms since admission Plan continued discussion about depression, pt does not want antidepressant Admission and Anticipated Discharge Date Admission Date: December 18, 2021 Subjective this pt seems persistently depressed, but does not want antidepression he has had some high outputs from ileostomy, surgery is determining diet and fiber intake Review of Systems Review of Systems: Mild distress and fatigue no headache, no visual changes no speech or swallowing issues no chest pain, pressure or palpitations no shortness of breath, cough or wheezes ng tube removed mild abdominal pain no dysuria, hematuria or frequency no focal joint pain or swelling no back pain, CVA tenderness or radicular pain no bruising, bleeding or rashes no focal signs of weakness or numbness or altered sensation complaints of depression.. Physical Exam Physical Exam: The patient appeared stable Vital signs as documented. Lungs are clear to auscultation and appear unlabored Cardiac exam, Rhythm is regular.. No murmurs, rubs or gallops. Abdominal exam reveals normal bowel sounds, soft , ileostomy is functioning Extremities are nonedematous and both pedal pulses are normal. Neurologic exam is alert and oriented, no focal loss of strength or sensation Skin is without bruises or rashes Psychologically is with concerns for depression. Results & Data Results & Data ([facility]) Vital Signs (Past 12 Hours) Vital Signs Temp Pulse Pulse Resp BP Pulse Ox O2 Del Method 12/27/21 03:00 97.9 F 80 20 129/78 94 Room Air 12/26/21 23:37 70 12/26/21 22:35 97.7 F 79 20 116/77 92 Room Air PG Care Time/CCT Total # of Minutes Spent Total Time Spent with Patient: Total time spent is greater than 50% in coordination of care (as documented) at patient's floor/unit and/or counseling patient: Coding Level of Care Code 08197 Subseq Hosp Care Lvl 2 Diagnoses Atrial fibrillation with RVR I48.91 Adenocarcinoma of sigmoid colon C18.7 Chronic systolic CHF (congestive heart failure) I50.22 Hyponatremia E87.1 Hypertension I10 Hyperlipidemia E78.5 Alcohol abuse F10.10 Tobacco use Z72.0 CAD (coronary artery disease) I25.10 COPD (chronic obstructive pulmonary disease) J44.9 Demand ischemia of myocardium I24.8
[2021-12-27 07:33] LABS: Basophils # (auto) 0.01 K/uL (0-0.2); Basophils % (auto) 0.1 %; Eosinophils # (auto) 0.05 K/uL (0-0.50); Eosinophils % (auto) 0.7 %; Hematocrit (blood only) 38.5 % (40.1-51.0); Hemoglobin 12.3 g/dl (14.0-18.0); Immature Granulocytes # (auto) 0.07 K/uL (0.00-0.02); Immature Granulocytes % (auto) 0.9 %; Lymphocytes # (auto) 0.42 K/uL (1.2-3.4); Lymphocytes % (auto) 5.5 %; Mean Corpuscular Hemoglobin 27.8 pg (25.0-34.0); Mean Corpuscular Hgb Conc 31.9 g/dL (32.0-36.0); Mean Corpuscular Volume 86.9 fL (80.0-100.0); Mean Platelet Volume 8.9 fL (9.4-12.4); Monocytes # (auto) 1.09 K/uL (0.24-0.82); Monocytes % (auto) 14.2 %; Neutrophils # (auto) 6.03 K/uL (1.4-6.5); Neutrophils % (auto) 78.6 %; Platelet Count 315 K/uL (130-400); RDW Coefficient of Variation 16.4 % (11.5-14.5); RDW Standard Deviation 52.8 fL (36.4-46.3); Red Blood Count 4.43 M/uL (4.63-6.08); White Blood Count 7.67 K/ul (4.8-10.8)
[2021-12-27] MEDS: APIXABAN 5 MG TABLET PO SCH ×2 (08:19→21:34)
[2021-12-27] MEDS: METOPROLOL TARTRATE 25 MG TAB PO SCH ×2 (08:19→21:34)
[2021-12-27] MEDS: PANTOprazole 40 MG in SYRINGE 0 ML IV SCH ×2 (08:20→21:34)
[2021-12-27] MEDS: NICOTINE 7 MG/24 HR TDSY TD SCH (08:20)
[2021-12-27 08:24] LABS: BUN Creatinine Ratio 21.8 (10-20); Calcium 8.8 mg/dl (8.5-10.1); Creatinine Clr Calc Pharmacy 73.1 ml/min; Est GFR (African American) 93.8 ml/min; Est GFR (Non-African American) 80.9 ml/min; Potassium 3.9 mmol/L (3.5-5.1)
[2021-12-27] MEDS ORDERED: oxyCODONE/ACETAMINOPHEN 5mg/325mg TAB PO PRN (08:51)
--- NOTE | 2021-12-27 08:56 | Surgery Progress Note ---
Date of Service December 27, 2021 Assessment & Plan (1) Colon cancer: Plan: POD#9 robotic assisted LAR with diverting ileostomy Will advance to low fiber PO analgesics possibly home in next 24 hours if tolerates diet Admission and Anticipated Discharge Date Admission Date: December 18, 2021 Supervising Physician Co-Signing Physician Notes Patient seen and examined, labs and imaging reviewed, agree with above. 81-year-old male POD #9 robotic assisted low anterior resection with colorectal anastomosis and diverting loop ileostomy. Overall doing well. Ostomy with increased output, tolerated low fiber diet. On exam he is afebrile stable vitals. Ostomy pink, patent, and productive of succus. Incision with cedrick, no infection or hernia. labs unremarkable. potential discharge tomorrow, will touch base with medicine for any meds/instructions monitor electrolytes and ostomy output may remove bridge f/u with me next week for staple removal f/u with pcp likely ileostomy reversal in 6-8 weeks wound care instructions, activity restrictions, and return precautions reviewed Dr. Calle covering over weekend Subjective mild pain, tolerating full liquids but doesn't like choices, Physical Exam Constitutional: WD/WN, vitals as above Gastrointestinal (Abdomen): Inspection/Auscultation: + abdomen distended (minimal) and + abdominal surgical incision (no erythema) Percussion/Palpation: abdomen soft liquid ostomy output Results & Data ([facility]) Vital Signs (Past 12 Hours) Vital Signs Temp Pulse Pulse Pulse Resp BP Pulse Ox 12/27/21 07:25 36.9 C 69 20 116/66 93 12/27/21 03:00 36.6 C 80 20 129/78 94 12/26/21 23:37 70 12/26/21 22:35 36.5 C 79 20 116/77 92 O2 Del Method 12/27/21 07:25 Room Air 12/27/21 03:00 Room Air 12/26/21 23:37 12/26/21 22:35 Room Air PG Care Time/CCT Total # of Minutes Spent Total Time Spent with Patient: Total time spent is greater than 50% in coordination of care (as documented) at patient's floor/unit and/or counseling patient: Coding Level of Care Code None Diagnoses Colon cancer C18.9
[2021-12-27] MEDS ORDERED: lisinopril 2.5 MG TAB PO SCH (09:00)
[2021-12-28] MEDS ORDERED: 0.2 MICRON FILTER SET 1 EACH IV STA (07:49)
[2021-12-28] MEDS ORDERED: AMIODARONE IV BOLUS & DRIP IV STA (07:49)
[2021-12-28] MEDS ORDERED: AMIODARONE / D5W 150 MG/100 ML BAG IV STA (07:49)
[2021-12-28] MEDS ORDERED: STAT IV Infusion **Titration per Protocol STA (07:49)
[2021-12-28] MEDS ORDERED: MAGNESIUM SULFATE / D5W 1 GM/100 ML BAG IV ONE (07:51)
[2021-12-28] MEDS ORDERED: AMIODARONE 150MG / 100ML D5W IV ONE (07:52)
[2021-12-28] MEDS ORDERED: AMIODARONE 360MG / 200ML D5W IV ONE (07:52)
--- NOTE | 2021-12-28 07:56 | Surgery Progress Note ---
Date of Service December 28, 2021 Assessment & Plan (1) Colon cancer: Plan: Patient overnight had moderate amount of drainage through the ileostomy with 1300 cc would like to keep him another day to make sure that this output does not continue and have him develop dehydration Plan Will encourage him to increase oral intake of fluids Admission and Anticipated Discharge Date Admission Date: December 18, 2021 Subjective Overall feels well no major issues presented Physical Exam Physical Exam: Alert coherent resting comfortably Abdomen is benign incision minimal reaction around the cedrick no drainage Ileostomy bag presents with more solidified enteric contents Results & Data ([facility]) Vital Signs (Past 12 Hours) Vital Signs Temp Pulse Pulse Pulse Resp BP BP 12/28/21 07:29 36.4 C L 73 18 107/61 12/28/21 02:49 37.2 C 81 16 106/55 L 12/27/21 23:23 82 12/27/21 23:02 37.2 C 83 18 96/54 L Pulse Ox O2 Del Method 12/28/21 07:29 92 Room Air 12/28/21 02:49 94 Room Air 12/27/21 23:23 12/27/21 23:02 93 PG Care Time/CCT Total # of Minutes Spent Total Time Spent with Patient: Total time spent is greater than 50% in coordination of care (as documented) at patient's floor/unit and/or counseling patient: Coding Level of Care Code None Diagnoses Colon cancer C18.9
[2021-12-28] MEDS ORDERED: AMIODARONE / D5W 360 MG/200 ML BAG IV ONE (07:59)
[2021-12-28] MEDS: SODIUM CHLORIDE 0.9% 500 ML IV SCH ×14 (08:04→19:01)
[2021-12-28] MEDS: NICOTINE 7 MG/24 HR TDSY TD SCH (08:14)
[2021-12-28] MEDS: METOPROLOL TARTRATE 25 MG TAB PO SCH ×2 (08:14→22:28)
[2021-12-28] MEDS: PANTOprazole 40 MG in SYRINGE 0 ML IV SCH ×2 (08:15→21:02)
[2021-12-28] MEDS: APIXABAN 5 MG TABLET PO SCH (08:16)
[2021-12-28 08:24] LABS: Hematocrit (blood only) 41.3 % (40.1-51.0); Hemoglobin 13.5 g/dl (14.0-18.0); Mean Corpuscular Hemoglobin 28.3 pg (25.0-34.0); Mean Corpuscular Hgb Conc 32.7 g/dL (32.0-36.0); Mean Corpuscular Volume 86.6 fL (80.0-100.0); Mean Platelet Volume 9.4 fL (9.4-12.4); Platelet Count 328 K/uL (130-400); RDW Coefficient of Variation 16.7 % (11.5-14.5); RDW Standard Deviation 52.9 fL (36.4-46.3); Red Blood Count 4.77 M/uL (4.63-6.08); White Blood Count 7.49 K/ul (4.8-10.8)
[2021-12-28 10:06] LABS: BUN Creatinine Ratio 15.8 (10-20); Creatinine Clr Calc Pharmacy 27.5 ml/min; Est GFR (African American) 31.1 ml/min; Est GFR (Non-African American) 26.8 ml/min; Potassium 3.6 mmol/L (3.5-5.1)
[2021-12-28] MEDS: AMIODARONE / D5W 360 MG/200 ML BAG IV SCH (13:40)
--- NOTE | 2021-12-28 15:29 | Hospitalist Progress Note ---
Date of Service December 28, 2021 Assessment & Plan (1) Atrial fibrillation with RVR: Plan: Recurrent atrial fibrillation RVR. This may be in the face of volume depletion from increased ileostomy fluid output. Initiated on amiodarone drip magnesium infusion given Previously he had required diltiazem gtt -however hypotension prevents using this modality at this time. Hopeful amiodarone will spur conversion back to NSR. metoprolol tartrate 25 mg bid, think MERRICK inhibitor with acute kidney injury watch metoprolol dosing with relative hypotension eliquis 5mg BID. Although creatinine did increase will continue Eliquis at 5 would not reduce dose mag/K wnl. TSH wnl cont to monitor on tele. most recent echo - done as outpatient in [place] - EF 45-50%. (2) Adenocarcinoma of sigmoid colon: Plan: s/p 12/28/21 Robotic Laparoscopic assisted low anterior resection with mobilization of splenic flexure and end-to-end anastomosis, diverting loop ileostomy by Dr Huff. returning bowel function, higher ileostomy outputs 12/27, initiated IV fluid with potassium on 12/28 appreciate Gen Surgery oversight (3) Chronic systolic CHF (congestive heart failure): Plan: may have been mildly decompensated in the setting of IV hydration, his surgery, rapid a.fib, etc. received lasix 20mg po x 1. Now with acute kidney injury IV fluid to be given he was given 1 L bolus and will be given additional liter reevaluating volume status on 12/29/2021 Diuretics currently on hold cont BB. Stopped lisinopril with acute kidney injury on top of chronic kidney disease stage III most recent echo - 07/2021 in [place] - EF 45-50%, grade 1 diastolic dysfunction, no valvular dysfunction. normal LV wall motion. (4) Hyponatremia: Plan: resolving (5) Hypertension: Plan: BPs satisfactory at this time. 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 (9) CAD (coronary artery disease): Plan: 03/2020 - [facility] cardiac cath minimal nonobstructive lesions in LAD and LCx RCA with a 50-60% lesion only appreciate cardiology consultation elevated troponin (peak was 9460) thought NOT due to acute coronary syndrome but demand ischemia in setting of rapid a.fib has had NO ischemic symptoms during this stay (10) COPD (chronic obstructive pulmonary disease): Plan: without exacerbation at this time albuterol prn (11) Demand ischemia of myocardium: Plan: peak HS troponin 9463trending down seen by cardiology - felt to represent demand ischemia in setting of rapid a.fib cath 2020 at [facility] no obstructive lesions then appreciate cardiology consult & input no ischemic symptoms since admission even in the face of rapid ventricular response from his A. fib Plan continued discussion about depression, pt does not want antidepressant Admission and Anticipated Discharge Date Admission Date: December 18, 2021 Subjective Patient was with low blood pressure and A. fib RVR this morning. He cannot sense palpitations or chest pain. He was having symptoms from his low blood pressure. Is concerning that he has some acute kidney injury which may be from increased ostomy output causing intravascular volume depletion subsequently he was given fluid boluses x2 started on amiodarone drip and initiated on normal saline infusion with potassium His heart rate was better controlled in the afternoon but he did suffer acute kidney injury we will continue to watch his cautiously Review of Systems Review of Systems: Mild distress and fatigue no headache, no visual changes no speech or swallowing issues no chest pain, pressure or palpitations no shortness of breath, cough or wheezes ng tube removed mild abdominal pain no dysuria, hematuria or frequency no focal joint pain or swelling no back pain, CVA tenderness or radicular pain no bruising, bleeding or rashes no focal signs of weakness or numbness or altered sensation complaints of depression.. Physical Exam Physical Exam: The patient appeared stable Vital signs as documented. Lungs are clear to auscultation and appear unlabored Cardiac exam, Rhythm is regular.. No murmurs, rubs or gallops. Abdominal exam reveals normal bowel sounds, soft , ileostomy is functioning Extremities are nonedematous and both pedal pulses are normal. Neurologic exam is alert and oriented, no focal loss of strength or sensation Skin is without bruises or rashes Psychologically is with concerns for depression. Results & Data Results & Data ([facility]) Vital Signs (Past 12 Hours) Vital Signs Temp Pulse Pulse Pulse Resp BP BP 12/28/21 15:05 98.0 F 98 H 18 91/59 L 12/28/21 13:23 94/54 L 12/28/21 11:10 98.4 F 99 H 16 84/54 L 12/28/21 10:35 12/28/21 08:35 81/58 L 12/28/21 09:59 88/48 L 12/28/21 08:00 71 12/28/21 07:29 97.5 F L 73 18 107/61 Pulse Ox O2 Del Method 12/28/21 15:05 94 Room Air 12/28/21 13:23 12/28/21 11:10 95 Room Air 12/28/21 10:35 Room Air 12/28/21 08:35 12/28/21 09:59 12/28/21 08:00 12/28/21 07:29 92 Room Air PG Care Time/CCT Total # of Minutes Spent Total Time Spent with Patient: Total time spent is greater than 50% in coordination of care (as documented) at patient's floor/unit and/or counseling patient: Coding Level of Care Code 72751 Subseq Hosp Care Lvl 3 Diagnoses Atrial fibrillation with RVR I48.91 Adenocarcinoma of sigmoid colon C18.7 Chronic systolic CHF (congestive heart failure) I50.22 Hyponatremia E87.1 Hypertension I10 Hyperlipidemia E78.5 Alcohol abuse F10.10 Tobacco use Z72.0 CAD (coronary artery disease) I25.10 COPD (chronic obstructive pulmonary disease) J44.9 Demand ischemia of myocardium I24.8
[2021-12-28] MEDS ORDERED: NSS + 20MEQ KCL 20 MEQ/1,000 ML BAG IV SCH (15:45)
[2021-12-28] MEDS ORDERED: ALBUMIN 25% 100 mL 25 GM/100 ML VIAL IV ONE (20:00)
[2021-12-28] MEDS ORDERED: SODIUM CHLORIDE 0.9% 250 ML IV ONE (20:00)
[2021-12-28] MEDS ORDERED: POTASSIUM CHLORIDE / WTR 10 MEQ/100 ML PLCT IV SCH (20:15)
--- NOTE | 2021-12-28 20:19 | Communication Note ---
Date of Service: December 28, 2021 Notified by patient's RN that he continues to remain in AFib RVR with rates in the 130-140 range. Thankfully asymptomatic but per report continues to appear quite dry. His most recent BP is 95/61. He is on amiodarone drip. He continues to have significant ostomy output. Daytime notes and charting, including I&Os and reference to his recent TTE at [place], reviewed. AFib RVR in Setting of Dehydration - Amio gtt ongoing. Continue hydration - increase mIVF to 125cc/hr given clinically dry appearance and give additional 250cc bolus now. Replete K with additional 20 mEq. Recheck BMP+Mg at 2300 and again in AM and give more if needed. His softer pressures are considered amidst work-up and management. Will update this note as needed. Resident Activity Tracking Resident Involvement: Resident Care Provided Care Provided: Adult [facility] Medicine
[2021-12-28] MEDS ORDERED: POTASSIUM CHLORIDE CRTAB 20 MEQ TABCR PO STA (20:34)
[2021-12-28] MEDS: APIXABAN 2.5 MG TAB PO SCH (21:01)
[2021-12-29 00:03] LABS: BUN Creatinine Ratio 23.5 (10-20); Calcium 8.7 mg/dl (8.5-10.1); Creatinine Clr Calc Pharmacy 37.7 ml/min; Est GFR (African American) 45.5 ml/min; Est GFR (Non-African American) 39.2 ml/min; Magnesium 2.1 mg/dl (1.7-2.4); Potassium 3.6 mmol/L (3.5-5.1)
[2021-12-29] MEDS ORDERED: POTASSIUM CHLORIDE CRTAB 20 MEQ TABCR PO STA (00:16)
[2021-12-29] MEDS ORDERED: MAGNESIUM SULFATE / D5W 1 GM/100 ML BAG IV ONE (00:16)
[2021-12-29] MEDS: AMIODARONE / D5W 360 MG/200 ML BAG IV SCH ×2 (00:51→13:33)
[2021-12-29] MEDS ORDERED: SODIUM CHLORIDE 0.9% 1000ML 1,000 ML IV SCH (05:30)
[2021-12-29 06:19] LABS: Basophils # (auto) 0.01 K/uL (0-0.2); Basophils % (auto) 0.1 %; Eosinophils # (auto) 0.07 K/uL (0-0.50); Eosinophils % (auto) 0.8 %; Hematocrit (blood only) 38.4 % (40.1-51.0); Hemoglobin 12.7 g/dl (14.0-18.0); Immature Granulocytes # (auto) 0.08 K/uL (0.00-0.02); Immature Granulocytes % (auto) 0.9 %; Lymphocytes # (auto) 0.67 K/uL (1.2-3.4); Lymphocytes % (auto) 7.9 %; Mean Corpuscular Hemoglobin 27.9 pg (25.0-34.0); Mean Corpuscular Hgb Conc 33.1 g/dL (32.0-36.0); Mean Corpuscular Volume 84.4 fL (80.0-100.0); Mean Platelet Volume 9.5 fL (9.4-12.4); Monocytes # (auto) 1.15 K/uL (0.24-0.82); Monocytes % (auto) 13.6 %; Neutrophils % (auto) 76.7 %; Platelet Count 319 K/uL (130-400); RDW Coefficient of Variation 16.4 % (11.5-14.5); RDW Standard Deviation 51.4 fL (36.4-46.3); Red Blood Count 4.55 M/uL (4.63-6.08); White Blood Count 8.48 K/ul (4.8-10.8)
[2021-12-29 06:46] LABS: Albumin Globulin Ratio 1.7 (0.9-2); Albumin Level 3.7 gm/dl (3.4-5.0); BUN Creatinine Ratio 26.9 (10-20); Bilirubin,Total 0.4 mg/dl (0.2-1.0); Calcium 8.4 mg/dl (8.5-10.1); Creatinine Clr Calc Pharmacy 52.5 ml/min; Est GFR (Non-African American) 56.9 ml/min; Globulin 2.2 gm/dl (2.5-4.0); Magnesium 2.3 mg/dl (1.7-2.4); Potassium 3.7 mmol/L (3.5-5.1); Total Protein 5.9 gm/dl (6.0-8.3)
--- NOTE | 2021-12-29 07:05 | Electrocardiogram Report ---
Test Reason : Blood Pressure : / mmHG Vent. Rate : 184 BPM Atrial Rate : 192 BPM P-R Int : 000 ms QRS Dur : 092 ms QT Int : 238 ms P-R-T Axes : 000 061 221 degrees QTc Int : 416 ms Atrial fibrillation with rapid ventricular response Abnormal ECG When compared with ECG of 20-DEC-2021 01:26, Atrial fibrillation has replaced Sinus rhythm Vent. rate has increased BY [address] now depressed in Anterolateral leads T wave inversion more evident in Inferior leads T wave inversion now evident in Lateral leads Confirmed by Abner Torres ([id number]) on 12/29/2021 7:05:21 AM Referred By: Lucho Huff Confirmed By:Alejandro Torres
[2021-12-29] MEDS ORDERED: dilTIAZem HCl 5 MG/ML 5 ML VIAL IV STA (07:10)
--- NOTE | 2021-12-29 07:12 | Hospitalist Progress Note ---
Date of Service December 29, 2021 Assessment & Plan (1) Atrial fibrillation with RVR: Plan: Recurrent atrial fibrillation RVR. This may be in the face of volume depletion from increased ileostomy fluid output. Initiated on amiodarone drip magnesium infusion given, pt eventually converted to NSR in the am of 12/29/21, continues on gtt, and metoprolol metoprolol tartrate 25 mg bid, held MERRICK inhibitor with acute kidney injury watch metoprolol dosing with relative hypotension eliquis 5mg BID. Although creatinine did increase will continue Eliquis at 5 would not reduce dose mag/K wnl. TSH wnl cont to monitor on tele. most recent echo - done as outpatient in [place] - EF 45-50%. (2) Adenocarcinoma of sigmoid colon: Plan: s/p 12/28/21 Robotic Laparoscopic assisted low anterior resection with mobilization of splenic flexure and end-to-end anastomosis, diverting loop ileostomy by Dr Huff. returning bowel function, higher ileostomy outputs 12/27, initiated IV fluid with potassium on 12/28 appreciate Gen Surgery oversight (3) Chronic systolic CHF (congestive heart failure): Plan: may have been mildly decompensated in the setting of IV hydration, his surgery, rapid a.fib, etc. received lasix 20mg po x 1. Now with acute kidney injury IV fluid to be given he was given 1 L bolus and will be given additional liter reevaluating volume status on 12/29/2021 Diuretics currently on hold cont BB. Stopped lisinopril with acute kidney injury on top of chronic kidney disease stage III most recent echo - 07/2021 in [place] - EF 45-50%, grade 1 diastolic dysfunction, no valvular dysfunction. normal LV wall motion. (4) Hyponatremia: Plan: resolving (5) Hypertension: Plan: BPs satisfactory at this time. 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 (9) CAD (coronary artery disease): Plan: 03/2020 - [facility] cardiac cath minimal nonobstructive lesions in LAD and LCx RCA with a 50-60% lesion only appreciate cardiology consultation elevated troponin (peak was 9460) thought NOT due to acute coronary syndrome but demand ischemia in setting of rapid a.fib has had NO ischemic symptoms during this stay (10) COPD (chronic obstructive pulmonary disease): Plan: without exacerbation at this time albuterol prn (11) Demand ischemia of myocardium: Plan: peak HS troponin 9463trending down seen by cardiology - felt to represent demand ischemia in setting of rapid a.fib cath 2020 at [facility] no obstructive lesions then appreciate cardiology consult & input no ischemic symptoms since admission even in the face of rapid ventricular response from his A. fib Plan continued discussion about depression, pt does not want antidepressant Admission and Anticipated Discharge Date Admission Date: December 18, 2021 Subjective Patient is in no particular distress however does have a little bit of distentio n and decreased ileostomy output today KUB did show some ileus. His atrial fibrillation converted on at amiodarone. Electrophysiology believes we should keep the amiodarone for an additional 24 hours and then if taking p.o. well consider conversion to oral amiodarone. Continue metoprolol watching blood pressure. Review of Systems Review of Systems: Mild distress and fatigue no headache, no visual changes no speech or swallowing issues no chest pain, pressure or palpitations no shortness of breath, cough or wheezes mild abdominal pain no dysuria, hematuria or frequency no focal joint pain or swelling no back pain, CVA tenderness or radicular pain no bruising, bleeding or rashes no focal signs of weakness or numbness or altered sensation complaints of depression. Offered antidepressant patient does not want antidepressant. Physical Exam Physical Exam: The patient appeared stable Vital signs as documented. Lungs are clear to auscultation and appear unlabored Cardiac exam, initially tachycardia has broke into normal sinus rhythm and regular rhythm.. No murmurs, rubs or gallops. Abdominal exam reveals normal bowel sounds, soft , slightly more distended on 12/29/2021 decreased ileostomy output also on this day Extremities are nonedematous and both pedal pulses are normal. Neurologic exam is alert and oriented, no focal loss of strength or sensation Skin is without bruises or rashes Psychologically is with concerns for depression. Results & Data Results & Data ([facility]) Vital Signs (Past 12 Hours) Vital Signs Temp Pulse Pulse Pulse Resp BP Pulse Ox 12/29/21 03:00 98.8 F 115 H 18 97/64 L 94 12/28/21 23:50 12/28/21 23:42 132 H 12/28/21 23:14 99.1 F 104 H 18 110/63 93 12/28/21 22:10 136 H O2 Del Method 12/29/21 03:00 Room Air 12/28/21 23:50 Room Air 12/28/21 23:42 12/28/21 23:14 Room Air 12/28/21 22:10 PG Care Time/CCT Total # of Minutes Spent Total Time Spent with Patient: Total time spent is greater than 50% in coordination of care (as documented) at patient's floor/unit and/or counseling patient: Coding Level of Care Code 71502 Subseq Hosp Care Lvl 3 Diagnoses Atrial fibrillation with RVR I48.91 Adenocarcinoma of sigmoid colon C18.7 Chronic systolic CHF (congestive heart failure) I50.22 Hyponatremia E87.1 Hypertension I10 Hyperlipidemia E78.5 Alcohol abuse F10.10 Tobacco use Z72.0 CAD (coronary artery disease) I25.10 COPD (chronic obstructive pulmonary disease) J44.9 Demand ischemia of myocardium I24.8
[2021-12-29] MEDS: ONDANSETRON INJ 2 MG/ML 2 ML VIAL IV PRN ×3 (07:32→17:38)
[2021-12-29] MEDS: NICOTINE 7 MG/24 HR TDSY TD SCH (08:04)
[2021-12-29] MEDS: PANTOprazole 40 MG in SYRINGE 0 ML IV SCH ×2 (08:04→21:03)
[2021-12-29] MEDS: APIXABAN 2.5 MG TAB PO SCH (08:05)
[2021-12-29] MEDS: METOPROLOL TARTRATE 25 MG TAB PO SCH (08:05)
--- NOTE | 2021-12-29 10:30 | Surgery Progress Note ---
Date of Service December 29, 2021 Assessment & Plan (1) Colon cancer: Plan This time we will establish more fluids and take as far as oral intake we will go back to clear liquids for the time being and obtain a KUB of the abdomen Admission and Anticipated Discharge Date Admission Date: December 18, 2021 Subjective Patient does not feel as good as he fell yesterday apparently during the night he went back in atrial fibrillation ileostomy output has decreased with gently overnight feels his belly is a little bit bigger Physical Exam Physical Exam: Is alert coherent in no distress denies any chest pain or nausea The abdomen is more distended without any localized tenderness the incision some reaction at the cedrick with some erythema the ileostomy viable with minimal output Results & Data ([facility]) Vital Signs (Past 12 Hours) Vital Signs Temp Pulse Pulse Resp BP BP Pulse Ox 12/29/21 10:05 73 12/29/21 06:23 122 H 12/29/21 08:00 122 H 12/29/21 07:37 37 C 79 16 103/64 94 12/29/21 03:00 37.1 C 115 H 18 97/64 L 94 12/28/21 23:50 12/28/21 23:42 132 H 12/28/21 23:14 37.3 C 104 H 18 110/63 93 O2 Del Method 12/29/21 10:05 12/29/21 06:23 12/29/21 08:00 12/29/21 07:37 Room Air 12/29/21 03:00 Room Air 12/28/21 23:50 Room Air 12/28/21 23:42 12/28/21 23:14 Room Air PG Care Time/CCT Total # of Minutes Spent Total Time Spent with Patient: Total time spent is greater than 50% in coordination of care (as documented) at patient's floor/unit and/or counseling patient: Coding Level of Care Code None Diagnoses Colon cancer C18.9
--- NOTE | 2021-12-29 11:17 | Cardiology Progress Note ---
Date of Service December 29, 2021 Assessment & Plan (1) Paroxysmal A-fib: Plan: he reverted to atrial fibrillation yesterday morning. He had rapid ventricular rates. He was placed on an amiodarone infusion and some diltiazem was also administered. He converted back to sinus rhythm around 630 this morning. He appears to be asymptomatic. However, he has had recurrent episodes of atrial fibrillation, most with high ventricular rates. This may be related t o his acute illness and postsurgical state. Also lot of volume shifts given his ileostomy output. I think would be reasonable to maintain him on amiodarone. I think we can start oral amiodarone this evening and discontinue the infusion around that time. We can monitor his blood pressure while he is in the hospital and consider increasing his metoprolol at some point as well. Continue apixaban. (2) CAD (coronary artery disease): Plan: -nonobstructive disease at cath, March 2020. -continue medical management. (3) NICM (nonischemic cardiomyopathy): Plan: -LVEF of 45% on echocardiogram, July 2021 (4) Hypertension: Plan: Lower blood pressures recently. Admission and Anticipated Discharge Date Admission Date: December 18, 2021 Subjective This morning patient had no specific complaints. He was unaware of any palpitations or elevated heart rates yesterday. He has been minimally active in the hospital. He did not report any abdominal pain. No chest pain. No dizziness or lightheadedness when ambulating. Review of Systems Review of Systems: Per HPI Physical Exam Physical Exam: The patient is alert and oriented. Mood and affect appeared normal. He answered all questions appropriately. HEENT: Pupils are equal and reactive to light and accommodation. Extraocular movements are intact. The sclerae are anicteric. Neuro: Cranial nerves intact Lungs: Clear to auscultation bilaterally. He has good air movement without use of accessory muscles. No rales wheezes or rhonchi. Cardiac: Heart demonstrates a regular rate and rhythm. Normal S1 and S2. No murmurs on examination. Pulses: The patient has palpable radial pulses bilaterally that are equal in intensity Extremities: There was no evidence of hypoperfusion. There is no cyanosis or clubbing. Skin: I did not appreciate any rashes on examination today. Results & Data ([facility]) Vital Signs (Past 12 Hours) Vital Signs Temp Pulse Pulse Resp BP BP Pulse Ox 10/23/22 10:05 73 12/29/21 06:23 122 H 12/29/21 08:00 122 H 12/29/21 07:37 37 C 79 16 103/64 94 12/29/21 03:00 37.1 C 115 H 18 97/64 L 94 12/28/21 23:50 12/28/21 23:42 132 H 12/28/21 23:14 37.3 C 104 H 18 110/63 93 O2 Del Method 12/29/21 10:05 12/29/21 06:23 12/29/21 08:00 12/29/21 07:37 Room Air 12/29/21 03:00 Room Air 12/28/21 23:50 Room Air 12/28/21 23:42 12/28/21 23:14 Room Air Laboratory Results Abnormal Lab Results 12/28/21 12/29/21 12/29/21 23:15 05:27 05:27 WBC 8.48 RBC 4.55 L Hgb 12.7 L Hct 38.4 L MCV 84.4 MCH 27.9 MCHC 33.1 RDW Std Deviation 51.4 H RDW Coeff of Tonya 16.4 H Plt Count 319 MPV 9.5 Immature Gran % (Auto) 0.9 Neut % (Auto) 76.7 Lymph % (Auto) 7.9 [place] % (Auto) 13.6 Eos % (Auto) 0.8 Baso % (Auto) 0.1 Neut # (Auto) 6.50 Lymph # (Auto) 0.67 L [place] # (Auto) 1.15 H Eos # (Auto) 0.07 Baso # (Auto) 0.01 Immature Gran # (Auto) 0.08 H Sodium 131 L 131 L Potassium 3.6 3.7 Chloride 95 L 98 Carbon Dioxide 26 24 Anion Gap 10 9 BUN 38 H 32 H Creatinine 1.62 H D 1.19 D Est Cr Clr Drug Dosing 37.7 52.5 Est GFR ( Amer) 45.5 66.0 Est GFR (Non-Af Amer) 39.2 56.9 BUN/Creatinine Ratio 23.5 H 26.9 H Glucose 111 H 113 H Calcium 8.7 8.4 L Magnesium 2.1 2.3 Total Bilirubin 0.4 AST 12 L ALT 17 Alkaline Phosphatase 72 Total Protein 5.9 L Albumin 3.7 Globulin 2.2 L Albumin/Globulin Ratio 1.7 PG Care Time/CCT Total # of Minutes Spent Total Time Spent with Patient: Total time spent is greater than 50% in coordination of care (as documented) at patient's floor/unit and/or counseling patient: Coding Level of Care Code 29257 Subseq Hosp Care Lvl 2 Diagnoses Paroxysmal A-fib I48.0 CAD (coronary artery disease) I25.10 NICM (nonischemic cardiomyopathy) I42.8 Hypertension I10
[2021-12-29] MEDS: oxyCODONE/ACETAMINOPHEN 5mg/325mg TAB PO PRN (13:35)
--- NOTE | 2021-12-29 16:26 | XRay Report ---
KUB CLINICAL HISTORY: Postoperative abdominal distention. FINDINGS: 2 AP supine abdominal radiographs are compared to study dated 12/24/2021 and correlated wit h abdominal CT dated 12/10/2021. There is diffuse gaseous distention of the small bowel. Small bowel l oops measure up to 4.2 cm diameter. There is a paucity of gas within the colon. Suture material proje cts over the pelvis. No intraperitoneal free air is clearly seen on these supine images. There are no abnormal abdominal calcifications. Midline skin clips project over the pelvis. The skeletal structur es are osteopenic and appear intact. There is lumbosacral spondylosis. IMPRESSION: There is significant persistent gaseous distention of the small bowel with a paucity of c olonic gas. This could represent bowel obstruction versus ileus. Obstruction is somewhat favored give n the lack of colonic gas. Clinical correlation will be essential. Electronically signed by: Manuel Rene M.D. 12/29/2021 4:24 PM
--- NOTE | 2021-12-29 16:47 | Communication Note ---
Date of Service: December 29, 2021 Patient had a KUB ordered by surgery which looks most consistent with a small bowel obstruction or least a significant ileus subsequently his oral medications will be held at this time most important is the transition to amiodarone which was supposed to occur at 1500 this will be stopped patient may remain on an amiodarone drip. Likewise his metoprolol which is p.o. will be converted to IV metoprolol 5 every 6 at this time with caution with his lower blood pressure.
[2021-12-29] MEDS ORDERED: AMIODARONE 200 MG TAB PO SCH (17:00)
[2021-12-29] MEDS: METOPROLOL TARTRATE 1 MG/ML VIAL IV SCH (17:39)
[2021-12-29] MEDS ORDERED: Nursing to Pharmacy Communication SCH (19:30)
[2021-12-29] MEDS: SODIUM CHLORIDE 0.9% 1000ML 1,000 ML IV SCH (19:31)
[2021-12-29] MEDS: SODIUM CHLORIDE 0.9% 500 ML IV SCH ×4 (19:32→22:02)
--- NOTE | 2021-12-29 19:46 | Communication Note ---
Date of Service: December 29, 2021 This patient was noted to have nausea and vomiting on 2 occasions throughout the day. RN notified general surgery attending who ordered a KUB. This study was reviewed and showed the patient had a small bowel obstruction versus an ileus. It is also noted that the patient's ostomy which previously had a large amount of output now has decreased output. Because of these issues, Dr. Calle ordered for NG tube to be placed. The patient has initially refused this modality. I visited with the patient at the bedside and he notes at the present time he feels comfortable. He says his abdomen is not overly painful but is somewhat sore. He currently does not feel nauseated. Due to his nausea and vomiting and findings on KUB I did recommend to the patient that we proceed with NG tube placement. Again, the patient has refused this modality. I did discuss with the patient that as he is comfortable for the present time we can hold on placing an NG tube, but if he has any further episodes of emesis the topic of NG tube will need to be reconsidered. Having said this, the patient notes that if he does have further emesis he would be agreeable to NG tube at that time. I discussed with the nurse will be attending to the patient tonight note noted that if the patient has further emesis an NG tube is to be placed. The patient's diet has been back down to n.p.o. status. He is also receiving intravenous fluids.
[2021-12-30] MEDS: AMIODARONE / D5W 360 MG/200 ML BAG IV SCH ×2 (01:00→14:54)
[2021-12-30] MEDS: METOPROLOL TARTRATE 1 MG/ML VIAL IV SCH ×4 (01:30→20:51)
[2021-12-30] MEDS: SODIUM CHLORIDE 0.9% 500 ML IV SCH (07:48)
[2021-12-30 08:00] LABS: Hematocrit (blood only) 40.1 % (40.1-51.0); Hemoglobin 13.1 g/dl (14.0-18.0); Mean Corpuscular Hemoglobin 28.6 pg (25.0-34.0); Mean Corpuscular Hgb Conc 32.7 g/dL (32.0-36.0); Mean Corpuscular Volume 87.6 fL (80.0-100.0); Mean Platelet Volume 9.5 fL (9.4-12.4); Platelet Count 371 K/uL (130-400); RDW Coefficient of Variation 16.7 % (11.5-14.5); RDW Standard Deviation 53.5 fL (36.4-46.3); Red Blood Count 4.58 M/uL (4.63-6.08); White Blood Count 9.86 K/ul (4.8-10.8)
[2021-12-30] MEDS: SODIUM CHLORIDE 0.9% 1000ML 1,000 ML IV SCH (08:04)
[2021-12-30] MEDS: PANTOprazole 40 MG in SYRINGE 0 ML IV SCH ×2 (08:04→20:51)
[2021-12-30] MEDS: NICOTINE 7 MG/24 HR TDSY TD SCH (08:05)
[2021-12-30 09:16] LABS: BUN Creatinine Ratio 27.1 (10-20); Calcium 8.6 mg/dl (8.5-10.1); Est GFR (African American) 85.6 ml/min; Est GFR (Non-African American) 73.8 ml/min; Magnesium 2.2 mg/dl (1.7-2.4); Potassium 4.7 mmol/L (3.5-5.1)
--- NOTE | 2021-12-30 10:39 | Surgery Progress Note ---
Date of Service December 30, 2021 Assessment & Plan (1) Colon cancer: Plan: Events noted from over weekend WBC 9.8, Hbg 13, Cr down to 0.9 NGT replaced this AM for emesis x2...he is currently feeling better, no pain/nausea Ostomy with 125cc output over last shift Continue NPO with NGT + IVF for now OOB as tolerates Appreciate hospitalists and cardiology assistance with patient Admission and Anticipated Discharge Date Admission Date: December 18, 2021 Supervising Physician Co-Signing Physician Notes Patient seen and examined, labs and imaging reviewed as well as events over the weekend, agree with above. Status post robot-assisted LAR with low colorectal anastomosis and diverting loop ileostomy. On Thursday he was having good ostomy output and tolerating regular diet. On Thursday he had high output and there was some concern for electrolyte abnormalities or dehydration. On Thursday he had decreased ostomy output and began feeling bloated and had nausea overnight with a KUB that showed an ileus. An NG tube was inserted and he has had relief. On exam he is afebrile stable vitals. His abdomen is soft, mildly distended, nontender. Ostomy is slightly edematous but patent with some fluid in the bag. Incision without infection. Labs unremarkable. We will start PPN, continue NG tube to low remittent wall suction for now. May need contrast study in the next day or 2. Subjective Patient feeling better with NGT in place. Currently denies abdominal pain or nausea. Physical Exam Physical Exam: awake/alert, no distress Respiratory: normal respiratory effort Gastrointestinal (Abdomen): Inspection/Auscultation: + abdomen distended and + abdominal surgical incision (c/d/i) Percussion/Palpation: abdomen soft; abdomen nontender ostomy viable Results & Data ([facility]) Vital Signs (Past 12 Hours) Vital Signs Temp Pulse Pulse Resp BP BP BP 12/30/21 07:51 36.4 C L 60 18 104/62 12/30/21 07:02 36.6 C 60 18 96/57 L 12/30/21 06:07 68 107/61 12/30/21 02:59 37.0 C 59 L 16 103/50 L 12/30/21 01:30 63 112/59 L 12/30/21 01:37 62 12/29/21 23:10 37.1 C 59 L 18 113/64 Pulse Ox O2 Del Method 12/30/21 07:51 93 Room Air 12/30/21 07:02 93 Room Air 12/30/21 06:07 12/30/21 02:59 92 Room Air 12/30/21 01:30 12/30/21 01:37 12/29/21 23:10 93 Room Air PG Care Time/CCT Total # of Minutes Spent Total Time Spent with Patient: Total time spent is greater than 50% in coordination of care (as documented) at patient's floor/unit and/or counseling patient: Coding Level of Care Code None Diagnoses Colon cancer C18.9
--- NOTE | 2021-12-30 12:12 | Hospitalist Progress Note ---
Date of Service December 30, 2021 Assessment & Plan (1) Atrial fibrillation with RVR: Plan: Recurrent atrial fibrillation RVR. on amiodarone drip , and iv metoprolol given npo status eliquis 5mg BID. on hold mag/K wnl. TSH wnl cont to monitor on tele. most recent echo - done as outpatient in [place] - EF 45-50%. (2) Adenocarcinoma of sigmoid colon: Plan: s/p 12/28/21 Robotic Laparoscopic assisted low anterior resection with mobilization of splenic flexure and end-to-end anastomosis, diverting loop ileostomy by Dr Huff. vomiting overnight 12/29-, ngt replaced, re started on ivf appreciate Gen Surgery oversight (3) Chronic systolic CHF (congestive heart failure): Plan: may have been mildly decompensated in the setting of IV hydration, his surgery, rapid a.fib, etc. received lasix 20mg po x 1. resolved acute kidney injury Diuretics currently on hold cont BB. Stopped lisinopril with acute kidney injury on top of chronic kidney disease stage III most recent echo - 07/2021 in [place] - EF 45-50%, grade 1 diastolic dysfunction, no valvular dysfunction. normal LV wall motion. (4) CAD (coronary artery disease): Plan: 03/2020 - [facility] cardiac cath minimal nonobstructive lesions in LAD and LCx RCA with a 50-60% lesion only appreciate cardiology consultation Demand ischemia elevated troponin (peak was 9460) thought NOT due to acute coronary syndrome but demand ischemia in setting of rapid a.fib has had NO ischemic symptoms during this stay (5) Hyponatremia: Plan: resolving (6) Hypertension: Plan: BPs satisfactory at this time. Cont BB holding lisinopril and Aldactone (7) Hyperlipidemia: Plan: statin on hold (8) Alcohol abuse: Plan: no signs of etoh withdrawal at this time (9) Tobacco use: Plan: nicoderm patch 7mg/day chromosomal disorders counselor to quit smoking (10) COPD (chronic obstructive pulmonary disease): Plan: without exacerbation at this time albuterol prn Plan continued discussion about depression, pt does not want antidepressant Admission and Anticipated Discharge Date Admission Date: December 18, 2021 Subjective Vomited x 2 last pm, now Patient feeling better with NGT in place. Currently denies abdominal pain or nausea. did drain large amount, osteomy output lessening changed meds to iv for afib control stopped anticoagulation in case procedure would be required Review of Systems Review of Systems: Mild distress and fatigue no headache, no visual changes no speech or swallowing issues no chest pain, pressure or palpitations no shortness of breath, cough or wheezes mild abdominal pain, nausea and vomiting resolved with NGT no dysuria, hematuria or frequency no focal joint pain or swelling no back pain, CVA tenderness or radicular pain no bruising, bleeding or rashes no focal signs of weakness or numbness or altered sensation complaints of depression. Offered antidepressant patient refuses Physical Exam Physical Exam: The patient appeared stable Vital signs as documented. Lungs are clear to auscultation and appear unlabored Cardiac exam, initially tachycardia has broke into normal sinus rhythm and regular rhythm.. No murmurs, rubs or gallops. Abdominal exam reveals normal bowel sounds, soft , ngt replaced, decreased ileostomy output Extremities are nonedematous and both pedal pulses are normal. Neurologic exam is alert and oriented, no focal loss of strength or sensation Skin is without bruises or rashes Psychologically is with concerns for depression. Results & Data Results & Data ([facility]) Vital Signs (Past 12 Hours) Vital Signs Temp Pulse Pulse Resp BP BP BP 12/30/21 11:48 98.4 F 69 19 114/60 12/30/21 07:51 97.5 F L 60 18 104/62 12/30/21 07:02 97.9 F 60 18 96/57 L 12/30/21 06:07 68 107/61 12/30/21 02:59 98.6 F 59 L 16 103/50 L 12/30/21 01:30 63 112/59 L 12/30/21 01:37 62 Pulse Ox O2 Del Method 12/30/21 11:48 94 Room Air 12/30/21 07:51 93 Room Air 12/30/21 07:02 93 Room Air 12/30/21 06:07 12/30/21 02:59 92 Room Air 12/30/21 01:30 12/30/21 01:37 PG Care Time/CCT Total # of Minutes Spent Total Time Spent with Patient: Total time spent is greater than 50% in coordination of care (as documented) at patient's floor/unit and/or counseling patient: Coding Level of Care Code 48336 Subseq Hosp Care Lvl 2 Diagnoses Atrial fibrillation with RVR I48.91 Adenocarcinoma of sigmoid colon C18.7 Chronic systolic CHF (congestive heart failure) I50.22 CAD (coronary artery disease) I25.10 Hyponatremia E87.1 Hypertension I10 Hyperlipidemia E78.5 Alcohol abuse F10.10 Tobacco use Z72.0 COPD (chronic obstructive pulmonary disease) J44.9
[2021-12-30] MEDS ORDERED: TPN/PPN CONSULT PHARMACY SCH (12:54)
--- NOTE | 2021-12-30 14:23 | Pharmacy Report ---
Pharmacy PN Initial Consult - Date of Service December 30, 2021 - Scope Pharmacy has been consulted to manage parenteral nutrition orders and order appropriate labs. As part of the Nutrition Support Team guidelines, pharmacy will work in conjunction with dietary when determining the patients caloric needs. - Subjective The patient is a 81 year old M admitted on 12/18/21 17:08 for COLON CANCER. Patient is to receive parenteral nutrition for [INDICATION]. Pertinent PMH: - Objective Height: 6 ft Weight: 77.3 kg Diet: NPO Vascular Access:: two 20g peripheral lines Intake & Output (Last 24Hrs): Intake & Output 12/28/21 12/29/21 12/30/21 12/31/21 06:59 06:59 06:59 06:59 Intake Total 1010 / 1010 5236.762 / 5236.762 1631.215 / 1631.215 941.25 / 941.25 Output Total 4450 / 4450 3725 / 3725 3475 / 3475 Balance -3440 / -3440 1511.762 / 1511.762 -1843.785 / -1843.785 941.25 / 941.25 Weight 74.6 kg 76.2 kg 77.3 kg Additional Fluid Losses/Gains:: NG tube placed for NV (950 out thus far today) Laboratory Data (Last 24 Hrs):: 12/30/21 07:39 Sodium 134 L Potassium 4.7 D Chloride 101 Carbon Dioxide 26 BUN 26 H Creatinine 0.96 Glucose 111 H Calcium 8.6 Phosphorus 3.0 Magnesium 2.2 Recent Pertinent Medications:: Amiodarone gtt mixed in D5W (provides 400mL D5W per day) NS maint IVF @75cc/hr Nutrition Assessment:: Please refer to the Notes section of the EMR for the 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 - Assessment Admitted 12/18 for adenocarcinoma sigmoid colon. He is s/p resection with di verting loop ileostomy. NGT placed for NV. Pertinent PMH: h/o NICM (EF ~ 45%), a fib RVR, hyperlipidemia, h/o alcohol abuse Per Provider's physical exam: "lungs clear, no peripheral edema". No recent CXR. Given patient only has peripheral access, will initial PPN cautiously given h/o cardiomyopathy. Pt has mild hyponatremia which can be made worse by NG suction in combo with low Na PPN. PPN calories and electrolyte content are limited by the osmolarity constraints of peripheral IV administration. Electrolytes reviewed, no significant abnormalities other than mild hyponatremia noted today. - Plan For day 1 of PN administration, the following will be ordered: Macronutrients Amino acids 77 grams/day Dextrose 90 grams/day Lipids 0 grams/day Micronutrients Combined electrolytes 40 mL - contains 35 mEq Na, 20 meq K, 4.5 mEq Ca, 5 mEq Mg, 35 mEq Cl, 29.5 mEq acetate per 20 mL Sodium phosphate 27 MMol Sodium chloride 30 mEq Sodium acetate 34 mEq Potassium phosphate 0 mMol Potassium chloride 30 mEq Potassium acetate 0 mEq Magnesium sulfate 0 mEq Calcium gluconate 0 mEq Multivitamins 10 mL Trace Elements 1 mL Additional additives: Thiamine 200mg, Folic Acid 1mg Total volume 1906.2 mL to be infused over 24 hrs will provide 612 kcal/day Final osmolarity 899.7 mOsm/L (maximum for PPN is 900 mOsm/L) Labs to be ordered per PN order protocol Pharmacy will follow and adjust parenteral nutrition orders on a daily basis. Thank you.
[2021-12-30] MEDS ORDERED: [UNRECOGNIZED DRUG - REMARK] ONE (16:00)
[2021-12-30] MEDS ORDERED: D5W IV SCH (16:00)
[2021-12-30] MEDS ORDERED: AMINO ACIDS 4.25% IV SCH (16:00)
[2021-12-30] MEDS ORDERED: PERIPHERAL TPN IV SCH (16:00)
[2021-12-31] MEDS: AMIODARONE / D5W 360 MG/200 ML BAG IV SCH ×2 (03:50→14:25)
[2021-12-31] MEDS: METOPROLOL TARTRATE 1 MG/ML VIAL IV SCH ×3 (05:48→22:58)
[2021-12-31 07:15] LABS: Hematocrit (blood only) 36.2 % (40.1-51.0); Hemoglobin 11.7 g/dl (14.0-18.0); Mean Corpuscular Hemoglobin 28.3 pg (25.0-34.0); Mean Corpuscular Hgb Conc 32.3 g/dL (32.0-36.0); Mean Corpuscular Volume 87.7 fL (80.0-100.0); Mean Platelet Volume 9.5 fL (9.4-12.4); Platelet Count 314 K/uL (130-400); RDW Coefficient of Variation 16.6 % (11.5-14.5); RDW Standard Deviation 53.9 fL (36.4-46.3); Red Blood Count 4.13 M/uL (4.63-6.08); White Blood Count 7.41 K/ul (4.8-10.8)
[2021-12-31 07:46] LABS: BUN Creatinine Ratio 30.6 (10-20); Calcium 8.3 mg/dl (8.5-10.1); Creatinine Clr Calc Pharmacy 74.7 ml/min; Est GFR (African American) 94.7 ml/min; Est GFR (Non-African American) 81.7 ml/min; Magnesium 2.2 mg/dl (1.7-2.4)
[2021-12-31] MEDS: NICOTINE 7 MG/24 HR TDSY TD SCH (08:57)
[2021-12-31] MEDS: PANTOprazole 40 MG in SYRINGE 0 ML IV SCH ×2 (08:58→20:36)
--- NOTE | 2021-12-31 09:51 | Cardiology Progress Note ---
Date of Service December 31, 2021 Assessment & Plan (1) Paroxysmal A-fib: Plan: -known since March 2020. -Eliquis and metoprolol succinate on hold. -metoprolol succinate on hold, IV metoprolol tartrate q.8 hour. -remains in sinus rhythm on IV amiodarone. (2) CAD (coronary artery disease): Plan: -nonobstructive disease at cath, March 2020. -continue medical management. (3) NICM (nonischemic cardiomyopathy): Plan: -LVEF of 45% on echocardiogram, July 2021 -metoprolol succinate and spironolactone on hold. -lisinopril currently on hold. (4) Hypertension: Plan: -adequate control on current medications. Admission and Anticipated Discharge Date Admission Date: December 18, 2021 Subjective Patient is resting comfortably in bed without complaints of chest pain, dyspnea, or palpitations. Physical Exam Physical Exam: In general is well-developed well-nourished white male no acute distress. HEENT exam notes an NG tube in place. Neck is supple with full carotid upstrokes. No carotid bruits. Jugular is pressure is flat at 90. There is no thyromegaly. Cardiovascular exam reveals a regular rhythm with a normal S1-S2. Heart sounds are distant. No obvious murmurs. Lungs are clear without rales, rhonchi, or wheezes. Abdomen is soft. Extremities reveal intact radial artery pulses bilaterally. There is no peripheral edema. Results & Data ([facility]) Vital Signs (Past 12 Hours) Vital Signs Temp Pulse Pulse Pulse Resp BP BP 12/31/21 07:52 55 L 12/31/21 07:26 37.0 C 60 16 12/31/21 05:48 68 124/65 12/31/21 03:46 36.9 C 62 20 117/60 12/30/21 22:18 59 L 12/30/21 23:28 36.5 C 60 18 106/59 L BP Pulse Ox O2 Del Method 12/31/21 07:52 12/31/21 07:26 105/58 L 93 Room Air 12/31/21 05:48 12/31/21 03:46 93 Room Air 12/30/21 22:18 12/30/21 23:28 93 Room Air PG Care Time/CCT Total # of Minutes Spent Total Time Spent with Patient: Total time spent is greater than 50% in coordination of care (as documented) at patient's floor/unit and/or counseling patient: Coding Level of Care Code 92509 Subseq Hosp Care Lvl 3 Diagnoses Paroxysmal A-fib I48.0 CAD (coronary artery disease) I25.10 NICM (nonischemic cardiomyopathy) I42.8 Hypertension I10
--- NOTE | 2021-12-31 10:44 | XRay Report ---
KUB HISTORY: Follow up study in a patient with abdominal distention and bowel dilation ileus COMPARISON: KUB 12/29/2021, CT 12/10/2021 FINDINGS: Surgical suture material within the midline pelvis with skin cedrick. Distal tip of enteric tube projects over the gastric fundus. There are persistent dilated air-filled loops of small bowel measuring up to approximately 4.1 cm overall appearing similar to mildly improved from prior. Air-[place] led loops of large bowel have increased from prior. No renal calculi. No ureteral calculi. No pneumop eritoneum or pneumatosis. No fracture. IMPRESSION: 1. Distal tip of enteric tube projects over the stomach. 2. Air-filled loops of large and small bowel with mildly improved small bowel distention. Ileus versu s obstruction considered. Continued follow-up is needed. ACT 112: Negative or not required by law. The above report was generated using voice recognition software. It may contain grammatical, syntax o r spelling errors. Electronically signed by: Guerrero Morris M.D. 12/31/2021 10:43 AM
--- NOTE | 2021-12-31 11:33 | Surgery Progress Note ---
Date of Service December 31, 2021 Assessment & Plan (1) History of colon surgery: Plan: POD #13 robotic LAR with DLI. Over the weekend he developed an ileus which appears to be resolving Continue NG tube to low intermittent wall suction Repeat KUB in a.m. Hopeful for clamp trial and removal of NG tube with advance of diet [place] can be removed Appreciate medicine and cardiology assistance with this patient continue ppn Admission and Anticipated Discharge Date Admission Date: December 18, 2021 Subjective POD #13 robotic assisted LAR with diverting loop ileostomy. He is feeling better than he did yesterday, less bloated. NG tube output appears to be decreasing. There is some air and succus in his ostomy. Physical Exam Constitutional: WD/WN, vitals as above Gastrointestinal (Abdomen): normal bowel sounds, soft, nontender, no hepatosplenomegaly Inspection/Auscultation: + abdominal surgical incision (No infection) Ileostomy slightly edematous, air and succus in bag. Results & Data ([facility]) Vital Signs (Past 12 Hours) Vital Signs Temp Pulse Pulse Pulse Resp BP BP 12/31/21 11:07 36.7 C 63 18 12/31/21 07:52 55 L 12/31/21 07:26 37.0 C 60 16 12/31/21 05:48 68 124/65 12/31/21 03:46 36.9 C 62 20 117/60 BP Pulse Ox O2 Del Method 12/31/21 11:07 110/57 L 92 Room Air 12/31/21 07:52 12/31/21 07:26 105/58 L 93 Room Air 12/31/21 05:48 12/31/21 03:46 93 Room Air Laboratory Results Laboratory Results - last 24 hr 12/30/21 12/31/21 12/31/21 18:09 00:04 06:13 WBC RBC Hgb Hct MCV MCH MCHC RDW Std Deviation RDW Coeff of Tonya Plt Count MPV Sodium Potassium Chloride Carbon Dioxide Anion Gap BUN Creatinine Est Cr Clr Drug Dosing Est GFR ( Amer) Est GFR (Non-Af Amer) BUN/Creatinine Ratio Glucose POC Glucose 91 115 H 105 H Calcium Phosphorus Magnesium 12/31/21 12/31/21 06:24 06:24 WBC 7.41 RBC 4.13 L Hgb 11.7 L Hct 36.2 L MCV 87.7 MCH 28.3 MCHC 32.3 RDW Std Deviation 53.9 H RDW Coeff of Tonya 16.6 H Plt Count 314 MPV 9.5 Sodium 134 L Potassium 4.0 Chloride 102 Carbon Dioxide 27 Anion Gap 5 BUN 26 H Creatinine 0.85 Est Cr Clr Drug Dosing 74.7 Est GFR ( Amer) 94.7 Est GFR (Non-Af Amer) 81.7 BUN/Creatinine Ratio 30.6 H Glucose 113 H POC Glucose Calcium 8.3 L Phosphorus 3.0 Magnesium 2.2 Diagnostic Findings UB HISTORY: Follow up study in a patient with abdominal distention and bowel dilation ileus COMPARISON: KUB 12/29/2021, CT 12/10/2021 FINDINGS: Surgical suture material within the midline pelvis with skin cedrick. Distal tip of enteric tube projects over the gastric fundus. There are persistent dilated air-filled loops of small bowel measuring up to approximately 4.1 cm overall appearing similar to mildly improved from prior. Air-filled loops of large bowel have increased from prior. No renal calculi. No ureteral calculi. No pneumoperitoneum or pneumatosis. No fracture. IMPRESSION: 1. Distal tip of enteric tube projects over the stomach. 2. Air-filled loops of large and small bowel with mildly improved small bowel distention. Ileus versus obstruction considered. Continued follow-up is needed. PG Care Time/CCT Total # of Minutes Spent Total Time Spent with Patient: Total time spent is greater than 50% in coordination of care (as documented) at patient's floor/unit and/or counseling patient: Coding Level of Care Code None Diagnoses History of colon surgery Z98.890
[2021-12-31] MEDS ORDERED: DEXTROSE 10% 1,000 ML IV PRN (12:22)
[2021-12-31] MEDS ORDERED: CLINOLIPID 20% IV FAT EMULSION 250 ML IV SCH (16:00)
[2021-12-31] MEDS ORDERED: D5W IV SCH (16:00)
[2021-12-31] MEDS ORDERED: PERIPHERAL TPN IV SCH (16:00)
[2021-12-31] MEDS ORDERED: AMINO ACIDS 4.25% IV SCH (16:00)
[2021-12-31] MEDS: CHLORASEPTIC 1.4% SOLN 180 ML BTL MT PRN ×2 (17:42→20:00)
--- NOTE | 2021-12-31 17:53 | Hospitalist Progress Note ---
Date of Service December 31, 2021 Assessment & Plan (1) Atrial fibrillation with RVR: Plan: recurrent episodes throughout his stay requiring IV/PO metoprolol, IV cardizem, and finally amiodarone for rhythm control. remains on amiodarone drip at this time. continue such until able to take pills reliably and NG tube has been removed. cont metoprolol IV - since BPs are soft will reduce dose to 2.5mg q8h. most recent echo - done as outpatient in [place] - EF 45-50%. (2) Adenocarcinoma of sigmoid colon: Plan: POD #13 s/p Robotic Laparoscopic assisted low anterior resection with mobilization of splenic flexure and end-to-end anastomosis, diverting loop ileostomy by Dr Huff. remains NPO NG tube in place for recurrent ileus cont IV fluids (PPN) defer management to gen surg (3) Chronic systolic CHF (congestive heart failure): Plan: compensated cont IV BB no diuretics at this time most recent echo - 07/2021 in [place] - EF 45-50%, grade 1 diastolic dysfunction, no valvular dysfunction. normal LV wall motion. (4) Hyponatremia: Plan: 134 today and stable. bmp am. (5) Hypertension: Plan: BPs satisfactory at this time. Cont BB but reduce dose to 2.5mg q8h. (6) Hyperlipidemia: Plan: statin on hold (7) Alcohol abuse: Plan: has had NO signs of etoh withdrawal at any point during the stay (8) Tobacco use: Plan: nicoderm patch 7mg/day (9) CAD (coronary artery disease): Plan: [facility]/2020 [facility] minimal nonobstructive lesions in LAD and LCx RCA with a 50-60% lesion only appreciate cardiology consultation elevated troponin (peak was 9460) earlier this admission thought NOT due to acute coronary syndrome but demand ischemia in setting of rapid a.fib has had NO ischemic symptoms during this stay (10) COPD (chronic obstructive pulmonary disease): Plan: without exacerbation at this time albuterol prn (11) Demand ischemia of myocardium: Plan: peak HS troponin 9463 Plan pt's daughter updated at bedside today DVT proph - while eliquis is on hold will add lovenox 40mg daily Admission and Anticipated Discharge Date Admission Date: December 18, 2021 Subjective tele overnight - NSR, no a.fib patient's daughter was at bedside NG tube remains - was placed over the weekend due to ileus and GI intolerance he is putting out liquid stool via his ostomy now and NG tube drainage has slowed he denies any abdominal pain denies nausea no dyspnea he is bored, and is getting depressed Review of Systems Review of Systems: gen - no fevers cv - no cp, no orthopnea pulm - no cough GI - denies pain HENT - c/o sore throat Physical Exam Physical Exam: gen - NAD, resting in bed comfortably nose - NG tube in place neck - no JVD mouth - MMM, no lesions heart - RRR, s1 s2, no murmur lungs - CTA b/l; no rales or wheezes abd - distension improved from my prior exams; BS+; incisions clean, ostomy right side of abdomen with liquid stool ext - no edema, pulses 2+ b/l psych - a/o x 3; flat affect Results & Data Results & Data ([facility]) Vital Signs (Past 12 Hours) Vital Signs Temp Pulse Pulse Resp BP Pulse Ox O2 Del Method 12/31/21 16:00 66 12/31/21 15:33 36.9 C 60 17 112/58 L 94 Room Air 12/31/21 14:27 63 12/31/21 11:07 36.7 C 63 18 110/57 L 92 Room Air 12/31/21 07:52 55 L 12/31/21 07:26 37.0 C 60 16 105/58 L 93 Room Air Laboratory Results Laboratory Results - last 24 hr 12/30/21 12/31/21 12/31/21 18:09 00:04 06:13 WBC RBC Hgb Hct MCV MCH MCHC RDW Std Deviation RDW Coeff of Tonya Plt Count MPV Sodium Potassium Chloride Carbon Dioxide Anion Gap BUN Creatinine Est Cr Clr Drug Dosing Est GFR ( Amer) Est GFR (Non-Af Amer) BUN/Creatinine Ratio Glucose POC Glucose 91 115 H 105 H Calcium Phosphorus Magnesium 12/31/21 12/31/21 12/31/21 06:24 06:24 11:51 WBC 7.41 RBC 4.13 L Hgb 11.7 L Hct 36.2 L MCV 87.7 MCH 28.3 MCHC 32.3 RDW Std Deviation 53.9 H RDW Coeff of Tonya 16.6 H Plt Count 314 MPV 9.5 Sodium 134 L Potassium 4.0 Chloride 102 Carbon Dioxide 27 Anion Gap 5 BUN 26 H Creatinine 0.85 Est Cr Clr Drug Dosing 74.7 Est GFR ( Amer) 94.7 Est GFR (Non-Af Amer) 81.7 BUN/Creatinine Ratio 30.6 H Glucose 113 H POC Glucose 120 H Calcium 8.3 L Phosphorus 3.0 Magnesium 2.2 12/31/21 17:51 WBC RBC Hgb Hct MCV MCH MCHC RDW Std Deviation RDW Coeff of Tonya Plt Count MPV Sodium Potassium Chloride Carbon Dioxide Anion Gap BUN Creatinine Est Cr Clr Drug Dosing Est GFR ( Amer) Est GFR (Non-Af Amer) BUN/Creatinine Ratio Glucose POC Glucose 110 H Calcium Phosphorus Magnesium PG Care Time/CCT Total # of Minutes Spent Total Time Spent with Patient: Total time spent is greater than 50% in coordination of care (as documented) at patient's floor/unit and/or counseling patient: Coding Level of Care Code 12929 Subseq Hosp Care Lvl 2 Diagnoses Atrial fibrillation with RVR I48.91 Adenocarcinoma of sigmoid colon C18.7 Chronic systolic CHF (congestive heart failure) I50.22 Hyponatremia E87.1 Hypertension I10 Hyperlipidemia E78.5 Alcohol abuse F10.10 Tobacco use Z72.0 CAD (coronary artery disease) I25.10 COPD (chronic obstructive pulmonary disease) J44.9 Demand ischemia of myocardium I24.8
[2021-12-31] MEDS ORDERED: ENOXAPARIN INJ 40 MG/0.4 ML SYR SQ ONE (17:55)
[2022-01-01] MEDS: AMIODARONE / D5W 360 MG/200 ML BAG IV SCH ×2 (02:13→14:07)
[2022-01-01] MEDS: METOPROLOL TARTRATE 1 MG/ML VIAL IV SCH ×3 (05:53→22:04)
[2022-01-01 08:12] LABS: Hematocrit (blood only) 35.9 % (40.1-51.0); Hemoglobin 11.7 g/dl (14.0-18.0); Mean Corpuscular Hemoglobin 28.2 pg (25.0-34.0); Mean Corpuscular Hgb Conc 32.6 g/dL (32.0-36.0); Mean Corpuscular Volume 86.5 fL (80.0-100.0); Mean Platelet Volume 9.4 fL (9.4-12.4); Platelet Count 313 K/uL (130-400); RDW Coefficient of Variation 16.6 % (11.5-14.5); RDW Standard Deviation 53.1 fL (36.4-46.3); Red Blood Count 4.15 M/uL (4.63-6.08); White Blood Count 7.87 K/ul (4.8-10.8)
--- NOTE | 2022-01-01 08:32 | Surgery Progress Note ---
Date of Service January 01, 2022 Assessment & Plan (1) History of colon surgery: Plan: POD #14 robotic LAR with DLI. Over the weekend he developed an ileus which appears to be resolving Continue NG tube to low intermittent wall suction Awaiting KUB, if better than clamp trial, if no improvement may order contrasted study Appreciate medicine and cardiology assistance with this patient continue ppn, if needs longer will get picc and change to TPN Admission and Anticipated Discharge Date Admission Date: December 18, 2021 Subjective POD #14 robotic assisted LAR with diverting loop ileostomy. Continues to feel better, no pain, decreased bloating. NG tube output continues to be low. There is some air and succus in his ostomy. Physical Exam Constitutional: WD/WN, vitals as above Gastrointestinal (Abdomen): normal bowel sounds, soft, nontender, no hepatosplenomegaly Inspection/Auscultation: + abdominal surgical incision (No infection, steri's improved) Results & Data ([facility]) Vital Signs (Past 12 Hours) Vital Signs Temp Pulse Pulse Resp BP Pulse Ox O2 Del Method 01/01/22 07:00 59 L 01/01/22 05:53 55 L 01/01/22 02:45 36.5 C 67 20 127/67 94 Room Air 12/31/21 22:58 66 12/31/21 22:56 37.1 C 66 126/66 93 Room Air Laboratory Results Laboratory Results - last 24 hr 12/31/21 12/31/21 12/31/21 11:51 17:51 23:05 WBC RBC Hgb Hct MCV MCH MCHC RDW Std Deviation RDW Coeff of Tonya Plt Count MPV Sodium Potassium Chloride Carbon Dioxide Anion Gap BUN Creatinine Est Cr Clr Drug Dosing Est GFR ( Amer) Est GFR (Non-Af Amer) BUN/Creatinine Ratio Glucose POC Glucose 120 H 110 H 105 H Calcium Phosphorus Magnesium 01/01/22 01/01/22 01/01/22 06:02 07:57 07:57 WBC 7.87 RBC 4.15 L Hgb 11.7 L Hct 35.9 L MCV 86.5 MCH 28.2 MCHC 32.6 RDW Std Deviation 53.1 H RDW Coeff of Tonya 16.6 H Plt Count 313 MPV 9.4 Sodium Pending Potassium Pending Chloride Pending Carbon Dioxide Pending Anion Gap Pending BUN Pending Creatinine Pending Est Cr Clr Drug Dosing Pending Est GFR ( Amer) Pending Est GFR (Non-Af Amer) Pending BUN/Creatinine Ratio Pending Glucose Pending POC Glucose 104 H Calcium Pending Phosphorus Pending Magnesium Pending Diagnostic Findings kub pending PG Care Time/CCT Total # of Minutes Spent Total Time Spent with Patient: Total time spent is greater than 50% in coordination of care (as documented) at patient's floor/unit and/or counseling patient: Coding Level of Care Code None Diagnoses History of colon surgery Z98.890
[2022-01-01 08:34] LABS: BUN Creatinine Ratio 31.3 (10-20); Calcium 8.4 mg/dl (8.5-10.1); Creatinine Clr Calc Pharmacy 76.5 ml/min; Est GFR (African American) 95.6 ml/min; Est GFR (Non-African American) 82.5 ml/min; Magnesium 2.1 mg/dl (1.7-2.4); Phosphorus 4.1 mg/dl (2.5-4.9); Potassium 4.2 mmol/L (3.5-5.1)
[2022-01-01] MEDS: NICOTINE 7 MG/24 HR TDSY TD SCH (09:19)
[2022-01-01] MEDS: ENOXAPARIN INJ 40 MG/0.4 ML SYR SQ SCH (09:20)
[2022-01-01] MEDS: PANTOprazole 40 MG in SYRINGE 0 ML IV SCH ×2 (09:20→20:12)
--- NOTE | 2022-01-01 09:44 | XRay Report ---
XR KUB/Abdomen 1 view CLINICAL HISTORY: eval bowel/gas pattern TECHNIQUE: 1 view of the abdomen was obtained. Comparison: Comparison is made to abdomen radiograph 01/01/2022 FINDINGS: Enteric tube is in satisfactory position. Suture material is noted projecting within the pelvis jose alfredo tible bowel resection. Degenerative changes are seen in the visualized skeleton. Demonstration of gas -filled loops of small bowel, similar in extent to prior exam. IMPRESSION: Interval stability of gas dilated loops of small bowel compatible with postsurgical ileus versus obst ruction. Again noted is a paucity of colonic gas. ACT 112: Negative or not required by law. Electronically signed by: Santino Bocanegra M.D. 01/01/2022 9:42 AM
[2022-01-01] MEDS ORDERED: D5W IV SCH (16:00)
[2022-01-01] MEDS ORDERED: PERIPHERAL TPN IV SCH (16:00)
[2022-01-01] MEDS ORDERED: CLINOLIPID 20% IV FAT EMULSION 250 ML IV SCH (16:00)
[2022-01-01] MEDS ORDERED: AMINO ACIDS 4.25% IV SCH (16:00)
[2022-01-01] MEDS ORDERED: OPTIRAY 350 100ml IV ONE (16:25)
--- NOTE | 2022-01-01 17:17 | CT Scan Report ---
CT OF THE ABDOMEN AND PELVIS WITH CONTRAST CLINICAL HISTORY: pod#14 LAR w/ diverting loop ileostomy. ileus/sbo COMPARISON STUDY: CT of the abdomen and pelvis December 10, 2021 and KUB January 01, 2022. TECHNIQUE: Following IV administration of 87 mL of Optiray, axial images of the abdomen and pelvis we re obtained from the lung bases to the proximal femurs. Images were reviewed in the axial, sagittal, and coronal planes. IV contrast was administered without complication. Automated exposure control wa s utilized for the study. A dose lowering technique was utilized adhering to the principles of ALARA . Oral contrast was administered. In addition, rectal contrast was administered. CT DOSE: 614.01 mGycm FINDINGS: Tip of nasogastric tube is within the distal body of the stomach. Oral contrast reaches the proximal jejunum. The rectum and colon is well-opacified by rectal contrast. No contrast extravasati on at the colorectal anastomosis is noted to suggest leak. Mild adjacent stranding is expected in the early postoperative setting. There is no fluid collection to suggest an abscess. A small amount of a scites within the abdomen and pelvis is noted. There are postoperative findings consistent with low a nterior resection with right lower quadrant diverting ileostomy. The small bowel proximal to the ileo stomy is moderately dilated and fluid-filled. Transition point is at the abdominal wall for the ileos arturo, shown on axial image 310 of 546. As expected, the small bowel distal to the ileostomy is decomp ressed. No pneumatosis, free air or portal venous gas is present. Liver, spleen, adrenal glands and p ancreas are unremarkable. There is suspected mild multifocal scarring within the kidneys. There is no hydronephrosis. Left lateral bladder diverticulum is noted. There is a small amount of hyperdense ma terial within the diverticulum and the bladder. This may reflect contrast or small calculi however no calculi were shown on preoperative CT. Small bilateral inguinal hernias contain a small amount of ga s. This is likely postsurgical. IMPRESSION: Status post low anterior resection with right lower quadrant diverting loop ileostomy. Small bowel pr oximal to the ileostomy moderately dilated and fluid-filled with transition point at the abdominal wa ll ileostomy site. This results in a small bowel obstruction. Small amount of ascites. No fluid colle ction to suggest abscess. Intact colorectal anastomosis without contrast extravasation to suggest juaquin k. ACT 112: Negative or not required by law. Electronically signed by: Rocky Ewing M.D. 01/01/2022 5:15 PM
[2022-01-01] MEDS: FIRST - Mouthwash BLM 119 ML PO SCH ×2 (18:06→20:13)
--- NOTE | 2022-01-01 18:23 | Hospitalist Progress Note ---
Date of Service January 01, 2022 Assessment & Plan (1) Atrial fibrillation with RVR: Plan: recurrent episodes throughout his stay requiring IV/PO metoprolol, IV cardizem, and finally amiodarone for rhythm control. remains on amiodarone drip at this time due to NPO status. continue such until able to take pills reliably and NG tube has been removed. cont metoprolol IV 2.5mg q8h. most recent echo - done as outpatient in [place] - EF 45-50%. (2) Adenocarcinoma of sigmoid colon: Plan: POD #14 s/p Robotic Laparoscopic assisted low anterior resection with mobilization of splenic flexure and end-to-end anastomosis, diverting loop ileostomy by Dr Huff. remains NPO with NG tube in place due to ileus s/p CT a/p today - results pending defer management to gen surg (3) Chronic systolic CHF (congestive heart failure): Plan: remains compensated cont IV BB defer on diuretics at this time most recent echo - 07/2021 in [place] - EF 45-50%, grade 1 diastolic dysfunction, no valvular dysfunction. normal LV wall motion. (4) Hyponatremia: Plan: 134 again today and stable. bmp am. (5) Hypertension: Plan: BPs satisfactory at this time with low-dose lopressor 2.5mg IV q8h. (6) Hyperlipidemia: Plan: statin on hold (7) Alcohol abuse: Plan: has had NO signs of etoh withdrawal at any point during the stay (8) Tobacco use: Plan: cont nicoderm patch 7mg/day (9) CAD (coronary artery disease): Plan: 03/2020 - Counts include [facility] beds [facility] cardiac cath minimal nonobstructive lesions in LAD and LCx RCA with a 50-60% lesion only appreciate cardiology consultation elevated troponin (peak was 9460) earlier this admission thought NOT due to acute coronary syndrome but demand ischemia in setting of rapid a.fib has had NO ischemic symptoms during this stay (10) COPD (chronic obstructive pulmonary disease): Plan: without exacerbation at this time albuterol prn (11) Demand ischemia of myocardium: Plan: peak HS troponin 9463 Plan pt's daughter updated at bedside yesterday DVT proph - while daryl is on hold cont lovenox 40mg daily Admission and Anticipated Discharge Date Admission Date: December 18, 2021 Subjective patient just returned from CT a/p ordered by gen surg he continues with NG tube and NPO status ileostomy continues to drain stool hooked up to gravity bag he denies abd pain he is weak, sad, depressed denies any new complaints tele overnight - NSR remains on amiodarone drip Review of Systems Review of Systems: gen - no fever HENT - c/o ongoing sore throat; chloroseptic spray not helping cv - no cp, no orthopnea pulm - no dyspnea GI - no vomiting Physical Exam Physical Exam: gen - NAD, flat affect nose - NG tube in place neck - no JVD mouth - MMM, no lesions heart - RRR, s1 s2, no murmur lungs - CTA b/l; no rales or wheezes abd - distension the same as previous; BS+; incisions clean, ostomy right side of abdomen with liquid stool ext - no edema, pulses 2+ b/l psych - a/o x 3; flat affect Results & Data Results & Data ([facility]) Vital Signs (Past 12 Hours) Vital Signs Temp Pulse Pulse Pulse Resp BP Pulse Ox 01/01/22 17:16 65 01/01/22 15:23 36.6 C 63 18 111/60 96 01/01/22 14:06 66 01/01/22 08:00 01/01/22 11:07 37.0 C 71 20 111/66 96 01/01/22 07:00 59 L O2 Del Method 01/01/22 17:16 01/01/22 15:23 Room Air 01/01/22 14:06 01/01/22 08:00 Room Air 01/01/22 11:07 Room Air 01/01/22 07:00 Laboratory Results Laboratory Results - last 24 hr 12/31/21 01/01/22 01/01/22 23:05 06:02 07:57 WBC 7.87 RBC 4.15 L Hgb 11.7 L Hct 35.9 L MCV 86.5 MCH 28.2 MCHC 32.6 RDW Std Deviation 53.1 H RDW Coeff of Tonya 16.6 H Plt Count 313 MPV 9.4 Sodium Potassium Chloride Carbon Dioxide Anion Gap BUN Creatinine Est Cr Clr Drug Dosing Est GFR ( Amer) Est GFR (Non-Af Amer) BUN/Creatinine Ratio Glucose POC Glucose 105 H 104 H Calcium Phosphorus Magnesium 01/01/22 01/01/22 07:57 18:02 WBC RBC Hgb Hct MCV MCH MCHC RDW Std Deviation RDW Coeff of Tonya Plt Count MPV Sodium 134 L Potassium 4.2 Chloride 100 Carbon Dioxide 28 Anion Gap 6 BUN 26 H Creatinine 0.83 Est Cr Clr Drug Dosing 76.5 Est GFR ( Amer) 95.6 Est GFR (Non-Af Amer) 82.5 BUN/Creatinine Ratio 31.3 H Glucose 116 H POC Glucose 103 H Calcium 8.4 L Phosphorus 4.1 D Magnesium 2.1 PG Care Time/CCT Total # of Minutes Spent Total Time Spent with Patient: Total time spent is greater than 50% in coordination of care (as documented) at patient's floor/unit and/or counseling patient: Coding Level of Care Code 94943 Subseq Hosp Care Lvl 1 Diagnoses Atrial fibrillation with RVR I48.91 Adenocarcinoma of sigmoid colon C18.7 Chronic systolic CHF (congestive heart failure) I50.22 Hyponatremia E87.1 Hypertension I10 Hyperlipidemia E78.5 Alcohol abuse F10.10 Tobacco use Z72.0 CAD (coronary artery disease) I25.10 COPD (chronic obstructive pulmonary disease) J44.9 Demand ischemia of myocardium I24.8
[2022-01-01] MEDS: STOP CLINOLIPID SCH (22:08)
[2022-01-02] MEDS: AMIODARONE / D5W 360 MG/200 ML BAG IV SCH ×2 (01:02→13:43)
[2022-01-02] MEDS: METOPROLOL TARTRATE 1 MG/ML VIAL IV SCH ×3 (06:11→21:54)
[2022-01-02 07:08] LABS: Hematocrit (blood only) 35.7 % (40.1-51.0); Hemoglobin 11.6 g/dl (14.0-18.0); Mean Corpuscular Hemoglobin 28.1 pg (25.0-34.0); Mean Corpuscular Hgb Conc 32.5 g/dL (32.0-36.0); Mean Corpuscular Volume 86.4 fL (80.0-100.0); Platelet Count 315 K/uL (130-400); RDW Coefficient of Variation 16.4 % (11.5-14.5); RDW Standard Deviation 51.7 fL (36.4-46.3); Red Blood Count 4.13 M/uL (4.63-6.08); White Blood Count 7.62 K/ul (4.8-10.8)
[2022-01-02 07:44] LABS: BUN Creatinine Ratio 31.6 (10-20); Calcium 8.5 mg/dl (8.5-10.1); Creatinine Clr Calc Pharmacy 80.1 ml/min; Est GFR (African American) 97.6 ml/min; Est GFR (Non-African American) 84.2 ml/min; Magnesium 2.1 mg/dl (1.7-2.4); Phosphorus 4.1 mg/dl (2.5-4.9); Potassium 4.1 mmol/L (3.5-5.1)
[2022-01-02] MEDS: NICOTINE 7 MG/24 HR TDSY TD SCH (08:31)
[2022-01-02] MEDS: ENOXAPARIN INJ 40 MG/0.4 ML SYR SQ SCH (08:32)
[2022-01-02] MEDS: PANTOprazole 40 MG in SYRINGE 0 ML IV SCH ×2 (08:32→20:17)
[2022-01-02] MEDS: FIRST - Mouthwash BLM 119 ML PO SCH ×4 (08:32→21:54)
--- NOTE | 2022-01-02 08:47 | Hospitalist Progress Note ---
Date of Service January 02, 2022 Assessment & Plan (1) Atrial fibrillation with RVR: Plan: recurrent episodes throughout his stay requiring IV/PO metoprolol, IV cardizem, and finally amiodarone for rhythm control. remains on amiodarone drip at this time due to NPO status. continue such until able to take pills reliably and NG tube has been removed. cont metoprolol IV 2.5mg q8h. most recent echo - done as outpatient in [place] - EF 45-50%. (2) Adenocarcinoma of sigmoid colon: Plan: POD #14 s/p Robotic Laparoscopic assisted low anterior resection with mobilization of splenic flexure and end-to-end anastomosis, diverting loop ileostomy by Dr Huff. remains NPO with NG tube in place due to ileus s/p CT a/p today - results pending defer management to gen surg (3) Chronic systolic CHF (congestive heart failure): Plan: remains compensated cont IV BB defer on diuretics at this time most recent echo - 07/2021 in [place] - EF 45-50%, grade 1 diastolic dysfunction, no valvular dysfunction. normal LV wall motion. (4) Hyponatremia: Plan: 134 again today and stable. bmp am. (5) Hypertension: Plan: BPs satisfactory at this time with low-dose lopressor 2.5mg IV q8h. (6) Hyperlipidemia: Plan: statin on hold (7) Alcohol abuse: Plan: has had NO signs of etoh withdrawal at any point during the stay (8) Tobacco use: Plan: cont nicoderm patch 7mg/day (9) CAD (coronary artery disease): Plan: 03/2020 - [facility] cardiac cath minimal nonobstructive lesions in LAD and LCx RCA with a 50-60% lesion only appreciate cardiology consultation elevated troponin (peak was 9460) earlier this admission thought NOT due to acute coronary syndrome but demand ischemia in setting of rapid a.fib has had NO ischemic symptoms during this stay (10) COPD (chronic obstructive pulmonary disease): Plan: without exacerbation at this time albuterol prn (11) Demand ischemia of myocardium: Plan: peak HS troponin [id number] Plan pt's daughter updated at bedside yesterday DVT proph - while daryl is on hold cont lovenox 40mg daily Admission and Anticipated Discharge Date Admission Date: December 18, 2021 Subjective Attending: Dr. Valera This is an 81-year-old male that is postoperative day #15 of robotic LAR with DLI. The patient has adenocarcinoma of the sigmoid colon. This past weekend he developed an ileus which seems to be resolving. Patient also was in atrial fibrillation with RVR. He was placed on beta-blockers IV as well as amiodarone drip as the patient remains n.p.o. The patient does have a history of tobacco and alcohol abuse. So far has not had any signs of alcohol withdrawal during this admission. He is on a NicoDerm patch of 7 mg daily. Review of Systems Review of Systems: A total of 10 systems was reviewed and is negative other than as listed in the HPI Physical Exam Physical Exam: GENERAL : No acute distress EYES: No icterus, gaze conjugate NOSE: No evidence of epistaxis MOUTH: No lesions or candidiasis NECK: Supple LUNGS: CTA B/L, no wheezes, rales or rhonchi HEART: Regular, rate controlled ABDOMEN: Soft, NT, ND, BS Present EXTREMITIES: No LE edema, pedal pulses intact NEURO: A&OX3 Results & Data Results & Data ([facility]) Vital Signs (Past 12 Hours) Vital Signs Temp Pulse Pulse Pulse Pulse Resp BP 01/02/22 07:45 37.1 C 61 19 01/02/22 07:39 66 01/02/22 06:11 70 120/70 01/02/22 03:46 36.9 C 68 16 01/01/22 23:16 63 01/01/22 22:46 36.9 C 65 20 01/01/22 22:43 01/01/22 22:03 69 BP BP Pulse Ox O2 Del Method 01/02/22 07:45 127/58 L 92 Room Air 01/02/22 07:39 01/02/22 06:11 01/02/22 03:46 131/68 92 Room Air 01/01/22 23:16 01/01/22 22:46 131/72 93 Room Air 01/01/22 22:43 Room Air 01/01/22 22:03 105/58 L Critical Care Results & Data Vital Signs (Past 12 Hours) Vital Signs Temp Pulse Pulse Pulse Pulse Resp BP 01/02/22 07:45 37.1 C 61 19 01/02/22 07:39 66 01/02/22 06:11 70 120/70 01/02/22 03:46 36.9 C 68 16 01/01/22 23:16 63 01/01/22 22:46 36.9 C 65 20 01/01/22 22:43 01/01/22 22:03 69 BP BP Pulse Ox O2 Del Method 01/02/22 07:45 127/58 L 92 Room Air 01/02/22 07:39 01/02/22 06:11 01/02/22 03:46 131/68 92 Room Air 01/01/22 23:16 01/01/22 22:46 131/72 93 Room Air 01/01/22 22:43 Room Air 01/01/22 22:03 105/58 L Lab & Micro Results (Past 24 Hours) RBC 4.13 M/uL (4.63-6.08) L 01/02/22 WBC 7.62 K/ul (4.8-10.8) 01/02/22 Hgb 11.6 g/dl (14.0-18.0) L 01/02/22 Hct 35.7 % (40.1-51.0) L 01/02/22 MCV 86.4 fL (80.0-100.0) 01/02/22 MCH 28.1 pg (25.0-34.0) 01/02/22 MCHC 32.5 g/dL (32.0-36.0) 01/02/22 RDW Standard Deviation 51.7 fL (36.4-46.3) H 01/02/22 RDW Coefficient of Variation 16.4 % (11.5-14.5) H 01/02/22 Plt Count 315 K/uL (130-400) 01/02/22 MPV 10.0 fL (9.4-12.4) 01/02/22 Na 132 mmol/L (136-145) L 01/02/22 K 4.1 mmol/L (3.5-5.1) 01/02/22 Cl 98 mmol/L (98-107) 01/02/22 CO2 28 mmol/L (21-32) 01/02/22 Anion Gap 6 (3-11) 01/02/22 BUN 25 mg/dl (6-23) H 01/02/22 Creatinine 0.79 mg/dl (0.6-1.4) 01/02/22 Estimated GFR ( Amer) 97.6 ml/min 01/02/22 Estimated GFR (Non-Af Amer) 84.2 ml/min 01/02/22 BUN/Creatinine Ratio 31.6 (10-20) H 01/02/22 Glu 111 mg/dl (70-99(Fasting)) H 01/02/22 Ca 8.5 mg/dl (8.5-10.1) 01/02/22 Phosphorus Level 4.1 mg/dl (2.5-4.9) 01/02/22 Mg 2.1 mg/dl (1.7-2.4) 01/02/22 06:16 Calcium Level 8.5 mg/dl (8.5-10.1) 01/02/22 06:16 Diagnostic Findings (Past 24 Hours) KUB X-Ray 01/01/22 07:00 XR KUB/Abdomen 1 view CLINICAL HISTORY: eval bowel/gas pattern TECHNIQUE: 1 view of the abdomen was obtained. Comparison: Comparison is made to abdomen radiograph 01/01/2022 FINDINGS: Enteric tube is in satisfactory position. Suture material is noted projecting within the pelvis compatible bowel resection. Degenerative changes are seen in the visualized skeleton. Demonstration of gas-filled loops of small bowel, similar in extent to prior exam. IMPRESSION: Interval stability of gas dilated loops of small bowel compatible with postsurgical ileus versus obstruction. Again noted is a paucity of colonic gas. ACT 112: Negative or not required by law. Electronically signed by: Santino Bocanegra M.D. 01/01/2022 9:42 AM Abdomen/Pelvis CT 01/01/22 13:33 CT OF THE ABDOMEN AND PELVIS WITH CONTRAST CLINICAL HISTORY: pod#14 LAR w/ diverting loop ileostomy. ileus/sbo COMPARISON STUDY: CT of the abdomen and pelvis December 10, 2021 and KUB January 01, 2022. TECHNIQUE: Following IV administration of 87 mL of Optiray, axial images of the abdomen and pelvis were obtained from the lung bases to the proximal femurs. Images were reviewed in the axial, sagittal, and coronal planes. IV contrast was administered without complication. Automated exposure control was utilized for the study. A dose lowering technique was utilized adhering to the principles of ALARA. Oral contrast was administered. In addition, rectal contrast was administered. CT DOSE: 614.01 mGycm FINDINGS: Tip of nasogastric tube is within the distal body of the stomach. Oral contrast reaches the proximal jejunum. The rectum and colon is well-opacified by rectal contrast. No contrast extravasation at the colorectal anastomosis is noted to suggest leak. Mild adjacent stranding is expected in the early postoperative setting. There is no fluid collection to suggest an abscess. A sma ll amount of ascites within the abdomen and pelvis is noted. There are postoperative findings consistent with low anterior resection with right lower quadrant diverting ileostomy. The small bowel proximal to the ileostomy is moderately dilated and fluid-filled. Transition point is at the abdominal wall for the ileostomy, shown on axial image 310 of 546. As expected, the small bowel distal to the ileostomy is decompressed. No pneumatosis, free air or portal venous gas is present. Liver, spleen, adrenal glands and pancreas are unremarkable. There is suspected mild multifocal scarring within the kidneys. There is no hydronephrosis. Left lateral bladder diverticulum is noted. There is a small amount of hyperdense material within the diverticulum and the bladder. This may reflect contrast or small calculi however no calculi were shown on preoperative CT. Small bilateral inguinal hernias contain a small amount of gas. This is likely postsurgical. IMPRESSION: Status post low anterior resection with right lower quadrant diverting loop ileostomy. Small bowel proximal to the ileostomy moderately dilated and fluid- filled with transition point at the abdominal wall ileostomy site. This results in a small bowel obstruction. Small amount of ascites. No fluid collection to suggest abscess. Intact colorectal anastomosis without contrast extravasation to suggest leak. ACT 112: Negative or not required by law. Electronically signed by: Rocky Ewing M.D. 01/01/2022 5:15 PM I & O Totals 24 Hours 01/01/22 01/02/22 01/03/22 06:59 06:59 06:59 Intake Total 2530.002 / 2609.884 2503.383 / 2503.383 Output Total 2100 / 2100 1900 / 1900 Balance 430.002 / 509.884 603.383 / 603.383 Cumulative 11/26/21 14:19 thru 01/02/22 06:06 Intake Total 51699.361 Output Total 11085 Balance 5715.361 RT Ventilator Mngmt (Last Documented) Ventilator Ordered Settings Respiratory Rate 19 01/02/22 07:45 Ventilator - PT Measurements Respiratory Rate 19 PG Care Time/CCT Total # of Minutes Spent Total Time Spent with Patient: Total time spent is greater than 50% in coordination of care (as documented) at patient's floor/unit and/or counseling patient: Coding Diagnoses Atrial fibrillation with RVR I48.91 Adenocarcinoma of sigmoid colon C18.7 Chronic systolic CHF (congestive heart failure) I50.22 Hyponatremia E87.1 Hypertension I10 Hyperlipidemia E78.5 Alcohol abuse F10.10 Tobacco use Z72.0 CAD (coronary artery disease) I25.10 COPD (chronic obstructive pulmonary disease) J44.9 Demand ischemia of myocardium I24.8
--- NOTE | 2022-01-02 09:56 | XRay Report ---
XR chest 1V portable HISTORY: confirm NG placement COMPARISON: Abdomen and pelvis CT 01/01/2022. FINDINGS: The nasogastric tube terminates in the stomach. There is contrast within the visualized col on. There is mild elevation the right hemidiaphragm, unchanged. The heart remains borderline enlarged . The lung apices are not included on this study. Visualized lungs are essentially clear. There are f ew mildly dilated gas-filled loops of small bowel within the upper abdomen. IMPRESSION: 1. The nasogastric tube terminates in the stomach. 2. A few mildly dilated gas-filled loops of small bowel remain within the upper abdomen. ACT 112: Negative or not required by law. Electronically signed by: Missael Cole M.D. 01/02/2022 9:54 AM
--- NOTE | 2022-01-02 14:52 | Surgery Progress Note ---
Date of Service January 02, 2022 Assessment & Plan (1) History of colon surgery: Plan: 81-year-old male LAR with diverting loop ileostomy. It appears he has an ileostomy outlet obstruction. This may be due to sharp angulation of the aferrent limb versus edema in the muscle wall. Typically would treat this with decompression of the afferent limb with a catheter for several days and allow the edema to down. Given the fact that he has no evidence of leak on postoperative day 14 at his low colorectal anastomosis, I think we can reverse his ileostomy in the near future. In the meantime we will get a PICC and start TPN. I will stop by later today and place a Contreras catheter into his ileostomy to allow for decompression Order PICC, start TPN We will plan for laparoscopic assisted ileostomy takedown on Thursday The risks of the procedure were discussed to include but not limited to bleeding, infection, anastomotic leak, hernia, bowel obstruction, need for future more extensive surgery, conversion to open, and the risk of anesthesia The plan was discussed with the patient and his son and they are in agreement If his obstruction relieved with placement of the Contreras catheter and his ileostomy, then we could potentially allow him to advance his diet over the weekend and make him n.p.o. on Thursday. Appreciate medicine and cardiology assistance with this patient. Admission and Anticipated Discharge Date Admission Date: December 18, 2021 Subjective 81-year-old male POD #14 status post robot-assisted LAR. CT scan yesterday revealed partial obstruction at the level of the fascia of his ileostomy. This represents ileostomy outlet obstruction. Otherwise no changes. Physical Exam Constitutional: WD/WN, vitals as above Gastrointestinal (Abdomen): normal bowel sounds, soft, nontender, no hepatosplenomegaly Inspection/Auscultation: + abdominal surgical incision (No infection, steri's in place) Ileostomy slightly edematous, some succus in bag. Results & Data ([facility]) Vital Signs (Past 12 Hours) Vital Signs Temp Pulse Pulse Pulse Resp BP BP 01/02/22 13:45 80 01/02/22 11:21 36.6 C 76 18 112/66 01/02/22 08:00 01/02/22 07:45 37.1 C 61 19 127/58 L 01/02/22 07:39 66 01/02/22 06:11 70 120/70 01/02/22 03:46 36.9 C 68 16 131/68 Pulse Ox O2 Del Method 01/02/22 13:45 01/02/22 11:21 91 Room Air 01/02/22 08:00 Room Air 01/02/22 07:45 92 Room Air 01/02/22 07:39 01/02/22 06:11 01/02/22 03:46 92 Room Air Diagnostic Findings I personally reviewed and interpreted the CT scan myself. I believe this represents an ileostomy outlet obstruction at the level of the fascia. This could be due to to sharp angulation of the bowel loop or generalized edema in the muscle. He does not have a leak at his anastomotic site. CT OF THE ABDOMEN AND PELVIS WITH CONTRAST CLINICAL HISTORY: pod#14 LAR w/ diverting loop ileostomy. ileus/sbo COMPARISON STUDY: CT of the abdomen and pelvis December 10, 2021 and KUB January 01, 2022. TECHNIQUE: Following IV administration of 87 mL of Optiray, axial images of the abdomen and pelvis were obtained from the lung bases to the proximal femurs. Images were reviewed in the axial, sagittal, and coronal planes. IV contrast was administered without complication. Automated exposure control was utilized for the study. A dose lowering technique was utilized adhering to the principles of ALARA. Oral contrast was administered. In addition, rectal contrast was administered. CT DOSE: 614.01 mGycm FINDINGS: Tip of nasogastric tube is within the distal body of the stomach. Oral contrast reaches the proximal jejunum. The rectum and colon is well-opacified by rectal contrast. No contrast extravasation at the colorectal anastomosis is noted to suggest leak. Mild adjacent stranding is expected in the early postoperative setting. There is no fluid collection to suggest an abscess. A small amount of ascites within the abdomen and pelvis is noted. There are postoperative findings consistent with low anterior resection with right lower quadrant diverting ileostomy. The small bowel proximal to the ileostomy is moderately dilated and fluid-filled. Transition point is at the abdominal wall for the ileostomy, shown on axial image 310 of 546. As expected, the small bowel distal to the ileostomy is decompressed. No pneumatosis, free air or portal venous gas is present. Liver, spleen, adrenal glands and pancreas are unremarkable. There is suspected mild multifocal scarring within the kidneys. There is no hydronephrosis. Left lateral bladder diverticulum is noted. There is a small amount of hyperdense material within the diverticulum and the bladder. This may reflect contrast or small calculi however no calculi were shown on preoperative CT. Small bilateral inguinal hernias contain a small amount of gas. This is likely postsurgical. IMPRESSION: Status post low anterior resection with right lower quadrant diverting loop ileostomy. Small bowel proximal to the ileostomy moderately dilated and fluid- filled with transition point at the abdominal wall ileostomy site. This results in a small bowel obstruction. Small amount of ascites. No fluid collection to suggest abscess. Intact colorectal anastomosis without contrast extravasation to suggest leak. PG Care Time/CCT Total # of Minutes Spent Total Time Spent with Patient: Total time spent is greater than 50% in coordination of care (as documented) at patient's floor/unit and/or counseling patient: Coding Level of Care Code None Diagnoses History of colon surgery Z98.890
[2022-01-02] MEDS ORDERED: TPN/PPN CONSULT PHARMACY PRN (15:50)
[2022-01-02] MEDS ORDERED: AMINO ACIDS 4.25% IV SCH (16:00)
[2022-01-02] MEDS ORDERED: D5W IV SCH (16:00)
[2022-01-02] MEDS ORDERED: PERIPHERAL TPN IV SCH (16:00)
[2022-01-02] MEDS ORDERED: CLINOLIPID 20% IV FAT EMULSION 250 ML IV SCH (16:00)
[2022-01-02] MEDS: STOP CLINOLIPID SCH (21:55)
[2022-01-03] MEDS: AMIODARONE / D5W 360 MG/200 ML BAG IV SCH ×2 (01:08→06:50)
[2022-01-03] MEDS: METOPROLOL TARTRATE 1 MG/ML VIAL IV SCH ×3 (05:25→22:44)
[2022-01-03 06:49] LABS: BUN Creatinine Ratio 32.9 (10-20); Calcium 8.6 mg/dl (8.5-10.1); Creatinine Clr Calc Pharmacy 82.3 ml/min; Est GFR (African American) 99.2 ml/min; Est GFR (Non-African American) 85.6 ml/min; Magnesium 2.2 mg/dl (1.7-2.4); Phosphorus 3.9 mg/dl (2.5-4.9); Potassium 4.2 mmol/L (3.5-5.1)
[2022-01-03] MEDS: ENOXAPARIN INJ 40 MG/0.4 ML SYR SQ SCH (08:29)
[2022-01-03] MEDS: FIRST - Mouthwash BLM 119 ML PO SCH ×4 (08:30→20:35)
[2022-01-03] MEDS: PANTOprazole 40 MG in SYRINGE 0 ML IV SCH ×2 (08:31→20:35)
--- NOTE | 2022-01-03 09:40 | Surgery Progress Note ---
Date of Service January 03, 2022 Assessment & Plan (1) History of colon surgery: Plan: POD#16 robotic LAR with diverting loop ileostomy CT imaging 2 days ago revealed SBO at level of ileostomy. Yesterday surgeon placed catheter into ileostomy to decompress and he has been having some + ostomy output. NGT output has been minimal Will obtain KUB for further evaluation, if improved consider NGT removal and slow advancement of diet PICC line was obtained yesterday and he will start TPN today to be continued throughout the wknd He is tentatively scheduled for ileostomy reversal next Appreciate medicine and cardiology assistance with the pt [facility] [address] surgery covering the weekend Admission and Anticipated Discharge Date Admission Date: December 18, 2021 Supervising Physician Co-Signing Physician Notes Patient seen and examined, labs reviewed, agree with above. Status post robotic assisted LAR with diverting loop ileostomy, after return of bowel function he developed partial ileostomy outlet obstruction resulting in partial small bowel obstruction. Threaded a Clements catheter below the level of the fascia and he has had some slight increase in ileostomy output. He thinks his belly feels a little better. On exam he is afebrile stable vitals. The Clements catheter is in the ileostomy and draining succus. His abdomen is still moderately distended though slightly improved. Incisions without infection. Labs unremarkable. We will continue NG tube, TPN starting today. KUB pending. If improves over the weekend, may remove NG tube and allow him to have a diet. We will plan on ileostomy reversal on Thursday. [facility] will be covering over the weekend. Subjective Patient doing okay. Denies nausea. Says abdominal bloating has been on and off. Pain overall controlled. Physical Exam Constitutional: WD/WN, vitals as above Gastrointestinal (Abdomen): normal bowel sounds, soft, nontender, no hepatosplenomegaly Inspection/Auscultation: + abdomen distended and + abdominal surgical incision (no infection) ileostomy with clements in place, succus Results & Data ([facility]) Vital Signs (Past 12 Hours) Vital Signs Temp Pulse Pulse Pulse Resp BP BP 01/03/22 08:00 36.7 C 62 16 122/69 01/03/22 07:33 76 01/03/22 05:25 65 131/59 L 01/03/22 05:25 65 131/59 L 01/03/22 03:50 36.7 C 68 16 127/65 01/03/22 00:50 65 01/02/22 21:54 68 128/68 01/02/22 21:53 36.9 C 68 17 128/68 Pulse Ox O2 Del Method 01/03/22 08:00 96 01/03/22 07:33 01/03/22 05:25 01/03/22 05:25 01/03/22 03:50 92 Room Air 01/03/22 00:50 01/02/22 21:54 01/02/22 21:53 93 Room Air PG Care Time/CCT Total # of Minutes Spent Total Time Spent with Patient: Total time spent is greater than 50% in coordination of care (as documented) at patient's floor/unit and/or counseling patient: Coding Level of Care Code None Diagnoses History of colon surgery Z98.890
--- NOTE | 2022-01-03 12:01 | XRay Report ---
KUB HISTORY: Acute generalized abdominal pain. Follow-up study in a patient with reported small bowel obs truction sbo COMPARISON: KUB and CT abdomen and pelvis 01/01/2022 FINDINGS: Distal tip of enteric tube projects over the stomach. Anastomotic suture material is presen t within the pelvis from prior low anterior resection. Enteric contrast is noted within the normal ca liber large bowel. Contrast-filled nondilated appendix. There is persistent small bowel dilation with air-filled dilated loops measuring up to approximately 3.6 cm. There is no significant change from p rior. No renal calculi. No ureteral calculi. No pneumoperitoneum or pneumatosis. No fracture. IMPRESSION: 1. Persistent small bowel obstruction. Distal tip of enteric tube projects over the stomach. 2. Rectally administered contrast within the nondilated large bowel redemonstrated. ACT 112: Negative or not required by law. The above report was generated using voice recognition software. It may contain grammatical, syntax o r spelling errors. Electronically signed by: Guerrero Morris M.D. 01/03/2022 11:59 AM
[2022-01-03] MEDS: NICOTINE 7 MG/24 HR TDSY TD SCH (12:29)
--- NOTE | 2022-01-03 12:41 | Hospitalist Progress Note ---
Date of Service January 03, 2022 Assessment & Plan (1) Atrial fibrillation with RVR: Plan: recurrent episodes throughout his stay requiring IV/PO metoprolol, IV cardizem, and finally amiodarone for rhythm control. on amiodarone drip at this time due to NPO status. continue until able to take pills reliably and NG tube has been removed. cont metoprolol IV 2.5mg q8h. most recent echo - done as outpatient in [place] - EF 45-50%. (2) Adenocarcinoma of sigmoid colon: Plan: POD #16 s/p Robotic Laparoscopic assisted low anterior resection with mobilization of splenic flexure and end-to-end anastomosis, diverting loop ileostomy by Dr Huff. remains NPO NG tube in place gastric decompression d/t SBO clements inserted into ileostomy for decompression with output noted KUB continues to demonstrate persistent SBO cont IV fluids (PPN) defer management to gen surg (3) Chronic systolic CHF (congestive heart failure): Plan: compensated cont IV BB no diuretics at this time (4) Hyponatremia: Plan: 132 today and stable. (5) Hypertension: Plan: BPs satisfactory at this time. Cont Lopressor but reduce dose to 2.5mg IV q8h. (6) Hyperlipidemia: Plan: statin remains on hold (7) Alcohol abuse: Plan: has had NO signs of etoh withdrawal at any point during the stay (8) Tobacco use: Plan: continue nicotine patch daily (9) CAD (coronary artery disease): Plan: 03/2020 - [facility] cardiac cath minimal nonobstructive lesions in LAD and LCx RCA with a 50-60% lesion only appreciate cardiology consultation elevated troponin (peak was 9460) earlier this admission thought NOT due to acute coronary syndrome but demand ischemia in setting of rapid a.fib has had NO ischemic symptoms during this stay (10) COPD (chronic obstructive pulmonary disease): Plan: stable w/o acute exacerbation Admission and Anticipated Discharge Date Admission Date: December 18, 2021 Subjective Patient seen on daily rounds this morning. Voices no new complaints/concerns. Notes abd pain controlled. No n/v. Review of Systems Review of Systems: All systems reviewed and are unremarkable except as noted in HPI and below. Denies fever, chills, fatigue, headache, nasal congestion, sore throat, cough, chest pain, shortness of breath, palpitations, orthopnea, PND, abdominal pain, n/v/d, constipation, dysuria, hematuria, frequency, back pain, joint pain or swelling, easy bruising or bleeding, skin lesions or rashes. Physical Exam Physical Exam: GENERAL: 81 yo Well-developed, well-nourished WM. NGT in place. NAD. LUNGS: Clear to auscultation bilaterally. No W/R/R. CARDIOVASCULAR: Regular rate and rhythm. ABDOMEN: Soft, non-tender, mild distention. Ostomy bag present. Hypoactive BS. Clements inserted into ileostomy for decompression with muddy bowel contents in bag. EXTREMITIES: No edema. Non-tender. Peripheral pulses +2/4. NEUROLOGIC: A&O x3. PSYCHIATRIC: Cooperative. Appropriate mood and affect. SKIN: Warm, dry, intact. No rashes or lesions. Results & Data Results & Data ([facility]) Vital Signs (Past 12 Hours) Vital Signs Temp Pulse Pulse Pulse Resp BP BP 01/03/22 11:00 36.6 C 72 16 108/61 01/03/22 09:40 01/03/22 08:00 36.7 C 62 16 122/69 01/03/22 07:33 76 01/03/22 05:25 65 131/59 L 01/03/22 05:25 65 131/59 L 01/03/22 03:50 36.7 C 68 16 127/65 01/03/22 00:50 65 Pulse Ox O2 Del Method 01/03/22 11:00 95 01/03/22 09:40 Room Air 01/03/22 08:00 96 01/03/22 07:33 01/03/22 05:25 01/03/22 05:25 01/03/22 03:50 92 Room Air 01/03/22 00:50 Laboratory Results 01/02/22 06:16 01/03/22 05:32 PG Care Time/CCT Total # of Minutes Spent Total Time Spent with Patient: Total time spent is greater than 50% in coordination of care (as documented) at patient's floor/unit and/or counseling patient: Coding Level of Care Code 37707 Subseq Hosp Care Lvl 2 Diagnoses Atrial fibrillation with RVR I48.91 Adenocarcinoma of sigmoid colon C18.7 Chronic systolic CHF (congestive heart failure) I50.22 Hyponatremia E87.1 Hypertension I10 Hyperlipidemia E78.5 Alcohol abuse F10.10 Tobacco use Z72.0 CAD (coronary artery disease) I25.10 COPD (chronic obstructive pulmonary disease) J44.9
--- NOTE | 2022-01-03 13:33 | Pharmacy Report ---
PHA: Parenteral Nutrition Con - Date of Service January 03, 2022 - Scope Pharmacy was consulted on 12/30/21 to manage parenteral nutrition orders for this patient. - Subjective The patient is currently on day #5 of parenteral nutrition for adenocarcinoma of sigmoid colon s/p resection and diverting ileostomy. - Objective Height: 6 ft Weight: 76.3 kg Diet: NPO Intake & Output (24hrs):: Intake & Output 01/01/22 01/02/22 01/03/22 01/04/22 06:59 06:59 06:59 06:59 Intake Total 2530.002 / 2609.884 2503.383 / 2503.383 2846.049 / 2846.049 Output Total 2100 / 2100 1900 / 1900 2925 / 2925 Balance 430.002 / 509.884 603.383 / 603.383 -78.951 / -78.951 Weight 77.2 kg 76.3 kg Laboratory Data (Last 24 Hr):: 01/03/22 05:32 Sodium 132 L Potassium 4.2 Chloride 99 Carbon Dioxide 26 BUN 25 H Creatinine 0.76 Glucose 109 H Calcium 8.6 Phosphorus 3.9 Magnesium 2.2 Nutrition Assessment:: Please refer to the Notes section of the EMR for the most recent pharmacist hospital note. - Assessment 01/03/22: * PICC line placed yesterday. TPN to continue throughout the weekend per surgery. * Continues with mild hyponatremia that is stable. Given PICC line/TPN, will be able to increase sodium content in bag today as not limited by osmolarity. * Total fluids around 1570 mL. Monitor status given h/o cardiomyopathy. * Going straight to macronutrient goals as patient has been tolerating PPN x 4 days, Mg/Phos/K all stable so low risk for refeeding syndrome. - Plan For day #5 of PN (1st day of TPN) administration, the following will be ordered: Macronutrients Amino acids 115 grams/day Dextrose 202 grams/day Lipids 50 grams/day Micronutrients Combined electrolytes 40 mL - contains 35 mEq Na, 20 meq K, 4.5 mEq Ca, 5 mEq Mg, 35 mEq Cl, 29.5 mEq acetate per 20 mL Sodium phosphate 21 MMol Sodium chloride 100 mEq Sodium acetate 40 mEq Potassium chloride 40 mEq Multivitamins 10 mL Trace Elements 1 mL Thiamine 100 mg Folic Acid 1 mg Total volume 1579.2 mL to be infused over 24 hrs will provide 1646.2 kcal/day Labs, as indicated, will be ordered per protocol Pharmacy will continue to follow and adjust parenteral nutrition orders on a daily basis. Thank you for allowing us to participate in the care of this patient.
[2022-01-03] MEDS ORDERED: AMINO ACID 8% IV SCH (16:00)
[2022-01-03] MEDS ORDERED: D5W IV SCH (16:00)
[2022-01-03] MEDS ORDERED: [UNRECOGNIZED DRUG - OTHER] IV SCH (16:00)
[2022-01-03] MEDS ORDERED: AMINO ACIDS 4.25% IV SCH (16:00)
[2022-01-03] MEDS ORDERED: CLINOLIPID 20% IV FAT EMULSION 250 ML IV SCH (16:00)
[2022-01-03] MEDS ORDERED: PERIPHERAL TPN IV SCH ×2 (16:00)
[2022-01-03] MEDS: STOP CLINOLIPID SCH (22:44)
[2022-01-04] MEDS: METOPROLOL TARTRATE 1 MG/ML VIAL IV SCH ×3 (05:50→22:37)
--- NOTE | 2022-01-04 07:20 | XRay Report ---
KUB CLINICAL HISTORY: Evaluate small bowel obstruction. COMPARISON STUDY: CT of the abdomen and pelvis January 01, 2022. KUB January 03, 2022. FINDINGS: Tip of nasogastric tube is within the body of the stomach. Rectally administered contrast w ithin the colon and rectum is again noted. A right lower quadrant ileostomy and colorectal anastomosi s are noted. Moderate small bowel dilatation persists. Small bowel dilatation is similar to prior exa m. IMPRESSION: Small bowel dilatation similar to prior exam. This represents a persistent small bowel ob struction. ACT 112: Negative or not required by law. Electronically signed by: Rocky Ewing M.D. 01/04/2022 7:19 AM
[2022-01-04 07:47] LABS: BUN Creatinine Ratio 34.6 (10-20); Calcium 8.6 mg/dl (8.5-10.1); Creatinine Clr Calc Pharmacy 74.5 ml/min; Est GFR (African American) 96.6 ml/min; Est GFR (Non-African American) 83.4 ml/min; Magnesium 2.2 mg/dl (1.7-2.4); Phosphorus 3.9 mg/dl (2.5-4.9); Potassium 4.4 mmol/L (3.5-5.1)
[2022-01-04] MEDS: ENOXAPARIN INJ 40 MG/0.4 ML SYR SQ SCH (08:45)
[2022-01-04] MEDS: NICOTINE 7 MG/24 HR TDSY TD SCH (08:45)
[2022-01-04] MEDS: PANTOprazole 40 MG in SYRINGE 0 ML IV SCH ×2 (08:45→20:13)
[2022-01-04] MEDS: FIRST - Mouthwash BLM 119 ML PO SCH ×4 (08:46→20:12)
--- NOTE | 2022-01-04 10:57 | Hospitalist Progress Note ---
Date of Service January 04, 2022 Assessment & Plan (1) Atrial fibrillation with RVR: Plan: - recurrent episodes throughout his stay requiring IV/PO metoprolol, IV cardizem, and finally amiodarone for rhythm control. - on amiodarone drip at this time due to NPO status. continue until able to take pills reliably and NG tube has been removed. - cont metoprolol IV 2.5mg q8h. - most recent echo - done as outpatient in [place] - EF 45-50%. (2) Adenocarcinoma of sigmoid colon: Plan: POD #17 s/p Robotic Laparoscopic assisted low anterior resection with mobilization of splenic flexure and end-to-end anastomosis, diverting loop ileostomy by Dr Huff. - remains NPO - NG tube in place gastric decompression d/t SBO - clements inserted into ileostomy for decompression with output noted - KUB from 01/03 continues to demonstrate persistent SBO - cont IV fluids (PPN) - defer management to gen surg (3) Chronic systolic CHF (congestive heart failure): Plan: - compensated - cont IV BB - no diuretics at this time (4) Hyponatremia: Plan: - 135 today and stable. (5) Hypertension: Plan: - BPs satisfactory at this time. - Cont Lopressor but reduce dose to 2.5mg IV q8h. (6) Hyperlipidemia: Plan: - statin remains on hold (7) Alcohol abuse: Plan: - has had NO signs of etoh withdrawal at any point during the stay (8) Tobacco use: Plan: - continue nicotine patch daily (9) CAD (coronary artery disease): Plan: 03/2020 - [facility] cardiac cath minimal nonobstructive lesions in LAD and LCx RCA with a 50-60% lesion only - appreciate cardiology consultation - elevated troponin (peak was 9460) earlier this admission thought NOT due to acute coronary syndrome but demand ischemia in setting of rapid a.fib - has had NO ischemic symptoms during this stay (10) COPD (chronic obstructive pulmonary disease): Plan: - stable w/o acute exacerbation Plan Patient remains medically stable, no further recommendations from medicine at this time. Will sign off but continue to perform daily chart checks. Please feel free to contact if any acute changes/needs from medicine should arise while pt remains in house. Thank you for allowing us to participate in this care. Plan d/w Dr. Valera. Admission and Anticipated Discharge Date Admission Date: December 18, 2021 Subjective Patient seen on daily rounds this morning. Voices no new complaints/concerns. Notes abd pain controlled. No n/v. Review of Systems Review of Systems: All systems reviewed and are unremarkable except as noted in HPI and below. Denies fever, chills, fatigue, headache, nasal congestion, sore throat, cough, chest pain, shortness of breath, palpitations, orthopnea, PND, abdominal pain, n/v/d, constipation, dysuria, hematuria, frequency, back pain, joint pain or swelling, easy bruising or bleeding, skin lesions or rashes. Physical Exam Physical Exam: GENERAL: 81 yo Well-developed, well-nourished WM. NGT in place. NAD. LUNGS: Clear to auscultation bilaterally. No W/R/R. CARDIOVASCULAR: Regular rate and rhythm. ABDOMEN: Soft, non-tender, mild distention. Ostomy bag present. BS present and improved today. Clements inserted into ileostomy for decompression with muddy bowel contents in bag. EXTREMITIES: No edema. Non-tender. Peripheral pulses +2/4. NEUROLOGIC: A&O x3. PSYCHIATRIC: Cooperative. Appropriate mood and affect. SKIN: Warm, dry, intact. No rashes or lesions. Results & Data Results & Data ([facility]) Vital Signs (Past 12 Hours) Vital Signs Temp Pulse Pulse Pulse Resp BP Pulse Ox 01/04/22 09:04 01/04/22 08:29 36.8 C 77 16 125/73 96 01/04/22 06:45 73 01/04/22 05:48 84 115/61 01/04/22 04:00 36.7 C 88 17 108/65 91 01/03/22 23:43 80 O2 Del Method 01/04/22 09:04 Room Air 01/04/22 08:29 01/04/22 06:45 01/04/22 05:48 01/04/22 04:00 Room Air 01/03/22 23:43 PG Care Time/CCT Total # of Minutes Spent Total Time Spent with Patient: Total time spent is greater than 50% in coordination of care (as documented) at patient's floor/unit and/or counseling patient: Coding Level of Care Code 39695 Subseq Hosp Care Lvl 2 Diagnoses Atrial fibrillation with RVR I48.91 Adenocarcinoma of sigmoid colon C18.7 Chronic systolic CHF (congestive heart failure) I50.22 Hyponatremia E87.1 Hypertension I10 Hyperlipidemia E78.5 Alcohol abuse F10.10 Tobacco use Z72.0 CAD (coronary artery disease) I25.10 COPD (chronic obstructive pulmonary disease) J44.9
--- NOTE | 2022-01-04 15:58 | Surgery Progress Note ---
Date of Service January 04, 2022 Assessment & Plan (1) History of colon surgery: Plan: Ileostomy obstruction at outlet- unchanged, clements in place to help drain. Discussed that with no improvement on imaging or exam, I am reluctant to remove the ng tube. Will give cepacol lozenges and let him have some ice chips for comfort. Explained situation with family who is hoping his surgery can happen more expeditiously than Wed. Advised to discuss with primary team on Thursday. Overall, he is stable just without improvement. Admission and Anticipated Discharge Date Admission Date: December 18, 2021 Subjective Seen with family at bedside who note it is difficult for patient to talk due to pain/ sore throat from ng tube. Appears to be uncomfortable because of the ng - they are hoping to have it removed. He continues with minimal output in ostomy (slight amount of liquid, clements is in place), xray today shows persistent small bowel obstruction without change. Physical Exam Constitutional: WD/WN, vitals as above Respiratory: normal respiratory effort, lungs clear to auscultation Cardiovascular: RRR, no murmur, no edema Gastrointestinal (Abdomen): sitting n chair, mild distention,hypoactive bowel tones, incisions clean, ostomy bag with some liquid stool (minimal quantities), ng in place Results & Data ([facility]) Vital Signs (Past 12 Hours) Vital Signs Temp Pulse Pulse Pulse Resp BP BP 01/04/22 13:00 84 105/51 L 01/04/22 11:00 37.0 C 86 18 112/60 01/04/22 09:04 01/04/22 08:29 36.8 C 77 16 125/73 01/04/22 06:45 73 01/04/22 05:48 84 115/61 01/04/22 04:00 36.7 C 88 17 108/65 Pulse Ox O2 Del Method 01/04/22 13:00 01/04/22 11:00 96 01/04/22 09:04 Room Air 01/04/22 08:29 96 01/04/22 06:45 01/04/22 05:48 01/04/22 04:00 91 Room Air Laboratory Results Abnormal lab results 01/03/22 01/03/22 01/03/22 Range/Units 16:31 20:29 22:49 Sodium (136-145) mmol/L BUN (6-23) mg/dl BUN/Creatinine Ratio (10-20) Glucose (70-99(Fasting)) mg/dl POC Glucose 105 H 110 H 115 H (70-99) mg/dl 01/04/22 01/04/22 01/04/22 Range/Units 05:54 06:58 12:30 Sodium 135 L (136-145) mmol/L BUN 28 H (6-23) mg/dl BUN/Creatinine Ratio 34.6 H (10-20) Glucose 119 H (70-99(Fasting)) mg/dl POC Glucose 131 H 126 H (70-99) mg/dl
[2022-01-04] MEDS ORDERED: [UNRECOGNIZED DRUG - OTHER] IV SCH (16:00)
[2022-01-04] MEDS ORDERED: AMINO ACID 8% IV SCH (16:00)
[2022-01-04] MEDS ORDERED: PERIPHERAL TPN IV SCH (16:00)
[2022-01-04] MEDS ORDERED: CLINOLIPID 20% IV FAT EMULSION 250 ML IV SCH (16:00)
[2022-01-04] MEDS: COUGH DROP (SUGAR FREE) LOZ 24 LOZ/1 BOX BUCCAL PRN (20:14)
[2022-01-04] MEDS: CHLORASEPTIC 1.4% SOLN 180 ML BTL MT PRN (20:14)
[2022-01-04] MEDS: STOP CLINOLIPID SCH (23:24)
[2022-01-05] MEDS: METOPROLOL TARTRATE 1 MG/ML VIAL IV SCH ×3 (06:22→23:11)
[2022-01-05] MEDS: COUGH DROP (SUGAR FREE) LOZ 24 LOZ/1 BOX BUCCAL PRN ×2 (06:57→08:52)
[2022-01-05] MEDS: NICOTINE 7 MG/24 HR TDSY TD SCH (08:52)
[2022-01-05] MEDS: PANTOprazole 40 MG in SYRINGE 0 ML IV SCH ×2 (08:52→20:32)
[2022-01-05] MEDS: ENOXAPARIN INJ 40 MG/0.4 ML SYR SQ SCH (08:52)
[2022-01-05] MEDS: FIRST - Mouthwash BLM 119 ML PO SCH ×4 (08:52→20:31)
[2022-01-05 09:14] LABS: BUN Creatinine Ratio 35.9 (10-20); Bilirubin,Total 0.3 mg/dl (0.2-1.0); Creatinine Clr Calc Pharmacy 77.7 ml/min; Est GFR (African American) 98.1 ml/min; Est GFR (Non-African American) 84.7 ml/min; Magnesium 2.2 mg/dl (1.7-2.4); Phosphorus 3.9 mg/dl (2.5-4.9); Potassium 4.3 mmol/L (3.5-5.1)
--- NOTE | 2022-01-05 10:26 | Surgery Progress Note ---
Date of Service January 05, 2022 Assessment & Plan (1) History of colon surgery: Plan: Ileostomy obstruction at outlet- looks much better with increased output in bag, less distended in abdomen, clements in place to help drain. Ambulating well. Will try clamping ng tube and if tolerates, can remove today and keep npo. Appears that the obstruction is resolving. Admission and Anticipated Discharge Date Admission Date: December 18, 2021 Subjective Ostomy output dramatically increased overnight. 650 cc plus per shift. Abdomen less distended. NG with 2150 total yesterday. Main complaint is from ng tube. No nausea or vomiting. Has been taking some ice chips but mainly spitting these out again. Physical Exam Constitutional: WD/WN, vitals as above Respiratory: normal respiratory effort, lungs clear to auscultation Cardiovascular: RRR, no murmur, no edema Gastrointestinal (Abdomen): soft, positive bowel tones, incision clean - gas and some form to stool in the ostomy bag, nontender Neurologic: awake; no focal motor deficits Results & Data ([facility]) Vital Signs (Past 12 Hours) Vital Signs Temp Pulse Pulse Pulse Resp BP BP 01/05/22 09:00 01/05/22 08:00 36.8 C 87 18 135/65 01/05/22 06:19 36.6 C 87 18 140/76 01/05/22 02:42 37.8 C H 82 16 113/64 01/05/22 00:11 88 01/04/22 22:37 92 H 135/74 01/04/22 22:35 36.7 C 92 H 17 135/74 Pulse Ox O2 Del Method 01/05/22 09:00 Room Air 01/05/22 08:00 98 01/05/22 06:19 91 Room Air 01/05/22 02:42 94 Room Air 01/05/22 00:11 01/04/22 22:37 01/04/22 22:35 94 Room Air Laboratory Results Abnormal lab results 01/04/22 01/04/22 01/05/22 Range/Units 12:30 18:28 00:33 BUN (6-23) mg/dl BUN/Creatinine Ratio (10-20) Glucose (70-99(Fasting)) mg/dl POC Glucose 126 H 122 H 106 H (70-99) mg/dl 01/05/22 01/05/22 Range/Units 06:13 08:37 BUN 28 H (6-23) mg/dl BUN/Creatinine Ratio 35.9 H (10-20) Glucose 118 H (70-99(Fasting)) mg/dl POC Glucose 111 H (70-99) mg/dl
[2022-01-05] MEDS ORDERED: [UNRECOGNIZED DRUG - OTHER] IV SCH (16:00)
[2022-01-05] MEDS ORDERED: CLINOLIPID 20% IV FAT EMULSION 250 ML IV SCH (16:00)
[2022-01-05] MEDS ORDERED: PERIPHERAL TPN IV SCH (16:00)
[2022-01-05] MEDS ORDERED: AMINO ACID 8% IV SCH (16:00)
[2022-01-05] MEDS: STOP CLINOLIPID SCH (23:10)
[2022-01-06] MEDS: METOPROLOL TARTRATE 1 MG/ML VIAL IV SCH ×3 (06:13→21:30)
[2022-01-06 07:57] LABS: BUN Creatinine Ratio 45.1 (10-20); Calcium 8.7 mg/dl (8.5-10.1); Magnesium 2.2 mg/dl (1.7-2.4); Phosphorus 4.2 mg/dl (2.5-4.9); Potassium 4.1 mmol/L (3.5-5.1)
[2022-01-06] MEDS: ENOXAPARIN INJ 40 MG/0.4 ML SYR SQ SCH (08:19)
[2022-01-06] MEDS: NICOTINE 7 MG/24 HR TDSY TD SCH (08:20)
[2022-01-06] MEDS: FIRST - Mouthwash BLM 119 ML PO SCH ×4 (08:20→21:27)
[2022-01-06] MEDS: PANTOprazole 40 MG in SYRINGE 0 ML IV SCH ×2 (08:20→21:27)
--- NOTE | 2022-01-06 08:44 | Surgery Progress Note ---
Date of Service January 06, 2022 Assessment & Plan (1) History of colon surgery: Plan: s/p robotic LAR with diverting loop ileostomy on 12/18 ostomy began with increasing output over the wknd, NGT removed yesterday he is tolerating NGT removal well. abdomen soft and flat. will trial clear liquids this AM cont on TPN via PICC line tentatively on schedule this upcoming for ileostomy take down appreciate hospitalists assistance w/ patient with med mngt and his cardiac meds Admission and Anticipated Discharge Date Admission Date: December 18, 2021 Supervising Physician Co-Signing Physician Notes Patient seen and examined, weak and events reviewed, labs and image reviewed, agree with above. Status post LAR with colorectal anastomosis and diverting loop ileostomy. He had a ileostomy outlet obstruction which appears to have resolved. His NG tube was removed yesterday and he is feeling much better. He is tolerating clear liquids. On exam he is afebrile stable vitals. Abdomen is soft, less distended, nontender. Incision without infection. Ileostomy with Contreras in place and productive of gas and succus. We will plan on advancing him to full liquid diet. Plan for ileostomy takedown on Thursday. Subjective Patient reports feeling well. He is happy about the NGT being out. He denies pain, nausea/vomiting. Physical Exam Physical Exam: awake/alert, no distress Gastrointestinal (Abdomen): Inspection/Auscultation: + abdominal surgical incision (c/d/i); abdomen not distended Percussion/Palpation: abdomen soft; abdomen nontender ostomy with + liquid stool in bag Results & Data ([facility]) Vital Signs (Past 12 Hours) Vital Signs Temp Pulse Pulse Resp BP BP Pulse Ox 01/06/22 07:04 36.8 C 67 18 105/58 L 94 01/06/22 06:10 73 126/64 01/06/22 03:21 37.2 C 70 18 114/63 94 01/06/22 01:56 86 01/05/22 23:11 88 128/77 01/05/22 22:13 37.4 C 88 18 128/77 93 O2 Del Method 01/06/22 07:04 Room Air 01/06/22 06:10 01/06/22 03:21 Room Air 01/06/22 01:56 01/05/22 23:11 01/05/22 22:13 Room Air PG Care Time/CCT Total # of Minutes Spent Total Time Spent with Patient: Total time spent is greater than 50% in coordination of care (as documented) at patient's floor/unit and/or counseling patient: Coding Level of Care Code None Diagnoses History of colon surgery Z98.890
[2022-01-06] MEDS ORDERED: CLINOLIPID 20% IV FAT EMULSION 250 ML IV SCH (16:00)
[2022-01-06] MEDS ORDERED: PERIPHERAL TPN IV SCH (16:00)
[2022-01-06] MEDS ORDERED: [UNRECOGNIZED DRUG - OTHER] IV SCH (16:00)
[2022-01-06] MEDS ORDERED: AMINO ACID 8% IV SCH (16:00)
--- NOTE | 2022-01-06 19:49 | Communication Note ---
Date of Service: January 06, 2022 Patient requested that the [facility] glucometer checks be discontinued. No hx of diabetes. On TPN. BSGs have ranged from 83-131. Will dc bsg checks at patient request; follow AM BMP. If needed, can reinstitute HS glucometer checks at a later time.
[2022-01-06] MEDS: STOP CLINOLIPID SCH (22:23)
[2022-01-07] MEDS: METOPROLOL TARTRATE 1 MG/ML VIAL IV SCH ×3 (05:47→21:34)
[2022-01-07] MEDS: NICOTINE 7 MG/24 HR TDSY TD SCH (08:18)
[2022-01-07] MEDS ORDERED: ENOXAPARIN INJ 40 MG/0.4 ML SYR SQ ONE (08:33)
--- NOTE | 2022-01-07 08:33 | Surgery Progress Note ---
Date of Service January 07, 2022 Assessment & Plan (1) History of colon surgery: Plan: s/p robotic LAR with diverting loop ileostomy on 12/18 cont full liquids cont on TPN via PICC line plan for ileostomy take down tomorrow hold Lovenox after this morning Admission and Anticipated Discharge Date Admission Date: December 18, 2021 Supervising Physician Co-Signing Physician Notes Patient seen and examined, labs and imaging reviewed, agree with above. 81-year-old male status post LAR with diverting loop ileostomy. He had been scheduled for discharge and then his ileostomy stopped working and CT scan revealed ileostomy outlet obstruction. This was treated with a Contreras catheter and is now functioning nicely. He is tolerating full liquids. We are planning on taking down his ileostomy tomorrow. On exam he is afebrile stable vitals. Ileostomy with Contreras catheter in place, functioning well, abdomen soft, inc isions without infection. Plan for laparoscopic assisted ileostomy closure, possible open in operating room tomorrow morning The risks of the procedure were discussed to include but not limited to bl eeding, infection, leak, damage to surrounding structures, conversion open, need for future more extensive surgery, and the risk of anesthesia N.p.o. after midnight, hold Lovenox Patient's family at bedside, all questions answered Subjective tolerating full liquids Physical Exam Gastrointestinal (Abdomen): Inspection/Auscultation: abdomen not distended Percussion/Palpation: abdomen soft has liquid ileostomy output Results & Data ([facility]) Vital Signs (Past 12 Hours) Vital Signs Temp Pulse Pulse Pulse Pulse Resp BP 01/07/22 07:21 36.6 C 64 19 01/07/22 05:47 70 120/58 L 01/07/22 05:46 70 01/07/22 04:08 36.6 C 70 17 01/07/22 00:49 67 01/06/22 22:44 37 C 72 16 01/06/22 21:28 70 BP Pulse Ox O2 Del Method 01/07/22 07:21 108/58 L 95 Room Air 01/07/22 05:47 01/07/22 05:46 120/58 L 01/07/22 04:08 114/60 93 Room Air 01/07/22 00:49 01/06/22 22:44 105/62 94 Room Air 10/31/22 21:28 110/57 L PG Care Time/CCT Total # of Minutes Spent Total Time Spent with Patient: Total time spent is greater than 50% in coordination of care (as documented) at patient's floor/unit and/or counseling patient: Coding Level of Care Code None Diagnoses History of colon surgery Z98.890
[2022-01-07] MEDS: FIRST - Mouthwash BLM 119 ML PO SCH ×4 (08:34→21:34)
[2022-01-07] MEDS: PANTOprazole 40 MG in SYRINGE 0 ML IV SCH ×2 (08:35→21:34)
[2022-01-07 09:34] LABS: BUN Creatinine Ratio 41.9 (10-20); Calcium 8.6 mg/dl (8.5-10.1); Creatinine Clr Calc Pharmacy 81.4 ml/min; Est GFR (African American) 100.3 ml/min; Est GFR (Non-African American) 86.5 ml/min; Phosphorus 3.8 mg/dl (2.5-4.9)
[2022-01-07] MEDS ORDERED: [UNRECOGNIZED DRUG - OTHER] IV SCH (16:00)
[2022-01-07] MEDS ORDERED: CENTRAL TPN IV SCH (16:00)
[2022-01-07] MEDS ORDERED: AMINO ACID 8% IV SCH (16:00)
[2022-01-07] MEDS ORDERED: CLINOLIPID 20% IV FAT EMULSION 250 ML IV SCH (16:00)
[2022-01-07] MEDS: STOP CLINOLIPID SCH (21:33)
[2022-01-08] MEDS: METOPROLOL TARTRATE 1 MG/ML VIAL IV SCH ×3 (05:50→21:54)
[2022-01-08] MEDS ORDERED: DEXAMETHASONE SOD INJ 4 MG/ML VIAL ONE (06:31)
[2022-01-08] MEDS ORDERED: PROPOFOL IV EMULSION 10 MG/ML 20 ML VIAL IV ONE (06:31)
[2022-01-08] MEDS ORDERED: fentaNYL citrate 100 MCG/2 ML VIAL ONE (06:31)
[2022-01-08] MEDS ORDERED: ONDANSETRON INJ 2 MG/ML 2 ML VIAL ONE (06:31)
[2022-01-08] MEDS ORDERED: LIDOCAINE 2% MPF LOCAL 5 ML VIAL INFIL ONE (06:31)
[2022-01-08] MEDS ORDERED: SUGAMMADEX SODIUM 200 MG/2 ML VIAL IV ONE (06:39)
[2022-01-08] MEDS ORDERED: BUPIVACAINE 0.5 % 5 MG/1 ML MPF 30ML VIAL ONE (07:00)
[2022-01-08] MEDS ORDERED: BUPIVACAINE LIPOSOME 1.3% 266 MG/20 ML VIAL ONE (07:01)
--- NOTE | 2022-01-08 07:02 | Anesthesiology Consultation ---
Date of Service January 08, 2022 Assessment & Plan (1) Encounter for pre-operative examination: Chart Review Chart Review: Acceptable Risk for Surgery History Surgery Operation Date: 12/18/21 11:50 Proposed Procedures p Robotic Laparoscopic Assisted Partial Colectomy - Lucho Huff DO, FACS Operation Date: 01/08/22 07:00 Proposed Procedures p Laparoscopic Assisted Ileostomy Take Down - Lucho Huff DO, FACS Height/Weight Height: 6 ft Weight: 70.7 kg Allergies Allergy/AdvReac Type Severity Reaction Status Date / Time No Known Allergies Allergy Verified 12/18/21 10:03 Medications Home Medications Medication Instructions Recorded Confirmed Last Taken apixaban 5 mg tablet (Eliquis) 5 mg PO BID 11/05/21 12/18/21 12/16/21 aspirin 81 mg tablet,delayed 81 mg PO QPM 11/05/21 12/18/21 12/16/21 release (Adult Low Dose Aspirin) cyanocobalamin (vitamin B-12) 1,000 mcg PO QPM 11/05/21 12/18/21 12/17/21 13:00 1,000 mcg capsule folic acid 1 mg tablet 1 mg PO QPM 11/05/21 12/18/21 12/17/21 15:00 lisinopril 2.5 mg tablet 2.5 mg PO QPM 11/05/21 12/18/21 12/17/21 15:00 metoprolol succinate 25 mg 25 mg PO QPM 11/05/21 12/18/21 12/17/21 15:00 tablet,extended release 24 hr multivitamin 1 tab PO QPM 11/05/21 12/18/21 11/17/21 simvastatin 40 mg tablet 40 mg PO QPM 11/05/21 12/18/21 12/17/21 15:00 spironolactone 25 mg tablet 25 mg PO QPM 11/05/21 12/18/21 12/17/21 15:00 thiamine HCl (vitamin B1) 100 mg 100 mg PO QPM 11/05/21 12/18/21 12/17/21 15:00 tablet pantoprazole 40 mg tablet,delayed 40 mg PO DAILY #30 tabs 11/18/21 12/18/21 12/17/21 15:00 release metronidazole 500 mg tablet 500 mg PO ONCE #3 tabs 09/12/18/21 12/17/21 19:00 neomycin 500 mg tablet 1 g PO .COMPLEX pre-op #6 tabs 11/26/21 12/18/21 12/17/21 19:00 oxycodone-acetaminophen 5 mg-325 1 - 2 tab PO .q4-6h PRN pain, for 12/20/21 Unknown mg tablet (Percocet) initial therapy, max 6 tabs per day #15 tabs Active Medications Generic Name Dose Route Start Last Admin Trade Name Freq PRN Reason Stop Dose Admin Apixaban 2.5 mg 12/28/21 21:00 12/29/21 08:05 Apixaban 2.5 Mg Tab PO 01/27/22 20:59 2.5 mg BID CHANDAN Administration Aspirin 81 mg 12/19/21 21:00 12/24/21 15:40 Aspirin 81 Mg Ectab PO 01/18/22 20:59 81 mg DAILY@1500 CHANDAN Administration Folic Acid 1 mg 12/20/21 09:00 12/24/21 11:13 Folic Acid 1 Mg Tab PO 01/19/22 08:59 1 mg QAM CHANDAN Administration Pantoprazole Sodium 40 mg/ 10 mls @ 5 mls/min 12/22/21 21:00 01/07/22 21:34 Syringe IV 01/21/22 20:59 5 mls/min BID CHANDAN Administration Amino Acids/Dextrose 1,593.2 1,593.2 mls @ 66.38 mls/hr 01/07/22 16:00 01/07/22 16:33 ml/ Nutrition (Parenteral) IV 01/08/22 15:59 66.4 mls/hr .Q24H CHANDAN Administration Protocol Lisinopril 2.5 mg 12/27/21 09:00 12/27/21 08:20 Lisinopril 2.5 Mg Tab PO 01/26/22 08:59 2.5 mg QAM CHANDAN Administration Menthol 1 justin 01/04/22 15:50 01/05/22 08:52 Cough Drop (Sugar Free) Justin 24 Justin/1 Box BUCCAL 02/03/22 15:49 1 justin [id number] PRN Administration Sore Throat Metoprolol Tartrate 2.5 mg 12/31/21 14:00 01/08/22 05:50 Metoprolol Tartrate 1 Mg/Ml Vial IV 01/30/22 07:48 2.5 mg Q8H CHANDAN Administration Miscellaneous 1 each 12/21/21 08:59 01/07/22 08:18 Remove Nicoderm Patch N/A 01/20/22 08:58 Not Given DAILY@0859 [facility] Miscellaneous 1 each 01/01/22 22:00 01/07/22 21:33 Stop Clinolipid N/A 01/31/22 21:59 1 each DAILY@2200 CHANDAN Administration Multi-Ingredient Mouthwash/Gargle 5 ml 01/01/22 17:20 01/07/22 21:34 First - Mouthwash Blm 119 Ml PO 01/31/22 17:19 5 ml QID CHANDAN Administration Nicotine 7 mg 12/20/21 10:00 01/07/22 08:18 Nicotine 7 Mg/24 Hr Tdsy TD 01/19/22 09:59 Not Given QAM [facility] Ondansetron HCl 4 mg 12/18/21 19:41 12/29/21 17:38 Ondansetron Inj 2 Mg/Ml 2 Ml Vial IV 01/17/22 19:40 4 mg Q4H PRN Administration Nausea And Vomiting Oxycodone/Acetaminophen 1 tab 12/27/21 08:51 12/29/21 13:35 Oxycodone/Acetaminophen 5mg/325mg Tab PO 01/10/22 08:50 1 tab Q4H PRN Administration Pain 1-4 Phenol 2 sprays 12/31/21 15:58 01/04/22 20:14 Chloraseptic 1.4% Soln 180 Ml Btl MT 01/30/22 15:57 2 sprays Q2H PRN Administration sore throat Thiamine HCl 200 mg 12/20/21 21:00 12/24/21 11:15 Thiamine Hcl 100 Mg Tab PO 01/19/22 20:59 200 mg BID CHANDAN Administration NPO Date Last Intake of Fluids: 01/07/22 Time Last Intake of Fluids: 23:55 Date Last Intake of Solids: 12/18/21 Time Last Intake of Solids: 22:00 Past Medical History Medical History A-fib on eliquis; f/u Dr. Brown, [facility]-"on the list to get the Watchman's procedure" Adenocarcinoma of sigmoid colon Alcohol abuse Anemia hx Atrial fibrillation with RVR CAD (coronary artery disease) COPD (chronic obstructive pulmonary disease) Encounter for pre-operative examination History of COVID-19 10/27/21, home test, not hosp; sore throat, chills, fever>resolved. History of GI bleed "continues to lose blood internally, so that's the reason for the scopes" Hx of lipoma neck Hx of syncope "has happened twice, last time was 2 years ago. taken to ER, found to be dehydrated." Hyperlipidemia Hypertension NICM (nonischemic cardiomyopathy) Smoker Vitamin B deficiency Past Family History Family History Father Coronary heart disease Aunt No problems noted. Denies family history of Colorectal cancer Past Surgical History Surgical History H/O colonoscopy 11-18-21 Case History of colon surgery (12/18/21) Robotic Laparoscopic assisted low anterior resection with mobilization of sp lenic flexure and end-to-end anastomosis, diverting loop ileostomy- Lucho Huff DO, FACS History of esophagogastroduodenoscopy (EGD) Hx of cataract extraction Hx of tooth extraction rt/lt Social History Smoking Status: Current every day smoker tobacco type: cigarettes Smoking cigarettes per day: 6-10 Do You Dip or Chew Tobacco: No Hx Alcohol Use: Yes Alcohol type: beer alcohol intake frequency: 0-2 drinks per day Alcohol Intake Frequency Comment: 2-3 drinks per day Hx Substance Use: No substance use type: does not use Physical Exam Vital Signs Last Vital Signs Temp 36.9 C 01/08/22 06:26 Pulse 72 01/08/22 06:26 Resp 18 01/08/22 06:26 BP 115/59 L 01/08/22 06:26 Pulse Ox 95 01/08/22 06:26 O2 Del Method 01/08/22 06:26 O2 Flow Rate 1 12/21/21 11:48 Testing Laboratory Results 01/02/22 06:16 PT 11.0 Seconds (9.0-12.0) 12/19/21 05:48 INR 1.0 (0.9-1.1) 12/19/21 05:48 Blood Type O Positive 12/18/21 09:59 Antibody Screen NEGATIVE 12/18/21 09:59 Laboratory Tests 01/07/22 08:09 Potassium 4.0 Creatinine 0.74 Electrocardiogram episodes through admission of a fiib with rvr reverting to sinus Echocardiogram Date: 08/01/21 EF: 45-50%
[2022-01-08] MEDS ORDERED: LABETALOL HCL IV 5 MG/ML 20ML IV PRN (07:04)
[2022-01-08] MEDS ORDERED: PROMETHAZINE HCL 6.25 MG in SODIUM CHLORIDE 0.9% 50 ML IV PRN (07:04)
[2022-01-08] MEDS ORDERED: ONDANSETRON INJ 2 MG/ML 2 ML VIAL IV PRN (07:04)
[2022-01-08] MEDS ORDERED: ATROPINE SULFATE 0.1 MG/ML 10ML SYR IV PRN (07:04)
--- NOTE | 2022-01-08 07:05 | Surgery Progress Note ---
Date of Service January 08, 2022 Assessment & Plan (1) History of colon surgery: Plan: s/p LAR with DLI plan for laparoscopic ileostomy closure today risks reviewed Admission and Anticipated Discharge Date Admission Date: December 18, 2021 Subjective Status post LAR with DLI, no changes overnight. Physical Exam Gastrointestinal (Abdomen): Inspection/Auscultation: abdomen not distended Percussion/Palpation: abdomen soft has liquid ileostomy output Results & Data ([facility]) Vital Signs (Past 12 Hours) Vital Signs Temp Pulse Pulse Pulse Pulse Resp BP 01/08/22 06:26 36.9 C 72 18 115/59 L 01/08/22 03:22 37 C 69 18 117/62 01/07/22 23:12 37.0 C 75 18 118/63 01/07/22 23:02 72 01/07/22 20:00 01/07/22 19:49 37 C 73 18 118/66 Pulse Ox O2 Del Method 01/08/22 06:26 95 Room Air 01/08/22 03:22 94 Room Air 01/07/22 23:12 93 Room Air 01/07/22 23:02 01/07/22 20:00 Room Air 01/07/22 19:49 96 Room Air PG Care Time/CCT Total # of Minutes Spent Total Time Spent with Patient: Total time spent is greater than 50% in coordination of care (as documented) at patient's floor/unit and/or counseling patient: Coding Level of Care Code None Diagnoses History of colon surgery Z98.890
[2022-01-08] MEDS ORDERED: cefOXitin 2,000 MG in DEXTROSE 5% 50 ML IV STA (07:07)
[2022-01-08 07:20] LABS: BUN Creatinine Ratio 40.3 (10-20); Calcium 8.5 mg/dl (8.5-10.1); Creatinine Clr Calc Pharmacy 75.2 ml/min; Est GFR (African American) 98.6 ml/min; Est GFR (Non-African American) 85.1 ml/min; Magnesium 2.1 mg/dl (1.7-2.4); Phosphorus 3.4 mg/dl (2.5-4.9); Potassium 4.2 mmol/L (3.5-5.1)
[2022-01-08] MEDS ORDERED: ETOMIDATE 2 MG/ML 20 ML VIAL IV ONE (07:35)
[2022-01-08] MEDS ORDERED: KETAMINE 50 MG/5 ML SYRINGE ONE (08:01)
[2022-01-08] MEDS: FIRST - Mouthwash BLM 119 ML PO SCH ×4 (09:14→20:29)
[2022-01-08] MEDS: NICOTINE 7 MG/24 HR TDSY TD SCH (09:18)
--- NOTE | 2022-01-08 09:19 | Operative Report ---
PG Post Operative Report Pre & Post Diagnosis Operation Date: 01/08/22 07:00 Pre-Op Diagnosis: COLON CANCER, diverting loop ileostomy Post-Op Diagnosis: COLON CANCER, diverting loop ileostomy I identified the patient and participated in the time-out.: Yes Procedure Operation Date: 01/08/22 07:00 Actual Procedures p Laparoscopic Assisted Ileostomy Take Down - Lucho Huff DO, DIMITRIS Surgeon Lucho Huff DO, FACS [employer] Curator Nataliia Hogan Estimated Blood Loss 5 Findings Consistent with Post-Op Diagnosis Diagnostic laparoscopy performed, no significant adhesions or abnormalities in the abdomen. Ileostomy taken down, cytocide functional end-to-end anastomosis created with purple loaded stapler and oversewn with 3-0 silk Lembert's. Fascia closed in layers, reentered laparoscopically and anastomosis appeared healthy. Exparel injected. Specimens Ileostomy Anesthesia Type General Complications none Disposition Accompanied Patient To Recovery: No Disposition: Recovery Room Indications 81-year-old male status post low anterior resection with diverting loop ileostomy. Initially had good return of bowel function however developed ileostomy outlet obstruction which resolved with Contreras catheter placement. CT scan showed that the anastomosis was intact and showed no evidence of leak. To prevent further issues, we recommended proceeding with ileostomy takedown. Plan for laparoscopic assisted ileostomy closure. The risks of the procedure were discussed, all questions were answered, and the patient agreed to proceed with surgery as planned. Description of Procedure The patient was properly identified, consented, and taken to the operating room where he was placed in the supine position. General endotracheal anesthesia was induced. SCDs and a safety belt were placed. Preoperative antibiotics were administered. A Contreras catheter was placed. The Contreras catheter that was inside of the ileostomy was taken out. The afferent limb of the ileostomy was closed with a 3-0 silk [id number]. The patient's abdomen was prepped and draped in the standard sterile fashion. A 4 x 4 piece of gauze was placed over the ileostomy and Ioban was placed across the abdomen. Surgical timeout was performed and all parties were in agreement that this was the correct patient and procedure to be performed and we continued as planned. An incision was made in the left upper quadrant and the Veress needle was inserted. Saline drop test confirmed entry into the abdomen. The abdomen was insufflated with carbon dioxide which the patient tolerated without incident. The abdomen was then entered using a 5 mm scope and the Optiview technique. No damage from initial Veress needle or trocar placement was noted. The abdomen was inspected and there were no significant adhesions or abnormalities within the abdomen. The ileostomy was visible and appeared intact. The low midline incision had no evidence of hernias. As there was no adhesions, at this point we turned our attention to the takedown of the ileostomy. Laparoscopy was ceased. An incision was made with cautery in the skin around the ileostomy. This was deepened down through the subcutaneous tissue. The ileostomy was circumferentially dissected down to the level of the fascia. It was freed of investing tissue. Healthy bowel was then delivered through the fascia. Windows were created in the mesentery of the proximal and distal limbs. The bowel was divided using a 60 mm purple loaded Endo LAURA stapler x2. The mesentery was resected with the Sonicision. The ileostomy was passed off the table as specimen, and we then proceeded to create the anastomosis. A [id number] functional end-to-end anastomosis was created. The bowel was aligned to ensure there was no twisting of the mesentery. A corner of the antimesenteric staple lines were excised. A 60 mm purple loaded Endo LAURA stapler was fired x2 down both limbs of the bowel to create the anastomosis. The common enterotomy and staple lines were then excised and closed using the 60 mm Endo LAURA purple load stapler x2. The anastomosis was widely patent. Staple lines were reinforced with interrupted 3-0 silk Lembert sutures. The anastomosis was checked for leaks and none were found. The mesenteric defect was closed with a running 2-0 Vicryl suture. The anastomosis was then delivered back into the abdomen and appeared healthy with good blood supply and no evidence of leak. The posterior fascia was closed with a running #0 PDS suture. The wound was irrigated. The anterior fascia was closed with a running #0 PDS suture. The wound was again irrigated and hemostasis was excellent. Exparel was injected in the fascia and skin incision. We reentered laparoscopically and the anastomosis appeared healthy with no twisting or other abnormalities. Laparoscopy was ceased and the 5 mm port was removed. The ileostomy site incision was loosely closed with interrupted cedrick. Telfa bhavana were then placed along with a sterile dressing. The 5 mm port site was closed with 4-0 Monocryl. Dermabond was placed over this incision. Contreras catheter was removed. The patient was extubated in the operating room and taken to the PACU where he recovered without apparent incident. All sponge, instrument and needle counts were correct at the conclusion of the procedure. The patient tolerated the procedure well. The physician's entry level assistant manager was present and scrubbed for the entirety of the case. She was critical in positioning the patient, prepping and draping, retraction and exposure, driving the laparoscope, takedown of the ileostomy and creation of the anastomosis, closure the incisions, and placement of the dressings. I attest to the content of the Intraoperative Record and any orders documented therein. Any exceptions are noted below.
[2022-01-08] MEDS ORDERED: ROCURONIUM BROMIDE 10 MG/ML 5 ML VIAL IV ONE (09:20)
[2022-01-08] MEDS: HYDROmorphone INJ 1 MG/ML SYRINGE IV PRN ×3 (09:28→09:39)
--- NOTE | 2022-01-08 09:58 | Anesthesiology Progress Note ---
Date of Service January 08, 2022 Anesthesia Post Procedure Vital Signs Vital Signs: Temp Pulse Pulse Pulse Pulse Resp BP 01/08/22 09:36 74 15 124/64 01/08/22 09:46 70 15 121/62 01/08/22 09:25 73 15 134/72 01/08/22 09:16 36.3 C L 77 12 148/74 H 01/08/22 08:00 65 01/08/22 06:26 36.9 C 72 18 115/59 L 01/08/22 03:22 37 C 69 18 117/62 01/07/22 23:12 37.0 C 75 18 118/63 01/07/22 23:02 72 01/07/22 20:00 01/07/22 19:49 37 C 73 18 118/66 01/07/22 15:32 63 01/07/22 15:08 36.6 C 61 18 112/56 L 01/07/22 13:21 66 01/07/22 11:23 36.6 C 65 19 111/58 L Pulse Ox O2 Del Method O2 Flow Rate 01/08/22 09:36 94 Nasal Cannula 2 01/08/22 09:46 95 Nasal Cannula 2 01/08/22 09:25 95 Oxymask 5 01/08/22 09:16 95 Oxymask 5 01/08/22 08:00 01/08/22 06:26 95 Room Air 01/08/22 03:22 94 Room Air 01/07/22 23:12 93 Room Air 01/07/22 23:02 01/07/22 20:00 Room Air 01/07/22 19:49 96 Room Air 01/07/22 15:32 01/07/22 15:08 95 Room Air 01/07/22 13:21 01/07/22 11:23 95 Room Air Pain Intensity Abdomen: Pain Intensity: 3 Transfer of Care Handoff Completed per policy Notes Mental Status: alert / awake / arousable Patient Amnestic to Procedure: Yes Nausea / Vomiting: adequately controlled Pain: adequately controlled Airway Patency, RR, SpO2: stable & adequate BP & HR: stable & adequate Hydration State: stable & adequate Anesthetic Complications: no major complications apparent
[2022-01-08] MEDS ORDERED: MoRPHine SULFATE 4 MG/ML 1 ML CARP\\VIAL IV PRN (10:12)
[2022-01-08] MEDS: PANTOprazole 40 MG in SYRINGE 0 ML IV SCH ×2 (10:30→21:53)
[2022-01-08] MEDS: cefOXitin 2,000 MG in DEXTROSE 5% 50 ML IV SCH ×3 (11:47→21:53)
[2022-01-08] MEDS ORDERED: CLINOLIPID 20% IV FAT EMULSION 250 ML IV SCH (16:00)
[2022-01-08] MEDS ORDERED: [UNRECOGNIZED DRUG - OTHER] IV SCH (16:00)
[2022-01-08] MEDS ORDERED: CENTRAL TPN IV SCH (16:00)
[2022-01-08] MEDS ORDERED: AMINO ACID 8% IV SCH (16:00)
[2022-01-08] MEDS: THIAMINE HCL 100 MG TAB PO SCH (20:29)
[2022-01-08] MEDS: STOP CLINOLIPID SCH (21:46)
[2022-01-08] MEDS: MoRPHine SULFATE 2 MG/ML CARP IV PRN (21:55)
[2022-01-09] MEDS: cefOXitin 2,000 MG in DEXTROSE 5% 50 ML IV SCH (04:40)
[2022-01-09 06:00] LABS: Basophils # (auto) 0.03 K/uL (0-0.2); Basophils % (auto) 0.3 %; Eosinophils # (auto) 0.03 K/uL (0-0.50); Eosinophils % (auto) 0.3 %; Hematocrit (blood only) 33.8 % (40.1-51.0); Hemoglobin 10.8 g/dl (14.0-18.0); Immature Granulocytes # (auto) 0.11 K/uL (0.00-0.02); Lymphocytes # (auto) 0.54 K/uL (1.2-3.4); Lymphocytes % (auto) 5.1 %; Mean Corpuscular Hemoglobin 28.3 pg (25.0-34.0); Mean Corpuscular Volume 88.5 fL (80.0-100.0); Mean Platelet Volume 9.1 fL (9.4-12.4); Monocytes # (auto) 0.98 K/uL (0.24-0.82); Monocytes % (auto) 9.3 %; Neutrophils # (auto) 8.89 K/uL (1.4-6.5); Platelet Count 274 K/uL (130-400); RDW Coefficient of Variation 15.8 % (11.5-14.5); RDW Standard Deviation 51.6 fL (36.4-46.3); Red Blood Count 3.82 M/uL (4.63-6.08); White Blood Count 10.58 K/ul (4.8-10.8)
[2022-01-09] MEDS: oxyCODONE/ACETAMINOPHEN 5mg/325mg TAB PO PRN (06:13)
[2022-01-09] MEDS: METOPROLOL TARTRATE 1 MG/ML VIAL IV SCH (06:13)
[2022-01-09 06:18] LABS: BUN Creatinine Ratio 38.7 (10-20); Calcium 8.5 mg/dl (8.5-10.1); Est GFR (African American) 99.7 ml/min; Potassium 4.5 mmol/L (3.5-5.1)
[2022-01-09] MEDS: FIRST - Mouthwash BLM 119 ML PO SCH ×4 (08:49→22:09)
[2022-01-09] MEDS: NICOTINE 7 MG/24 HR TDSY TD SCH ×2 (08:50→08:56)
[2022-01-09] MEDS: PANTOprazole 40 MG in SYRINGE 0 ML IV SCH (08:50)
[2022-01-09] MEDS: FOLIC ACID 1 MG TAB PO SCH (08:50)
[2022-01-09] MEDS: THIAMINE HCL 100 MG TAB PO SCH ×2 (08:50→22:09)
[2022-01-09] MEDS ORDERED: ENOXAPARIN INJ 40 MG/0.4 ML SYR SQ SCH (09:00)
--- NOTE | 2022-01-09 09:18 | Surgery Progress Note ---
Date of Service January 09, 2022 Assessment & Plan (1) History of colon surgery: Plan: POD#1 takedown of ileostomy WBC 10.5, Cr 0.7, Hbg 10.8 Continue clears for now, consider fulls later today. TPN until taking in enough orally Lovenox resumed, will consider resuming his home eliquis in next day or so Dressings c/d/i, likely change telfa wick packing tomorrow Awaiting return of bowel function Admission and Anticipated Discharge Date Admission Date: December 18, 2021 Supervising Physician Co-Signing Physician Notes Patient seen examined, labs reviewed, agree with above. Status post LAR with diverting loop ileostomy, POD #1 laparoscopic assisted ileostomy takedown. No return of bowel function yet, however he did tolerate clear liquids. His pain is well controlled. He is sitting in a chair. On exam he is afebrile with stable vitals. His abdomen is soft, nondistended. Dressing in place, clean dry and intact over ileostomy takedown site and right lower quadrant. Port sites without infection. Low midline incision well-healed. Labs unremarkable. We will slowly advance diet, may have full liquids later today. Advised to take it slow. Likely discharge once return of bowel function. Continue TPN for now. We will restart oral anticoagulation today. Subjective Patient doing fairly well. Tolerating clears although they are not very appetizing to him at this point. Denies nausea/vomiting. Pain present, but manageable. No return of bowel function yet. Physical Exam Physical Exam: awake/alert Gastrointestinal (Abdomen): Inspection/Auscultation: + abdomen distended (mild) and + abdominal surgical incision (c/d/i) Percussion/Palpation: + abdomen tender (expected quinn incisional discomfort to palpation ) and abdomen soft Results & Data ([facility]) Vital Signs (Past 12 Hours) Vital Signs Temp Pulse Pulse Resp BP Pulse Ox O2 Del Method 01/09/22 07:32 37.1 C 65 17 144/74 H 94 Room Air 01/09/22 03:57 37.0 C 74 18 118/61 96 Room Air 01/08/22 23:10 63 01/08/22 22:58 37.1 C 63 18 126/68 99 Nasal Cannula O2 Flow Rate 01/09/22 07:32 01/09/22 03:57 01/08/22 23:10 01/08/22 22:58 1 PG Care Time/CCT Total # of Minutes Spent Total Time Spent with Patient: Total time spent is greater than 50% in coordination of care (as documented) at patient's floor/unit and/or counseling patient: Coding Level of Care Code None Diagnoses History of colon surgery Z98.890
[2022-01-09] MEDS: ASPIRIN 81 MG ECTAB PO SCH (15:19)
[2022-01-09] MEDS ORDERED: CENTRAL TPN IV SCH (16:00)
[2022-01-09] MEDS ORDERED: AMINO ACID 8% IV SCH (16:00)
[2022-01-09] MEDS ORDERED: CLINOLIPID 20% IV FAT EMULSION 250 ML IV SCH (16:00)
[2022-01-09] MEDS ORDERED: [UNRECOGNIZED DRUG - OTHER] IV SCH (16:00)
[2022-01-09] MEDS: STOP CLINOLIPID SCH (22:00)
[2022-01-09] MEDS: APIXABAN 5 MG TABLET PO SCH (22:08)
[2022-01-09] MEDS: PANTOprazole 40 MG TAB PO SCH (22:09)
[2022-01-09] MEDS: METOPROLOL SUCC 25MG EXT REL TAB PO SCH (22:09)
[2022-01-10] MEDS: MoRPHine SULFATE 2 MG/ML CARP IV PRN ×2 (03:30→09:51)
[2022-01-10 06:24] LABS: Basophils # (auto) 0.02 K/uL (0-0.2); Basophils % (auto) 0.2 %; Eosinophils % (auto) 1.1 %; Hematocrit (blood only) 33.2 % (40.1-51.0); Hemoglobin 10.5 g/dl (14.0-18.0); Immature Granulocytes # (auto) 0.12 K/uL (0.00-0.02); Immature Granulocytes % (auto) 1.3 %; Lymphocytes # (auto) 0.71 K/uL (1.2-3.4); Mean Corpuscular Hemoglobin 27.9 pg (25.0-34.0); Mean Corpuscular Hgb Conc 31.6 g/dL (32.0-36.0); Mean Corpuscular Volume 88.3 fL (80.0-100.0); Mean Platelet Volume 9.2 fL (9.4-12.4); Monocytes # (auto) 0.77 K/uL (0.24-0.82); Monocytes % (auto) 8.6 %; Neutrophils # (auto) 7.19 K/uL (1.4-6.5); Neutrophils % (auto) 80.8 %; Platelet Count 262 K/uL (130-400); RDW Coefficient of Variation 16.1 % (11.5-14.5); RDW Standard Deviation 52.8 fL (36.4-46.3); Red Blood Count 3.76 M/uL (4.63-6.08); White Blood Count 8.91 K/ul (4.8-10.8)
[2022-01-10 06:50] LABS: BUN Creatinine Ratio 40.6 (10-20); Calcium 8.5 mg/dl (8.5-10.1); Creatinine Clr Calc Pharmacy 87.8 ml/min; Est GFR (African American) 103.2 ml/min; Phosphorus 3.6 mg/dl (2.5-4.9); Potassium 4.4 mmol/L (3.5-5.1)
[2022-01-10] MEDS: NICOTINE 7 MG/24 HR TDSY TD SCH (08:58)
[2022-01-10] MEDS ORDERED: oxyCODONE/ACETAMINOPHEN 5mg/325mg TAB PO PRN (08:59)
[2022-01-10] MEDS: FIRST - Mouthwash BLM 119 ML PO SCH ×4 (09:00→20:33)
[2022-01-10] MEDS: THIAMINE HCL 100 MG TAB PO SCH ×2 (09:00→20:35)
[2022-01-10] MEDS: APIXABAN 5 MG TABLET PO SCH ×2 (09:00→20:33)
[2022-01-10] MEDS: METOPROLOL SUCC 25MG EXT REL TAB PO SCH (09:00)
[2022-01-10] MEDS: PANTOprazole 40 MG TAB PO SCH ×2 (09:00→20:34)
[2022-01-10] MEDS: FOLIC ACID 1 MG TAB PO SCH (09:00)
--- NOTE | 2022-01-10 09:01 | Surgery Progress Note ---
Date of Service January 10, 2022 Assessment & Plan (1) History of colon surgery: Plan: POD#2 takedown of ileostomy labs stable change dressing later cont TPN, advance diet once bowel function returns Admission and Anticipated Discharge Date Admission Date: December 18, 2021 Supervising Physician Co-Signing Physician Notes Patient seen examined, labs reviewed, agree with above. Status post LAR with diverting loop ileostomy, POD #2 laparoscopic assisted ileostomy takedown. Overall doing well. His pain is well controlled. No flatus or bowel movement yet. He does feel like things are moving and does not feel bloated. He is tolerating full liquids but the choices do not seem appetizing to him. On exam he is afebrile with stable vitals. His abdomen is soft, nondistended. Telfa bhavana in ileostomy takedown incision exchanged. No evidence of infection. Clean dressing applied. Port sites without infection. Low midline incision well-healed. Labs unremarkable. Continue with full liquids unless has more meaningful return of bowel function or is feeling hungry, at which point we will advance him to low fiber diet. Continue oral anticoagulation. Out of bed to chair, ambulate. Continue TPN. We will exchange the Telfa bhavana on Thursday or just remove them. Dr. Mckee covering over the weekend. Subjective no flatus, feels like may have BM, no nausea but doesn't like full liquid selection, sitting in chair Physical Exam Gastrointestinal (Abdomen): Inspection/Auscultation: + abdominal surgical incision (dressing intact); abdomen not distended Results & Data ([facility]) Vital Signs (Past 12 Hours) Vital Signs Temp Pulse Pulse Pulse Resp BP Pulse Ox 01/10/22 08:19 37.1 C 73 20 123/61 94 01/10/22 03:26 36.8 C 68 20 136/72 96 01/09/22 23:37 80 01/09/22 22:32 36.5 C 73 20 124/68 93 O2 Del Method 01/10/22 08:19 Room Air 01/10/22 03:26 Room Air 01/09/22 23:37 01/09/22 22:32 Room Air PG Care Time/CCT Total # of Minutes Spent Total Time Spent with Patient: Total time spent is greater than 50% in coordination of care (as documented) at patient's floor/unit and/or counseling patient: Coding Level of Care Code None Diagnoses History of colon surgery Z98.890
--- NOTE | 2022-01-10 10:47 | Pharmacy Report ---
PHA: Parenteral Nutrition Con - Date of Service January 10, 2022 - Scope Pharmacy was consulted on 12/30/21 to manage parenteral nutrition orders for this patient. - Subjective The patient is currently on day #12 of parenteral nutrition (day #8 of central) for adenocarcinoma of sigmoid colon s/p resection and diverting ileostomy. - Objective Height: 6 ft Weight: 73.9 kg Diet: Full Liquid Intake & Output (24hrs):: Intake & Output 01/08/22 01/09/22 01/10/22 01/11/22 06:59 06:59 06:59 06:59 Intake Total 2321.2 / 2321.2 3803.2 / 3803.2 2703.2 / 2703.2 Output Total 3050 / 3050 955 / 955 1600 / 1600 Balance -728.8 / -728.8 2848.2 / 2848.2 1103.2 / 1103.2 Weight 70.7 kg 73.2 kg 73.9 kg Laboratory Data (Last 24 Hr):: 01/10/22 06:08 Sodium 136 Potassium 4.4 Chloride 102 Carbon Dioxide 30 BUN 28 H Creatinine 0.69 Glucose 106 H Calcium 8.5 Phosphorus 3.6 Magnesium 2.0 Nutrition Assessment:: Please refer to the Notes section of the EMR for 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 - Assessment 01/10/22: * Day #8 of TPN (#12 of PN overall). * Diet was advanced on Thursday (01/08/22) to full liquids. Patient is tolerating but not adequate enough to discontinue TPN yet. Per surgery "cont TPN, advance diet once bowel function returns". Expecting TPN to be continued throughout the weekend at this point. * Has been at goal macronutrients for several days now and tolerating well. * Electrolytes have been stable to point. Will adjust BMP, Mg and Phos labs to every other day starting tomorrow. - Plan For day [#] of PN administration, the following will be ordered: Macronutrients Amino acids [] grams/day Dextrose [] grams/day Lipids [] grams/day Micronutrients Combined electrolytes [] mL - contains 35 mEq Na, 20 meq K, 4.5 mEq Ca, 5 mEq Mg, 35 mEq Cl, 29.5 mEq acetate per 20 mL Sodium phosphate [] MMol Sodium chloride [] mEq Sodium acetate [] mEq Potassium phosphate [] mMol Potassium chloride [] mEq Potassium acetate [] mEq Magnesium sulfate [] mEq Calcium gluconate [] mEq Multivitamins 10 mL Trace Elements 1 mL Additional additives: Total volume [] mL to be infused over [] hrs will provide [] kcal/day Final osmolarity [] mOsm/L (maximum for PPN is 900 mOsm/L) Labs, as indicated, will be ordered per protocol Pharmacy will continue to follow and adjust parenteral nutrition orders on a daily basis. Thank you for allowing us to participate in the care of this patient.
[2022-01-10] MEDS ORDERED: CENTRAL TPN IV SCH (16:00)
[2022-01-10] MEDS ORDERED: [UNRECOGNIZED DRUG - OTHER] IV SCH (16:00)
[2022-01-10] MEDS ORDERED: AMINO ACID 8% IV SCH (16:00)
[2022-01-10] MEDS ORDERED: CLINOLIPID 20% IV FAT EMULSION 250 ML IV SCH (16:00)
[2022-01-10] MEDS: ASPIRIN 81 MG ECTAB PO SCH (16:18)
[2022-01-10] MEDS: STOP CLINOLIPID SCH (22:00)
[2022-01-11 06:51] LABS: BUN Creatinine Ratio 44.3 (10-20); Calcium 8.5 mg/dl (8.5-10.1); Creatinine Clr Calc Pharmacy 99.3 ml/min; Est GFR (African American) 108.6 ml/min; Est GFR (Non-African American) 93.7 ml/min; Phosphorus 3.8 mg/dl (2.5-4.9); Potassium 3.7 mmol/L (3.5-5.1)
--- NOTE | 2022-01-11 06:55 | Surgery Progress Note ---
Date of Service January 11, 2022 Assessment & Plan (1) History of colon surgery: Plan: Recent ileostomy closure Patient currently on full liquids and passing flatus with small bowel movement Abdomen soft We will advance to low fiber diet and monitor progress Admission and Anticipated Discharge Date Admission Date: December 18, 2021 Results & Data ([facility]) Vital Signs (Past 12 Hours) Vital Signs Temp Pulse Pulse Pulse Resp BP Pulse Ox 01/11/22 03:40 37.1 C 74 18 124/68 94 01/10/22 23:30 75 01/10/22 22:28 37.4 C 76 20 140/78 94 01/10/22 20:22 37.0 C 69 18 142/78 H 95 O2 Del Method 01/11/22 03:40 Room Air 01/10/22 23:30 01/10/22 22:28 Room Air 01/10/22 20:22 Room Air PG Care Time/CCT Total # of Minutes Spent Total Time Spent with Patient: Total time spent is greater than 50% in coordination of care (as documented) at patient's floor/unit and/or counseling patient: Coding Level of Care Code None Diagnoses History of colon surgery Z98.890
[2022-01-11] MEDS: THIAMINE HCL 100 MG TAB PO SCH ×2 (09:14→20:21)
[2022-01-11] MEDS: APIXABAN 5 MG TABLET PO SCH ×2 (09:14→20:21)
[2022-01-11] MEDS: METOPROLOL SUCC 25MG EXT REL TAB PO SCH (09:14)
[2022-01-11] MEDS: PANTOprazole 40 MG TAB PO SCH ×2 (09:14→20:21)
[2022-01-11] MEDS: NICOTINE 7 MG/24 HR TDSY TD SCH (09:14)
[2022-01-11] MEDS: FIRST - Mouthwash BLM 119 ML PO SCH ×4 (09:15→20:21)
[2022-01-11] MEDS: FOLIC ACID 1 MG TAB PO SCH (09:16)
[2022-01-11] MEDS: ASPIRIN 81 MG ECTAB PO SCH (15:30)
[2022-01-11] MEDS ORDERED: [UNRECOGNIZED DRUG - OTHER] IV SCH (16:00)
[2022-01-11] MEDS ORDERED: CENTRAL TPN IV SCH (16:00)
[2022-01-11] MEDS ORDERED: AMINO ACID 8% IV SCH (16:00)
[2022-01-11] MEDS ORDERED: CLINOLIPID 20% IV FAT EMULSION 250 ML IV SCH (16:00)
[2022-01-11] MEDS: STOP CLINOLIPID SCH (22:00)
--- NOTE | 2022-01-12 05:14 | Surgery Progress Note ---
Date of Service January 12, 2022 Assessment & Plan (1) Adenocarcinoma of sigmoid colon: Plan: Status post low anterior resection on 12/08/2021; status post ileostomy reversal on 01/08/2022 Continue analgesics as needed Continue antiemetics as needed Continue diet as tolerated; continue to supplement with TPN until certain oral intake is adequate Continue mobilization as able Patient is receiving Eliquis for history of atrial fibrillationthis will also serve as DVT prevention Admission and Anticipated Discharge Date Admission Date: December 18, 2021 Supervising Physician Co-Signing Physician Notes Dr. Mckeepatient is tolerating his diet His abdomen is flat and soft We will continue TPN until the current bag is complete Hopefully case management can help with discharge in the next 1 to 2 days Subjective Patient is resting comfortably in bed. He denies any shortness of breath, chest pain, or palpitations. He denies significant abdominal pain. He notes he is tolerating solid food without abdominal pain. He denies any nausea or vomiting. He notes he has been moving his bowels since his surgery. Physical Exam Gastrointestinal (Abdomen): Abdomen is soft and nondistended with positive bowel sounds. Incisions are clean, dry, intact. Ileostomy closure site is intact with cedrick and drain in place. Results & Data ([facility]) Vital Signs (Past 12 Hours) Vital Signs Temp Pulse Pulse Resp BP BP Pulse Ox 01/12/22 02:47 36.5 C 71 16 121/74 95 01/11/22 23:29 79 01/11/22 22:30 37.2 C 83 18 137/71 96 01/11/22 19:04 37.1 C 76 18 127/65 95 O2 Del Method 01/12/22 02:47 01/11/22 23:29 01/11/22 22:30 Room Air 01/11/22 19:04 PG Care Time/CCT Total # of Minutes Spent Total Time Spent with Patient: Total time spent is greater than 50% in coordination of care (as documented) at patient's floor/unit and/or counseling patient: Coding Level of Care Code None Diagnoses Adenocarcinoma of sigmoid colon C18.7
[2022-01-12] MEDS: THIAMINE HCL 100 MG TAB PO SCH ×2 (07:55→20:27)
[2022-01-12] MEDS: FOLIC ACID 1 MG TAB PO SCH (07:56)
[2022-01-12] MEDS: APIXABAN 5 MG TABLET PO SCH ×2 (07:56→20:27)
[2022-01-12] MEDS: PANTOprazole 40 MG TAB PO SCH ×2 (07:56→20:27)
[2022-01-12] MEDS: METOPROLOL SUCC 25MG EXT REL TAB PO SCH (07:56)
[2022-01-12] MEDS: NICOTINE 7 MG/24 HR TDSY TD SCH (07:58)
[2022-01-12] MEDS: FIRST - Mouthwash BLM 119 ML PO SCH ×4 (10:11→20:27)
[2022-01-12] MEDS: ASPIRIN 81 MG ECTAB PO SCH (14:49)
[2022-01-12] MEDS: ACETAMINOPHEN 325 MG TAB PO PRN ×2 (17:00→23:37)
[2022-01-13 07:55] LABS: BUN Creatinine Ratio 31.6 (10-20); Calcium 8.3 mg/dl (8.5-10.1); Creatinine Clr Calc Pharmacy 80.7 ml/min; Est GFR (African American) 99.2 ml/min; Est GFR (Non-African American) 85.6 ml/min; Magnesium 1.9 mg/dl (1.7-2.4); Phosphorus 3.4 mg/dl (2.5-4.9); Potassium 3.1 mmol/L (3.5-5.1)
[2022-01-13] MEDS: PANTOprazole 40 MG TAB PO SCH (07:57)
[2022-01-13] MEDS: NICOTINE 7 MG/24 HR TDSY TD SCH (07:57)
[2022-01-13] MEDS: APIXABAN 5 MG TABLET PO SCH (07:57)
[2022-01-13] MEDS: THIAMINE HCL 100 MG TAB PO SCH (07:58)
[2022-01-13] MEDS: FOLIC ACID 1 MG TAB PO SCH (07:58)
[2022-01-13] MEDS: METOPROLOL SUCC 25MG EXT REL TAB PO SCH (07:58)
[2022-01-13] MEDS: FIRST - Mouthwash BLM 119 ML PO SCH (08:01)
[2022-01-13] MEDS: ACETAMINOPHEN 325 MG TAB PO PRN (08:01)
--- NOTE | 2022-01-13 09:04 | Surgery Progress Note ---
Date of Service January 13, 2022 Assessment & Plan (1) Adenocarcinoma of sigmoid colon: Plan: Status post low anterior resection on 12/08/2021; status post ileostomy reversal on 01/08/2022 tolerating diet off TPN Tylenol for pain ok for d/c this afternoon Admission and Anticipated Discharge Date Admission Date: December 18, 2021 Subjective tolerating diet, multiple BMs Physical Exam Gastrointestinal (Abdomen): Inspection/Auscultation: + abdominal surgical incision (some drainage); abdomen not distended Results & Data ([facility]) Vital Signs (Past 12 Hours) Vital Signs Temp Pulse Pulse Pulse Resp BP Pulse Ox 01/13/22 07:16 36.7 C 70 18 128/64 93 01/13/22 04:05 36.9 C 73 18 106/50 L 94 01/12/22 23:45 69 01/12/22 23:45 01/12/22 23:30 36.8 C 73 20 163/93 H 95 O2 Del Method 01/13/22 07:16 Room Air 01/13/22 04:05 Room Air 01/12/22 23:45 01/12/22 23:45 Room Air 01/12/22 23:30 Room Air PG Care Time/CCT Total # of Minutes Spent Total Time Spent with Patient: Total time spent is greater than 50% in coordination of care (as documented) at patient's floor/unit and/or counseling patient: Coding Level of Care Code None Diagnoses Adenocarcinoma of sigmoid colon C18.7
--- NOTE | 2022-01-17 15:03 | Discharge Summary ---
Date of Service January 13, 2022 Principal Diagnosis colon cancer Discharge Exam awake/alert, no distress Constitutional no acute distress Respiratory normal respiratory effort Gastrointestinal (Abdomen) Inspection/Auscultation: + abdominal surgical incision (some drainage at old ostomy site) Percussion/Palpation: abdomen soft; abdomen nontender Discharge Data Allergies Allergy/AdvReac Type Severity Reaction Status Date / Time No Known Allergies Allergy Verified 12/18/21 10:03 Consultations 12/19/21 22:53 Consult Hospitalist Routine 12/20/21 06:07 Consult Cardiology Routine Procedures Performed Operation Date: 12/18/21 11:50 Actual Procedures p Robotic Laparoscopic Assisted Lower anterior resection with mobilization of splenic flexure, diverting loop ileostomy(Not Applicable) - Lucho Huff DO, FACS Operation Date: 01/08/22 07:00 Actual Procedures p Laparoscopic Assisted Ileostomy Take Down(Not Applicable) - Lucho Huff DO, FACS Ordered Studies 01/01/22 13:33 CT Abd and Pelvis [CT abd pelvis oral and IV con] Urgent Hospital Course (1) Colon cancer: This is an 81yM with a PMH of COPD, afib on eliquis, smoker, CHF, alcohol use, and colon cancer who presented to the [facility] on 12/18/21 for planned surgical resection of his colonic mass. The patient went to the OR with Dr. Huff and underwent a robotic assisted low anterior resection with end to end anastomosis and diverting ileostomy. The patient tolerated the procedure well, see op note for full details. He was transferred to the med/surg unit in stable condition with post op abx, ROSALIE drain, clements catheter, and NGT. NGT and clements catheter were removed on POD#1 and the patient started on clear liquids. That evening he went into afib and the hospitalists were consulted for their assistance along with cardiology who followed along with the patient for the majority of his hospitalization. They helped us with managing his cardiac meds and afib thr oughout his stay. He was ultimately advanced to full liquids when he started developing nausea with bouts of emesis. Initially made NPO for bowel rest, but due to ongoing symptoms an NGT was placed on 12/24 while awaiting return of bowel function. He did begin having liquid stool in the ileostomy bag and an NGT clamp trial was performed and it was able to be removed. Patient's diet was slowly advanced thereafter. He ended up having high output in his ileostomy causing an CHANDNI and was given rehydration with IVF with improvement. Unfortunately his ileostomy output tapered off and diet was backed down again. On 12/29 he started having nausea/vomiting and a KUB was obtained that revealed concern for ileus vs obstruction. An NGT was replaced. Patient was started on PPN then transitioned to TPN via PICC line while NPO. Patient continued not having meaningful output via his ostomy over the course of a few days, therefore a CT a/p was performed that revealed a partial obstruction at the level of his ileostomy. Contrast was also given per rectum which revealed an intact anastomosis without evidence of leak. The surgeon placed a clements catheter in the ostomy which helped decompress the area. Plans discussed with patient and family for the patient to undergo ileostomy reversal this admission and they were in agreement. In the interim while awaiting surgery his ostomy did begin working some again and the NGT was able to be removed and diet advanced to liquids. Ultimately on 01/08 the patient went to the OR with Dr. Huff for an ileostomy reversal. The patient tolerated the procedure well, see op note for full details. Post operatively he did well. His diet was advanced slowly as his bowel function returned. He started passing flatus and having BMs and diet was eventually advanced to low fiber. TPN was able to be discontinued. His cardiac meds were converted to PO and he was able to resume his eliquis. Old ostomy site was wicked with tefla that was changed during his admission. On 01/13 his pain was controlled, wounds c/d/i, diet tolerated and he was discharged to home with plans for follow up in clinic and with cardiology as an outpatient. Plan 20 Total Time Total Time Spent Total Time Spent (In Minutes): 20 Discharge Plan Discharge Items Patient Disposition: Home - Self-Care Reason For Visit: COLON CANCER Discharge Diagnosis: low anterior resection with diverting ileostomy ileostomy take down Activity: Per Instructions section Lifting: No more than 10 pounds Bathing Comment: may shower; no soaking in tubs/pools Exercise/Sports: Wait until after follow-up appointment Driving/Machine Use: when cleared by surgeon; no driving while taking narcotics for pain Non-emergency contact: Surgeon Call non-emergency contact if: you have any medication questions, your pain is worsening, your pain is concerning for you, you have a fever, your temperature is above 101.5, your wound has increased redness, your wound has increased drainage and your wound pain has increased Follow-up/Referrals: Lucho Huff DO, FACS [Physician] - 01/24/22 9:15 am (Please call to schedule follow up in clinic within 2 weeks ) Rivas Malcolm MD [Primary Care Provider] - 01/20/22 9:30 am Diet: Low Fiber Addtl Attending Provider Instructions: Please continue on a low fiber diet until otherwise instructed by the surgeon Pending Studies at Discharge: Yes Studies:: surgical pathology Stand-Alone Forms: My [facility] Polar OLED, Smoking Cessation Medications and DC Order Prescriptions: New oxycodone-acetaminophen [Percocet] 5-325 mg tablet 1 - 2 tab PO .q4-6h PRN (Reason: pain, for initial therapy, max 6 tabs per day) Qty: 15 0RF Continued aspirin [Adult Low Dose Aspirin] 81 mg tablet,delayed release (DR/EC) 81 mg PO QPM Rx Instructions: @1500. cyanocobalamin (vitamin B-12) 1,000 mcg capsule 1,000 mcg PO QPM Rx Instructions: @1500. Eliquis 5 mg tablet 5 mg PO BID folic acid 1 mg tablet 1 mg PO QPM Rx Instructions: @1500. lisinopril 2.5 mg tablet 2.5 mg PO QPM Rx Instructions: @1500. metoprolol succinate 25 mg tablet extended release 24 hr 25 mg PO QPM Rx Instructions: @1500. multivitamin Tablet 1 tab PO QPM Rx Instructions: @1500. simvastatin 40 mg tablet 40 mg PO QPM Rx Instructions: @1500. spironolactone 25 mg tablet 25 mg PO QPM Rx Instructions: @1500. thiamine HCl (vitamin B1) 100 mg tablet 100 mg PO QPM Rx Instructions: @1500. pantoprazole 40 mg tablet,delayed release (DR/EC) 40 mg PO DAILY Qty: 30 5RF Discontinued neomycin 500 mg tablet 1 g PO .COMPLEX Qty: 6 0RF Rx Instructions: 1 g PO Take 2 tabs at 1pm, 2pm, 7pm the day before surgery; metronidazole 500 mg tablet 500 mg PO ONCE Qty: 3 0RF Rx Instructions: Take one tab at 1pm, 2pm, 7pm day before surgery. Discharge Orders: Discharge Order (Routine); Ordered 01/13/22 Ordered By: Cory Prescott Jr Admission Data Admit Date/Time: 12/18/21 17:08 Attending Provider: Lucho Huff Admit Provider: Luhco Huff Primary Care Provider: Rivas Malcolm Other Providers: Arturo Jensen ; [facility] ; Scout Castillo ; Gildardo Mcknight Other Interventions: Discharge Summary Assessment (RN) Last Done: 01/13/22 12:20 Coding Level of Care Code D/C DAY MANAGEMENT <30 MINS Diagnoses Colon cancer C18.9
== END 2022-01-13 13:44 | disposition home health service (06) | DRG 329 ==
LOC: ASU 09:42 → 3E 17:08 → 2E 12-19 22:46